=== PATIENT | female | born 1950 | race Caucasian/White ===

== ENCOUNTER → 2016-12-24 | Outpatient (CLI) | payer OTHER | LOC: BRMIMAGING 13:41 | PROVIDERS: ATTEND Internal Medicine | DX: M81.0 Age-related osteoporosis without current pathological fracture (principal); Z82.62 Family history of osteoporosis; Z78.0 Asymptomatic menopausal state ==

== ENCOUNTER → 2017-01-18 | Outpatient (CLI) | payer OTHER | LOC: BHFA 14:15 | PROVIDERS: ATTEND Internal Medicine Cardiovascular Disease | DX: Z09 Encounter for follow-up examination after completed treatment for conditions other than malignant neoplasm (principal); I77.9 Disorder of arteries and arterioles, unspecified ==

== ENCOUNTER → 2017-02-01 | Outpatient (CLI) | payer OTHER | LOC: BHFA 14:00 | PROVIDERS: ATTEND Family Medicine | DX: I67.9 Cerebrovascular disease, unspecified (principal) ==

== ENCOUNTER 2017-04-01 11:24 | Day surgery (SDC) | payer OTHER ==
[2017-04-01] MEDS ORDERED: ceFAZolin 2 GM/DEXTROSE 100 ML IV ONE (11:38)
[2017-04-01] MEDS ORDERED: LR 1,000 ML IV ONE (11:39)
[2017-04-01] MEDS ORDERED: LIDOCAINE 1% 2 ML INJ ID PRN (11:39)
[2017-04-01] MEDS ORDERED: ceFAZolin 2 GM in D5W 100 ML IV ONE (11:45)
--- NOTE | 2017-04-01 12:49 | PDHPUP ---
History & Physical Update H&P update statement: This history and physical update is based on an assessment of the patient which was completed after admission or registration (within 24 hours), but prior to the surgery/procedure. H&P update: H&P reviewed & patient examined, no change in patient's condition since H&P completed
[2017-04-01] MEDS ORDERED: BACITRACIN ZINC 14.2 GM OINTTUBE TP ONE (12:53)
[2017-04-01] MEDS ORDERED: BUPIVACAINE 0.5% 30 ML SDV ONE (12:53)
[2017-04-01] MEDS ORDERED: LIDOCAINE 1% 300 MG/30 ML SDV ONE (12:54)
[2017-04-01] MEDS ORDERED: ONDANSETRON 4 MG/2 ML VIAL IVP PRN (12:59)
[2017-04-01] MEDS ORDERED: ACETAMINOPHEN 500 MG TAB PO PRN (12:59)
[2017-04-01] MEDS ORDERED: NALOXONE HCL 0.4 MG/ML INJ IVP PRN (12:59)
[2017-04-01] MEDS ORDERED: fentaNYL 100 MCG/2 ML INJ IVP PRN (12:59)
[2017-04-01] MEDS ORDERED: HYDROCODONE/APAP 5/325 TAB PO PRN (12:59)
[2017-04-01] MEDS ORDERED: ALBUTEROL 3 ML DEYVIAL IH PRN (12:59)
--- NOTE | 2017-04-01 13:02 | PDANEPAE ---
ANE History of Present Illness Portacat ANE Past Medical History - Cardiovascular History Hx Hypertension: No Hx Arrhythmias: No Hx Chest Pain: No Hx Coronary Artery / Peripheral Vascular Disease: No Hx CHF / Valvular Disease: No Hx Palpitations: No Cardiovascular History Comment: left carotid dissection - Pulmonary History Hx COPD: No Hx Asthma/Reactive Airway Disease: No Hx Recent Upper Respiratory Infection: No Hx Oxygen in Use at Home: No Hx Sleep Apnea: No Sleep Apnea Screening Result - Last Documented: Negative - Neurologic History Hx Cerebrovascular Accident: No Hx Seizures: No Hx Dementia: No - Endocrine History Hx Diabetes: No - Renal History Hx Renal Disorders: No - Liver History Hx Hepatic Disorders: Yes Hepatic History Comment: hemangiomas - Neurological & Psychiatric Hx Hx Neurological and Psychiatric Disorders: No - Cancer History Hx Cancer: Yes Cancer History Comment: lymphoma - Congenital Disorder History Hx Congenital Disorders: No - GI History Hx Gastrointestinal Disorders: No Gastrointestinal History Comment: constipation, lymphoma to rectum - Other Health History Other Health History: none - Chronic Pain History Chronic Pain: Yes (Rfrozen shoulder) - Surgical History Prior Surgeries: 2015 cholecystectomy. parathyroid 2016,2016 biopsy for lymphoma, fibroid embolization ANE Review of Systems Review of Systems: - Exercise capacity METS (RN): 4 METS ANE Patient History - Allergies Allergies/Adverse Reactions: Sulfa (Sulfonamide Antibiotics) Allergy (Verified 02/22/14 17:28) - Home Medications Home Medications: Aspirin [Aspirin 81mg (*)] 02/23/14 [Last Taken 03/28/17] Naltrexone 3.5mg Lowdose Componded Capsule 02/23/14 [Last Taken 04/04/15] Cholecalciferol Vit D3 [Vitamin D3 (*)] 04/05/15 [Last Taken 04/04/15] Herbals/Supplements -Info Only 04/05/15 [Last Taken 04/04/15] Melatonin [Melatonin 5 mg] 04/05/15 [Last Taken 04/04/15] Simvastatin [Zocor] 04/05/15 [Last Taken 04/03/15] Cholecalciferol Vit D3 [Vitamin D3 (*)] 12/15/15 [Last Taken 03/31/17] Acetaminophen [Tylenol 325mg (*)] 03/31/17 [Last Taken 03/31/17 23:00] Acyclovir 03/31/17 [Last Taken 04/01/17 09:00] Dapsone 03/31/17 [Last Taken 04/01/17 09:00] Hydrocodone/APAP 5/325 [Hines 5/325 (*)] 03/31/17 [Last Taken Unknown] Polyethylene Glycol 3350 [Miralax 17 gm (*)] 03/31/17 [Last Taken Unknown] Sennosides/Docusate Sodium [Senokot-S] 03/31/17 [Last Taken Unknown] guaiFENesin [Mucinex 600 MG (*)] 03/31/17 [Last Taken 03/18/17] - NPO status NPO Since - Liquids (Date): 03/31/17 NPO Since - Liquids (Time): 20:30 NPO Since - Solids (Date): 03/31/17 NPO Since - Solids (Time): 23:00 - Smoking Hx Smoking Status: Never smoked - Family Anes Hx Family Hx Anesthesia Complications: none ANE Labs/Vital Signs - Vital Signs Blood Pressure: 104/65 Heart Rate: 86 Respiratory Rate: 18 O2 Sat (%): 93 Height: 149.86 cm Weight: 84.822 kg ANE Physical Exam - Airway Neck exam: FROM Mallampati Score: Class 2 Mouth exam: normal dental/mouth exam - Pulmonary Pulmonary: clear to auscultation - Cardiovascular Cardiovascular: regular rate and rhythym - ASA Status ASA Status: III ANE Anesthesia Plan Anesthesia Plan: GA w LMA (prior history of Trach 2/2 Coma)
[2017-04-01] MEDS ORDERED: PROPOFOL/EMULSION 500 MG/50 ML BOTTLE IV ONE (14:05)
[2017-04-01] MEDS ORDERED: fentaNYL 100 MCG/2 ML INJ ONE (14:28)
[2017-04-01] MEDS ORDERED: epHEDrine SULFATE 10 MG/ML SYR ONE (14:32)
[2017-04-01] MEDS ORDERED: ONDANSETRON 4 MG/2 ML VIAL ONE (14:36)
[2017-04-01] MEDS ORDERED: DEXAMETHASONE 4 MG/ML VIAL ONE (14:36)
--- NOTE | 2017-04-01 15:00 | POSTOPPROG ---
Post Op Note Date of Operation: 04/01/17 Surgeon: Lyle Ochoa Anesthesiologist: JADE Anesthesia: GET(General Endotracheal) Pre-op Diagnosis: LYMPHOMA Post-op Diagnosis: SAME Indication: CHEMO Procedure: LEFT SUBCLAVIAN PORT WITH FLOURO Findings: GOOD POSITION AND FLOW Inf/Abcess present in the surg proc area at time of surgery?: No Depth: Deep Incisional (Fascial) EBL: Minimal Complications: 0
--- NOTE | 2017-04-01 15:03 | POSTANESTH ---
Post Anesthetic Evaluation Cardiovascular Status: Normal, Stable Respiratory Status: Normal, Stable Level of Consciousness/Mental Status: Can Participate in Eval, Mildly Sleepy, Arousable Pain Control: Adequate, Prn Tx Ordered Nausea/Vomiting Control: Adequate, Prn Tx Ordered Complications Possibly Related to Anesthesia: None Noted
[2017-04-01 15:10] VITALS: TEMP 98.6
[2017-04-01] MEDS ORDERED: HYDROCODONE/APAP 5/325 TAB ONE (15:31)
[2017-04-01 16:58] VITALS: BP 105/64; PULSE 77; RESP 14; O2SAT 94
--- NOTE | 2017-04-02 15:12 | GOP ---
[f rep st] OPERATIVE REPORT DATE OF OPERATION: 04/01/2017 SURGEON: Lyle Ochoa MD DIRECTOR OF SPEECH PATHOLOGY: None. ANESTHESIOLOGIST: Tony Miller DO PREOPERATIVE DIAGNOSIS: Recurrent lymphoma. POSTOPERATIVE DIAGNOSIS: Recurrent lymphoma. PROCEDURE PERFORMED: Left subclavian port placement with fluoroscopic guidance. FINDINGS: Patient was found to have good position and good flow from the catheter. DESCRIPTION OF PROCEDURE: The patient was taken to the operating room, where she received satisfacto ry general laryngeal mask anesthetic by Dr. Miller. She was placed in supine position, prepped and dr aped in the usual sterile fashion, then placed in Trendelenburg position. A single stick was made in the left subclavian vein. Guidewire was introduced, position was confirmed with fluoroscopy. Subcu pocket was made in the 2nd intercostal space. Port tubing was passed from that pocket to the subcla vian insertion site. It was trimmed to the appropriate length using fluoroscopic guidance and then i ntroduced into the right atrium via the dilator and introducer sheath, which were removed. The port was secured to the fascia with 3-0 Vicryl. It was flushed with heparin and saline, and appeared to f unction well. The pocket was closed with 3-0 Vicryl for the subcu and a 4-0 Prolene subcuticular sti tch for the skin. The entrance site was closed with Prolene mattress suture. All wounds were infilt rated with 0.5% Marcaine and dressed. She tolerated the procedure well and was taken to the recovery room in good condition. No complications. /[id number]/MODL
== END 2017-04-01 17:20 | disposition home or self-care (01) ==
LOC: FSGY 11:24
PROVIDERS: ATTEND Surgery
DX: C83.10 Mantle cell lymphoma, unspecified site (principal); K62.9 Disease of anus and rectum, unspecified; D80.1 Nonfamilial hypogammaglobulinemia; E78.00 Pure hypercholesterolemia, unspecified; Z86.718 Personal history of other venous thrombosis and embolism; Z80.3 Family history of malignant neoplasm of breast
CPT/HCPCS: C1788; J0690; J1100; J1642; J2405; J2704; J3010

== ENCOUNTER 2017-04-07 11:18 | Observation (INO) | payer OTHER ==
[2017-04-07] MEDS ORDERED: ONDANSETRON 4 MG/2 ML VIAL IVP PRN (13:41)
[2017-04-07] MEDS ORDERED: ONDANSETRON DISINTEGRATING 4 MG TAB PO PRN (13:41)
[2017-04-07] MEDS ORDERED: NS 1,000 ML IV ONE (13:56)
--- NOTE | 2017-04-07 14:47 | GHP ---
[f rep st] HISTORY AND PHYSICAL DATE OF ADMISSION: 04/07/2017 CHIEF COMPLAINT: Fever. HISTORY OF PRESENT ILLNESS: This is a 67-year-old female with mantle cell lymphoma, sent into the spital by her primary oncologist, Dr. Elias, after having a fever in the office. History is notable fo r a complicated hospitalization early in 2017 for about 2 months at [facility], follow ing a reaction to a CAR T-cell therapy infusion. She has had a recent recurrence of her mantle cell lymphoma, had begun treatment with Rituxan by Dr. Elias. She got an infusion yesterday. She had a por t placed last week. This was due to rectal discomfort and the finding of a rectal mass. She does have a history of a PICC-associated DVT. She had 3 months of Xarelto, which ended in November. She presented today, found to be febrile to 102. She tells me that she had some chills a few days pr ior. She has no localizing symptoms including headache, stiff neck, chest pain, shortness of breath, cough, dysuria, rash on her skin, swollen joints, throat soreness. She received IV fluids and Tyleno l in the hospital, and is feeling better. PAST MEDICAL/SURGICAL HISTORY: 1. Left carotid artery dissection. 2. Osteopenia. 3. History of hypercholesterolemia. 4. Uterine fibroids. 5. Possible pleurisy/pericarditis. 6. Lymph node biopsy. 7. Parathyroidectomy. 8. Cholecystectomy. 9. Uterine embolization for fibroids. 10. . 11. Left tib-fib fracture requiring surgical fixation. MEDICATIONS: Please see medication reconciliation. ALLERGIES: Sulfa. FAMILY HISTORY: Sister had breast cancer. SOCIAL HISTORY: She is . 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 REVIEW OF SYSTEMS: A 10-point review of systems is conducted and is negative except per HPI. PHYSICAL EXAM: GENERAL: She is comfortable, in no acute distress. HEENT: Normocephalic, atraumati c. She has no pharyngeal erythema. She has no cervical lymphadenopathy. CHEST: Shows her to have a left-sided port which is accessed, there is no surrounding erythema, tenderness. CARDIOVASCULAR: Regular rate and rhythm. No murmurs, rubs, or gallops. NECK: Shows her to have no meningismus. PU LMONARY: Lungs clear to auscultation bilaterally. ABDOMEN: Abdominal exam is soft, mildly distende d, nontender to palpation. I do not appreciate any masses. SKIN: No rash. JOINT: Joint exam show s no joint effusions. : No [place]. NEUROLOGIC: Alert and oriented x3. She is moving all extremi ties. PSYCHIATRIC: Normal mood and affect. LABS: Labs from today show a hemoglobin of 6.7. White count 2.03, 80% neutrophils. Bicarb is 18. O therwise basic metabolic panel is normal. DATA: 1. Reviewed her old chart. 2. I reviewed her last chest x-ray, which was done about a week ago, shows clear lung claire, a rece ntly placed port. IMPRESSION: This is a 67-year-old female with mantle cell lymphoma, who presents with fever and anem ia. 1. Fever: We will do basic infectious workup. Urinalysis and chest x-ray will be checked. She had blood cultures drawn in clinic. I will not start empiric antibiotics at this point. She is actuall y not very symptomatic with this condition at all. 2. Hypotension: She is mildly hypotensive, but she is not tachycardic. I will give her another jose us of normal saline, and then provide slow IV fluids overnight. 3. Anemia: She will get transfused 2 units of irradiated packed red blood cells. 4. Mantle cell lymphoma: Treatment will be per Oncology. 5. Code status is full. /[id number]/MODL
[2017-04-07 15:11] LABS: COLOR AMBER; LEUKOCYTE ESTERASE,URINE NEGATIVE (NEGATIVE); NITRITE,URINE NEGATIVE (NEGATIVE)
[2017-04-07] MEDS: NS 1,000 ML IV SCH (15:30)
[2017-04-07] MEDS ORDERED: PROCHLORPERAZINE MALEATE 5 MG TAB PO PRN (15:41)
[2017-04-07] MEDS: ACETAMINOPHEN 325 MG TAB PO PRN ×2 (16:40→20:52)
--- NOTE | 2017-04-07 17:13 | GCON ---
[f rep st] CONSULTATION ONCOLOGY CONSULTATION DATE OF CONSULTATION: 04/07/2017 REASON FOR CONSULTATION: Mantle cell lymphoma. HISTORY OF PRESENT ILLNESS: The patient is a pleasant 67-year-old female, who is followed by my part ner, Dr. Dorina Elias. She was diagnosed with stage SHERI mantle cell lymphoma in July of 2012. Her initial treatment consisted of bendamustine and rituximab, which she completed in December of 2013. At t arielle of relapse, she was given ibrutinib, which she completed in January of 2016. At time of second re lapse, she was treated at the [facility] with CAR-T therapy, which she completed on August 02, 2016 after conditioning regimen with cyclophosphamide and fludarabine. She had significant cytokine release syndrome with her CAR-T therapy and developed grade 4 neurologic cytotoxicity, presumed fungal maxillary sinusitis, acute kidney injury requiring temporary dialysis, hypoxemic respiratory failure and mechanical ventilation with eventual tracheostomy, as well as a PI CC line associated right subclavian and axillary DVT. She has generally recovered from these complications. She completed a course of Xarelto anticoagulat ion in November of 2016. She is on chronic supplemental oxygen at night and does report chronic mild exertional dyspnea. Unfortunately, she recently developed recurrent mantle cell lymphoma in the rectum. She began the ri tuximab/Revlimid regimen recently. She received her first course of rituximab yesterday, April 06t h. She reports having a low-grade temperature that began over the weekend. This became acutely worse af ter receiving rituximab yesterday. She presented to the clinic today feeling unwell and was noted to have a fever of 102.3. She reports some associated chills. She denies headache. She denies a cough or purulent sputum. Sh e reports chronic dyspnea that is somewhat worse. She reports mild nausea. She denies diarrhea or a bdominal pain. Denies dysuria. Denies flank pain. She has been admitted to the hospital. She is noted to be anemic. She reports that she has had mult iple episodes of intermittent rectal bleeding related to her known mantle cell lymphoma mass in the r ectum. A 2-unit packed red cell transfusion with irradiated blood is planned for later today. A [facility] x-ray and urinalysis have been ordered as well as blood cultures. The patient is non-neutropenic. PAST MEDICAL HISTORY: 1. History of left carotid artery dissection. 2. Osteopenia. 3. Hypercholesterolemia. 4. Uterine fibroids. 5. History of pleurisy. 6. History of CAR-T therapy complication as outlined in HPI. PAST SURGICAL HISTORY: 1. Exploratory laparoscopy December 17, 2015. 2. Parathyroidectomy July 2015. 3. Cholecystectomy March 2015. 4. Uterine embolization for fibroids. 5. section x1. 6. Left tib-fib fracture requiring ORIF 2007. FAMILY MEDICAL HISTORY: Positive for a sister with breast cancer age 64. Mother with breast cancer in her 60s. Paternal grandfather had "cancer," type unknown. SOCIAL HISTORY: The patient is . 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 arleen is now retired. She is a nonsmoker. She does not drink alcohol. REVIEW OF SYSTEMS: As outlined above. Remainder of 12-point review of systems otherwise negative. PHYSICAL EXAMINATION: GENERAL: Somewhat frail-appearing, elderly female, who is in no acute distres s. She is lying comfortably in bed. She is using supplemental oxygen. HEENT: There is no scleral icterus. LYMPHATIC: There is no palpable submandibular, cervical, or supraclavicular adenopathy. C HEST: The patient has a Mediport in the left chest wall (this was placed on of last week). Site is clean without induration or evidence of infection. LUNGS: Sounds are decreased at both bas es. No wheeze or rhonchi. ABDOMEN: No flank tenderness. Abdomen is soft, nontender, nondistended. Bowel sounds normoactive. EXTREMITIES: No extremity swelling or edema. SKIN: No visible skin ra . NEUROLOGIC: Patient alert, oriented, and appropriate. LABORATORY STUDIES: White count is 2.03, hemoglobin 6.7, hematocrit 22.1, platelet count 130,000, ab solute neutrophil count is 1630. BUN 15, creatinine 0.8, sodium 137, potassium 3.7, chloride 106, bi carb 18, calcium 8.4. Liver function tests normal. Chest x-ray, blood cultures, and urinalysis are pending. IMPRESSION: 1. Mantle cell lymphoma, now with disease recurrence in rectum, status post first cycle of rituximab yesterday, April 06. 2. Non-neutropenic fever. 3. Recent history of CAR-T therapy (August 02, 2016). 4. Anemia, likely due to intermittent bleeding from #1. 5. Chronic hypoxemia, likely due to history of hypoxemic respiratory failure at time of CAR-T therap y. 6. History of catheter-associated deep venous thrombosis August 2016. The patient is a pleasant 67-year-old female who was admitted with non-neutropenic fever. She has no focal sign of bacterial infection on exam. Given that she is non-neutropenic and appears clinically stable, I agree with the decision to withhold antibiotic therapy currently. If she were to have any concerning findings on her chest x-ray, urinalysis or blood cultures, antibiotic therapy would be in itiated at that time. She will receive 2 units of packed red blood cells. These will be irradiated as per the direction of her primary oncologist, Dr. Elias. I have confirmed that the blood cells ordered for this evening are irradiated products. This has been confirmed with nursing staff. The patient will be observed in the hospital. If she improves quickly over the next 24 hours, she co uld potentially be discharged tomorrow or the day following. She informs me that she is due for IVIG tomorrow. If she remains inpatient tomorrow, this could pote ntially be given during her hospital stay. Her questions were answered. Her case was discussed with Dr. Mcdonnell of the hospitalist service, as well as 1 [place] nursing staff. Total time for today's visit was approximately 50 minutes, of which greater than 50% was spent in cou nseling and care coordination. Copy requested to: Dr. Nils Pollard /[id number]/MODL
[2017-04-07] MEDS: ACYCLOVIR 400 MG TAB PO SCH (21:35)
[2017-04-08] MEDS: ACETAMINOPHEN 325 MG TAB PO PRN (05:21)
[2017-04-08 05:45] LABS: ADD DIFF? YES; ADD MORPH? NO; ADD SCAN? NO; ATYPICAL LYMPHOCYTE FLAG 0 (0-99); FRAGMENT RBC FLAG 0 (0-99); HEMATOCRIT 25.5 % (38.0-47.0); HEMOGLOBIN 8.6 g/dL (12.6-16.3); LEFT SHIFT FLG 70 (0-99); LIPEMIA HEMOLYSIS FLAG 80 (0-99); MEAN CELL HEMOGLOBIN 30.4 pg (27.9-34.1); MEAN CELL HEMOGLOBIN CONCENTR. 33.7 g/dL (32.4-36.7); MEAN CELL VOLUME 90.1 fL (81.5-99.8); MEAN PLATELET VOLUME 9.8 fL (8.7-11.7); PLATELET CLUMPS FLAG 10 (0-99); PLATELET COUNT 102 10^3/uL (150-400); RED BLOOD CELL COUNT 2.83 10^6/uL (4.18-5.33); RED CELL DISTRIBUTION WIDTH 17.5 % (11.5-15.2)
[2017-04-08 06:03] LABS: ALANINE AMINOTRANSFERASE 33 IU/L (9-52); ALBUMIN 2.4 g/dL (3.5-5.0); ALKALINE PHOSPHATASE 106 IU/L (38-126); ANION GAP 8 mEq/L (8-16); ASPARTATE AMINOTRANSFERASE 24 IU/L (14-46); BILIRUBIN,TOTAL 2.8 mg/dL (0.1-1.4); CARBON DIOXIDE 21 mEq/l (22-31); CHLORIDE 111 mEq/L (97-110); CREATININE 0.8 mg/dL (0.6-1.0); GLOMERULAR FILTRATION RATE > 60; GLUCOSE 88 mg/dL (70-100); POTASSIUM 3.7 mEq/L (3.5-5.2); SODIUM 140 mEq/L (134-144); TOTAL PROTEIN 4.3 g/dL (6.3-8.2)
[2017-04-08 06:27] LABS: PLATELET ESTIMATE DECREASED (ADEQ)
[2017-04-08 06:28] LABS: HYPOCHROMIA 1+; POLYCHROMASIA 1+
[2017-04-08 06:41] LABS: BILIRUBIN-CONJUGATED 0.3 mg/dL (0.0-0.5); BILIRUBIN-UNCONJUGATED 2.5 mg/dL (0.0-1.1)
--- NOTE | 2017-04-08 08:34 | SOAPPROG ---
SOAP Progress Note Assessment/Plan: Assessment: 1) Mantle cell lymphoma with isolated rectal recurrence 2) Pancytopenia secondary to #1 3) Symptomatic anemia likely secondary to rectal bleeding from #1 4) Non neutropenic fever 5) H/O catheter related DVT 08/28 Plan: Erica feels better after receiving PRBC's yesterday. She would like to go home today. She did have a high temp last evening, but none currently. Chest x-ray and UA do not reveal a source of infection. I suspect that she may have either a viral process or a reaction to Rituxan. If she does well this AM (no further fevers, and a reasonable level of activity) , she will be d/c home later today. I discussed her case with Dr. Elias. She is due for IVIG today, our office will call her to change that to tomorrow at [facility]. She can be re-evaluated then. Her Revlimid will be delivered to her home today, and she is instructed to start it when it arrives. Plan d/w Dr. Mcdonnell. Patient questions answered. 04/08/17 08:28 Subjective: Feels better. Denies chest pain or cough. No further high fevers overnight. Objective: Vital Signs Temp Pulse Resp BP Pulse Ox 37.7 C 79 16 117/65 93 04/08/17 05:17 04/08/17 03:05 04/08/17 03:05 04/08/17 03:05 04/08/17 03:05 Laboratory Results 04/08/17 05:30 04/08/17 05:30 04/07/17 04/08/17 04/09/17 05:59 05:59 05:59 Intake Total 1356 Balance 1356 - Time Spent With Patient Time Spent With Patient: 30 minutes Physical Exam - Physical Exam General Appearance: alert, no apparent distress EENT: PERRL/EOMI Respiratory: lungs clear, other (using supplemental oxygen) Cardiac/Chest: regular rate, rhythm Abdomen: non-tender, soft Neuro/Psych: alert, normal mood/affect ICD10 Worksheet Patient Problems: Problems Problem Status Onset Abdominal mass Acute Acute cholecystitis Acute Uterine fibroid Acute Vaginal hemorrhage Acute
[2017-04-08] MEDS: ACYCLOVIR 400 MG TAB PO SCH (08:49)
[2017-04-08 08:59] VITALS: BP 109/61; PULSE 72; RESP 20; TEMP 98.4
[2017-04-08] MEDS: NS 1,000 ML IV SCH (08:59)
[2017-04-08] MEDS ORDERED: DAPSONE 100 MG TAB PO SCH (09:00)
[2017-04-08] MEDS ORDERED: ENOXAPARIN 40 MG/0.4 ML SYR SC SCH (09:00)
[2017-04-08 09:01] VITALS: O2SAT 90
--- NOTE | 2017-04-08 12:12 | GDS ---
[f rep st] DISCHARGE SUMMARY DIAGNOSES: 1. Mantle cell lymphoma with isolated rectal recurrence. 2. Pancytopenia, secondary to mantle cell lymphoma. 3. Symptomatic anemia status post transfusion of 2 units packed red blood cells. 4. Fever. 5. History of catheter-related deep vein thrombosis. HOSPITAL COURSE: A 67-year-old female admitted with a fever. No clear source was found. X-ray was negative. Urinalysis was negative. She did not receive empiric antibiotics. This could potentially be a viral syndrome. She feels much better today. She was anemic. She has mantle cell lymphoma and also has a rectal recurrence, with some slow bleedi ng from there. She did receive 2 units of packed red blood cells. She will be discharged, she will start Revlimid tonight, she will follow up for IVIG at [facility] tomorrow. She is anxious for discharge a nd comfortable with this plan. DISPOSITION: Discharged in stable condition. /[id number]/MODL
--- NOTE | 2017-04-08 17:17 | ASMTCMCOM ---
CM Note CM Note Notes: Pt admitted with fever. She is being DC'd today with no needs. Date Signed: 04/08/2017 05:17 PM Electronically Signed By:Roxy Castro LCSW
--- NOTE | 2017-04-09 09:51 | ASDISCHSUM ---
Discharge Information Plan Status: Medically Cleared to Leave: Discharge Date:04/08/2017 01:13 PM D/C Disposition: ADT D/C Disposition:Home, Routine, Self-Care Projected Discharge Date:04/08/2017 01:13 PM Transportation at D/C: Discharge Delay Reason: Follow-Up Date:04/08/2017 01:13 PM Discharge Slot: Final Diagnosis: Placement Information Patient Contact Information Contact Name:JULIEN Relationship:Dhaval Address: City:[place] Alternate Phone: State/Zip Code:[place] Email: Financial Information Financial Class: Primary Plan Desc:MEDICARE OUTPATIENT Primary Plan Number:[id number] Secondary Plan Desc:[employer] Secondary Plan Number:[id number] Assessment Information [facility] CM Progress Note CM Note CM Note Notes: Pt admitted with fever. She is being DC'd today with no needs. Date Signed: 04/08/2017 05:17 PM Electronically Signed By:Roxy Castro LCSW Intervention Information Intervention Type:*JAMES-Signed Date of Service:04/07/2017 03:53 PM Patient Type:Inpatient Staff Member:BERENICE Burrell, Marlyn Hours: Discipline: Severity: Comment:
== END 2017-04-08 13:13 | disposition home or self-care (01) ==
LOC: INTOOBSV 12:46 → F1N 12:46
PROVIDERS: ADMIT Student in an Organized Health Care Education/Training Program; ATTEND Student in an Organized Health Care Education/Training Program
PROC: 30233N1 Transfusion of Nonautologous Red Blood Cells into Peripheral Vein, Percutaneous Approach (ICD-10-PCS; principal; 2017-04-07)
DX: C83.10 Mantle cell lymphoma, unspecified site (principal); D61.810 Antineoplastic chemotherapy induced pancytopenia; D63.0 Anemia in neoplastic disease; R50.9 Fever, unspecified; I95.9 Hypotension, unspecified; Z86.718 Personal history of other venous thrombosis and embolism; Z80.3 Family history of malignant neoplasm of breast
CPT/HCPCS: 36430; 71020; G0378; G0379; J1650; P9016; P9040

== ENCOUNTER → 2017-04-20 | Outpatient (CLI) | payer OTHER ==
[~2017-04-20] MED LIST: IOPAMIDOL (ISOVUE 370) 100 ML BTL IV ONE
== END ==
LOC: FIMAGING 13:22
PROVIDERS: ATTEND Physician Assistant
DX: C83.19 Mantle cell lymphoma, extranodal and solid organ sites (principal)
CPT/HCPCS: 71275; Q9967

== ENCOUNTER → 2017-04-28 | Outpatient (CLI) | payer OTHER ==
[~2017-04-28] MED LIST changes: +ACETAMINOPHEN 325 MG TAB PO ONE; -IOPAMIDOL (ISOVUE 370) 100 ML BTL IV ONE; +diphenhydrAMINE 25 MG CAP PO ONE
== END ==
LOC: FOBOP 13:30
PROVIDERS: ATTEND Internal Medicine Hematology & Oncology
PROC: 30233N1 Transfusion of Nonautologous Red Blood Cells into Peripheral Vein, Percutaneous Approach (ICD-10-PCS; principal; 2017-04-28)
DX: C85.90 Non-Hodgkin lymphoma, unspecified, unspecified site (principal); D80.1 Nonfamilial hypogammaglobulinemia
CPT/HCPCS: 36430; J1642; P9016; P9040

== ENCOUNTER → 2017-05-13 | Outpatient (CLI) | payer OTHER | LOC: BHFA 16:30 | PROVIDERS: ATTEND Internal Medicine Cardiovascular Disease | DX: Z51.11 Encounter for antineoplastic chemotherapy (principal) ==

== ENCOUNTER → 2017-05-19 | Outpatient (CLI) | payer OTHER | LOC: BHFA 08:00 | PROVIDERS: ATTEND Internal Medicine Cardiovascular Disease | DX: R06.02 Shortness of breath (principal) ==

== ENCOUNTER → 2017-05-27 | Outpatient (CLI) | payer OTHER | LOC: FOBOP 14:43 | PROVIDERS: ATTEND Internal Medicine Hematology & Oncology | PROC: 30233N1 Transfusion of Nonautologous Red Blood Cells into Peripheral Vein, Percutaneous Approach (ICD-10-PCS; principal; 2017-05-27) | DX: C83.10 Mantle cell lymphoma, unspecified site (principal) | CPT/HCPCS: 36430; J1642; P9016; P9040 ==

== ENCOUNTER → 2017-06-02 | Outpatient (CLI) | payer OTHER ==
[~2017-06-02] MED LIST changes: -ACETAMINOPHEN 325 MG TAB PO ONE; +IOPAMIDOL (ISOVUE 370) 100 ML BTL IV ONE; -diphenhydrAMINE 25 MG CAP PO ONE
== END ==
LOC: FIMAGING 14:56
PROVIDERS: ATTEND Internal Medicine Hematology & Oncology
DX: R16.1 Splenomegaly, not elsewhere classified (principal); J98.11 Atelectasis; R07.9 Chest pain, unspecified; J90 Pleural effusion, not elsewhere classified; Z85.72 Personal history of non-Hodgkin lymphomas
CPT/HCPCS: 71275; Q9967

== ENCOUNTER 2017-06-09 11:05 | Outpatient (CLI) | payer OTHER ==
[2017-06-09] MEDS ORDERED: diphenhydrAMINE 25 MG CAP PO ONE (11:30)
[2017-06-09] MEDS ORDERED: ACETAMINOPHEN 325 MG TAB PO ONE (11:30)
[2017-06-09 12:16] VITALS: BP 119/57; PULSE 77; RESP 24; TEMP 98.2; O2SAT 91
== END 2017-06-09 16:30 | disposition home or self-care (01) ==
LOC: FOBOP 11:05
PROVIDERS: ATTEND Internal Medicine Hematology & Oncology
PROC: 30233N1 Transfusion of Nonautologous Red Blood Cells into Peripheral Vein, Percutaneous Approach (ICD-10-PCS; principal; 2017-06-09)
DX: C83.10 Mantle cell lymphoma, unspecified site (principal)
CPT/HCPCS: 36430; J1642; P9016; P9040

== ENCOUNTER 2017-06-24 09:39 | Outpatient (CLI) | payer OTHER ==
[2017-06-24] MEDS ORDERED: diphenhydrAMINE 25 MG CAP PO ONE (10:30)
[2017-06-24] MEDS ORDERED: ACETAMINOPHEN 325 MG TAB PO ONE (10:30)
== END 2017-06-24 16:12 | disposition home or self-care (01) ==
LOC: FOBOP 09:39
PROVIDERS: ATTEND Internal Medicine Hematology & Oncology
PROC: 30233N1 Transfusion of Nonautologous Red Blood Cells into Peripheral Vein, Percutaneous Approach (ICD-10-PCS; principal; 2017-06-24)
DX: C85.90 Non-Hodgkin lymphoma, unspecified, unspecified site (principal); D80.1 Nonfamilial hypogammaglobulinemia

== ENCOUNTER 2017-07-03 08:00 | Inpatient (IN) | payer OTHER ==
[2017-07-03] MEDS ORDERED: LET GEL TOPICAL 1 EA SYR TP ONE ×2 (08:40→08:42)
--- NOTE | 2017-07-03 09:02 | EDPHY ---
H & P Stated Complaint: Rectal bleeding;has hx rectal tumor HPI/ROS: Chief complaint: Rectal bleeding History of present illness: This is a 67-year-old female with a reported history of rectal cancer currently on chemotherapy who presents to the emergency department for rectal bleeding. She reports the bleeding began at approximately 7:00 a.m. this morning. She reports bright red blood per rectum. Symptoms have been persistent. She denies precipitating factors. She denies alleviating or aggravating factors. She denies other acute signs or symptoms. However, she has ongoing abdominal discomfort, constipation, nausea without vomiting. She has had the symptoms for number of weeks if not longer. No report of fever. No urinary symptoms. Review of systems: A 10 point review of systems was obtained and other than described above was negative - Personal History Current Tetanus Diphtheria and Acellular Pertussis (TDAP): Yes - Medical/Surgical History Hx Asthma: No Hx Chronic Respiratory Disease: No Hx Diabetes: No Hx Cardiac Disease: No Hx Renal Disease: No Hx Cirrhosis: No Hx Alcoholism: No Hx HIV/AIDS: No Hx Splenectomy or Spleen Trauma: No Other PMH: pmh- lymphoma--chemotherapy, uterine fibroids, disected carotoid artery (2002),2007 broken tib/fib. psh- GALLBLADDER, PARATHYROID, TIB/FIB - Social History Smoking Status: Never smoked - Physical Exam Exam: General Appearance: Alert, nontoxic. Eyes: Pupils equal and round no pallor or injection. ENT, Mouth: Mucous membranes moist. Respiratory: There are no retractions, lungs are clear to auscultation. Cardiovascular: Regular rate and rhythm. Gastrointestinal: Bowel sounds are present. Abdomen is distended. Diffusely tender to palpation. Rectal exam does show bright red blood around the anus. No active bleeding on my examination. Neurological: Alert and oriented x4. Skin: Warm and dry, no rashes. Musculoskeletal: Neck is supple non tender. Extremities are symmetrical, full range of motion. Psychiatric: Patient is oriented X 3, there is no agitation. Constitutional: Initial Vital Signs Temperature (C) 36.6 C 07/03/17 08:05 Heart Rate 110 H 07/03/17 08:05 Respiratory Rate 18 07/03/17 08:05 Blood Pressure 118/61 07/03/17 08:05 O2 Sat (%) 94 07/03/17 08:05 O2 Delivery Mode Room Air Allergies/Adverse Reactions: Sulfa (Sulfonamide Antibiotics) Allergy (Mild, Verified 07/03/17 08:12) Rash Home Medications: Medication Instructions Recorded Herbals/Supplements -Info Only 1 each PO DAILY 04/05/15 Cholecalciferol Vit D3 [Vitamin D3 1,000 units PO DAILY 12/15/15 (*)] Acyclovir [Zovirax 400 mg (*)] 400 mg PO BID 03/31/17 Dapsone [Dapsone 100 mg (*)] 100 mg PO DAILY 03/31/17 Bendamustine HCl [Bendeka (*)] 64 mg IV .MONTHLY 06/09/17 Bortezomib [Velcade IV] 1.7 mg IV .WEEKLY 06/09/17 riTUXimab [Rituxan 500mg (*)] 480 mg IV .MONTHLY 06/09/17 Lactulose [Lactulose] 15 ml PO DAILY PRN 07/03/17 Polyethylene Glycol 3350 [Miralax 17 gm PO DAILY PRN 07/03/17 17 gm (*)] Prochlorperazine Maleate 10 mg PO DAILY PRN 07/03/17 [Compazine 10mg (*)] Sennosides [Senokot 8.6mg (OTC)] 1 each PO DAILY PRN 07/03/17 oxyCODONE IR [Oxycodone Ir (*)] 5 mg PO DAILY PRN 07/03/17 Medical Decision Making ED Course/Re-evaluation: Patient is discussed with my secondary supervising physician Dr. Nick Jackson. Patient presents with bright red bleeding from her rectum. She is significantly anemic although she is normally rather anemic. Given active bleeding and level of anemia she will be admitted for further care to Dr. Bony Mcdonnell. I have consulted with GI Dr. Jade. He did a flex sigmoidoscopy on patient in the fall of 2016. He suspects bleeding from her rectal lymphoma. He would like to know hospitalist's and oncology's thoughts about how they would like him to proceed. He is happy to do another flexible sigmoidoscopy. I have consulted with patient's oncology group, Dr. Ribeiro. She did talk with the patient this morning. She is not sure is the cause of bleeding. She is in agreement with admission. The plan has been discussed with the patient voiced understanding and agreement with it. Differential Diagnosis: Included but not limited to lower gastrointestinal bleed, upper gastrointestinal bleed, coagulopathy - Data Points Laboratory Results: Laboratory Results 07/03/17 09:15 07/03/17 09:15 07/03/17 07/03/17 07/03/17 09:15 09:15 09:15 WBC RBC Hgb Hct MCV MCH MCHC RDW Plt Count MPV Neut % (Auto) Lymph % (Auto) [place] % (Auto) Eos % (Auto) Baso % (Auto) Nucleat RBC Rel Count Absolute Neuts (auto) Absolute Lymphs (auto) Absolute Monos (auto) Absolute Eos (auto) Absolute Basos (auto) Absolute Nucleated RBC Immature Gran % Seg Neutrophils % Band Neutrophils % Lymphocytes % Monocytes % Eosinophils % Metamyelocytes % Myelocytes % Immature Gran # Absolute Seg Neuts Absolute Band Neuts Absolute Lymphocytes Absolute Monocytes Absolute Eosinophils Absolute Metamyelocyte Absolute Myelocytes Platelet Estimate Polychromasia Hypochromasia Stomatocytes Smear Review By PT 13.3 SEC SEC (12.0-15.0) INR 0.99 (0.83-1.16) APTT 25.5 SEC SEC (23.0-38.0) Sodium 137 mEq/L mEq/L (135-145) Potassium 4.5 mEq/L mEq/L (3.5-5.2) Chloride 102 mEq/L mEq/L (97-110) Carbon Dioxide 25 mEq/l mEq/l (22-31) Anion Gap 10 mEq/L mEq/L (8-16) BUN 20 mg/dL mg/dL (7-23) Creatinine 0.7 mg/dL mg/dL (0.6-1.0) Estimated GFR > 60 Glucose 98 mg/dL mg/dL (70-100) Calcium 9.3 mg/dL mg/dL (8.5-10.4) Total Bilirubin 1.3 mg/dL mg/dL (0.1-1.4) Conjugated Bilirubin 0.2 mg/dL mg/dL (0.0-0.5) Unconjugated Bilirubin 1.1 mg/dL mg/dL (0.0-1.1) AST 17 IU/L IU/L (14-46) ALT 24 IU/L IU/L (9-52) Alkaline Phosphatase 98 IU/L IU/L (38-126) Total Protein 5.2 g/dL L g/dL (6.3-8.2) Albumin 3.1 g/dL L g/dL (3.5-5.0) Lipase 37 IU/L IU/L (23-300) Patient ABO/Rh A POSITIVE Antibody Screen NEGATIVE Crossmatch IS Only See Detail 07/03/17 09:15 WBC 6.76 10^3/uL 10^3/uL (3.80-9.50) RBC 2.44 10^6/uL L 10^6/uL (4.18-5.33) Hgb 7.5 g/dL L g/dL (12.6-16.3) Hct 23.5 % L % (38.0-47.0) MCV 96.3 fL fL (81.5-99.8) MCH 30.7 pg pg (27.9-34.1) MCHC 31.9 g/dL L g/dL (32.4-36.7) RDW 21.2 % H % (11.5-15.2) Plt Count 171 10^3/uL 10^3/uL (150-400) MPV 10.4 fL fL (8.7-11.7) Neut % (Auto) Not Reported Lymph % (Auto) Not Reported Valencia % (Auto) Not Reported Eos % (Auto) Not Reported Baso % (Auto) Not Reported Nucleat RBC Rel Count 0.0 % % (0.0-0.2) Absolute Neuts (auto) Not Reported Absolute Lymphs (auto) Not Reported Absolute Monos (auto) Not Reported Absolute Eos (auto) Not Reported Absolute Basos (auto) Not Reported Absolute Nucleated RBC 0.00 10^3/uL 10^3/uL (0-0.01) Immature Gran % Not Reported Seg Neutrophils % 52 % % Band Neutrophils % 28 % % Lymphocytes % 2 % % Monocytes % 11 % % Eosinophils % 2 % % Metamyelocytes % 4 % % Myelocytes % 1 % % Immature Gran # Not Reported Absolute Seg Neuts 3.52 10^/uL 10^/uL (1.70-6.50) Absolute Band Neuts 1.89 10^3/uL H 10^3/uL (0.00-0.70) Absolute Lymphocytes 0.14 10^3/uL L 10^3/uL (1.00-3.00) Absolute Monocytes 0.74 10^3/uL 10^3/uL (0.30-0.80) Absolute Eosinophils 0.14 10^3/uL 10^3/uL (0.03-0.40) Absolute Metamyelocyte 0.27 10^3/mL H 10^3/mL (0.00-0.00) Absolute Myelocytes 0.07 10^3/mL H 10^3/mL (0.00-0.00) Platelet Estimate ADEQUATE (ADEQ) Polychromasia 2+ H Hypochromasia 2+ H Stomatocytes 1+ H Smear Review By Pending PT INR APTT Sodium Potassium Chloride Carbon Dioxide Anion Gap BUN Creatinine Estimated GFR Glucose Calcium Total Bilirubin Conjugated Bilirubin Unconjugated Bilirubin AST ALT Alkaline Phosphatase Total Protein Albumin Lipase Patient ABO/Rh Antibody Screen Crossmatch IS Only Medications Given: Discontinued Medications Tetracaine/Epinephrine/Lidocaine (Let Gel Topical) 1 ea TP EDNOW ONE Stop: 07/03/17 08:43 Last Admin: 07/03/17 08:43 Dose: 1 ea Departure - Departure Disposition: [facility] Inpatient Acute Clinical Impression: Rectal bleed Anemia Qualifiers: Anemia type: unspecified type Qualified Code(s): D64.9 - Anemia, unspecified Condition: Fair
[2017-07-03 09:26] LABS: PLATELET COUNT 171 10^3/uL (150-400)
[2017-07-03 09:36] LABS: INR 0.99 (0.83-1.16); PROTIME(PATIENT) 13.3 SEC (12.0-15.0)
[2017-07-03] MEDS ORDERED: ONDANSETRON 4 MG/2 ML VIAL IVP PRN (11:54)
[2017-07-03] MEDS ORDERED: ONDANSETRON DISINTEGRATING 4 MG TAB PO PRN (11:54)
[2017-07-03] MEDS ORDERED: PROCHLORPERAZINE MALEATE 10 MG TAB PO PRN (11:57)
[2017-07-03] MEDS ORDERED: oxyCODONE IR 5 MG TAB PO PRN (11:57)
[2017-07-03] MEDS ORDERED: POLYETHYLENE GLYCOL 3350 17 GM PKT PO PRN (11:57)
[2017-07-03] MEDS ORDERED: SENNOSIDES 1 TAB PO PRN (11:57)
[2017-07-03] MEDS ORDERED: IOPAMIDOL (ISOVUE-300) 100 ML BTL ONE (12:01)
--- NOTE | 2017-07-03 12:39 | GHP ---
[f rep st] HISTORY AND PHYSICAL DATE OF ADMISSION: 07/03/2017 CHIEF COMPLAINT: GI bleed. HISTORY OF PRESENT ILLNESS: This is a 67-year-old female with a history of mantle cell lymphoma with a rectal recurrence. She has been treated by Dr. Elias for this. She notes that over the last week, she has had significant constipation, has not had a bowel movement, has tried multiple laxatives. Raiza bacon tried MiraLAX, magnesium citrate, suppository, lactulose. Over the past 2 days, she has had worsen ing rectal pain when she stands. Her abdomen has become more distended. She has had a small bit of nausea, but no vomiting. Today, she had worsening bleeding when she pushe d trying to go to the bathroom. She has off and on slow bleeding from her bottom, however this was n otably worse. It has continued. She is not feeling dizzy or lightheaded. PAST MEDICAL/SURGICAL HISTORY: 1. Mantle cell lymphoma as above. 2. Left carotid artery dissection. 3. 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 Hospitalized at 2 months at [facility]. 4. Osteopenia. 5. Hypercholesterolemia. 6. Fibroids. 7. Possible pleurisy/pericarditis. 8. Lymph node biopsy. 9. Parathyroidectomy. 10. Cholecystectomy. 11. Uterine embolization. 12. . 13. Left Tib Fib fracture requiring surgical fixation. MEDICATIONS: Please see medication reconciliation. ALLERGIES: None. FAMILY HISTORY: Her sister had breast cancer. SOCIAL HISTORY: She is . 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 She live s at home. She does not use any assistive devices for ambulating. REVIEW OF SYSTEMS: A 10-point review of systems is conducted and is negative except per HPI. PHYSICAL EXAM: VITAL SIGNS: Blood pressure 114/65, heart rate 89, respiration rate 16, saturating 9 3% on 2 L, temperature is 37. GENERAL: The patient is a pleasant female, resting comfortably in bed , in no acute distress. HEENT: Normocephalic, atraumatic. CARDIOVASCULAR: Regular rate and rhythm . She has a 2/6 systolic murmur. PULMONARY: Exam shows her to be in no respiratory distress. LUNG S: Clear bilaterally. ABDOMEN: Shows her abdomen to be distended. She does have bowel sounds. Raiza bacon is very mildly tender to palpation. RECTAL: Exam shows her to have cosme red blood. There is a p alpable tumor approximately 3 cm into her rectum. This is somewhat painful. SKIN: Shows no rash. : Exam shows no [place]. NEUROLOGIC: Exam shows her to be alert and oriented x3. She has a nonfoc al neurologic exam. PSYCHIATRIC: Exam shows normal mood and affect. LABS: Hemoglobin is 7.5. INR 0.99. Basic metabolic panel is normal. Albumin is 3.1. DATA: 1. I discussed this with Dr. Jade. He will consult later this afternoon. 2. I reviewed her chart. IMPRESSION AND PLAN: 1. Lower gastrointestinal bleed: Suspect that this is likely due to rectal mass. She has also had worsening pain while standing. She does have internal hemorrhoids, which would have to consider, tho ugh I think this is less likely. She is hemodynamically stable, though she was mildly tachycardic wh en she first presented. I think it is reasonable not to perform a flex sig today, as we know the lik oly source of bleeding. There is unlikely any therapeutic interventions. We will transfuse her 1 un it of packed red blood cells given her active bleeding and baseline low hemoglobin. She is not on an y blood thinners right now. 2. Constipation/possible obstruction: Also discussed with Dr. Jade. She had a flex sig 1 month a go in [place], which showed no obstruction. I think CT scan at this point is appropriate. Could cons ider endoscopy tomorrow based on findings and clinical course. We will provide her with lactulose an d other p.r.n. laxatives for now. 3. Mantle cell lymphoma: She is currently undergoing treatment. She will be seen by Dr. Quintin padilla. CT scan will help to evaluate progression as well. We will continue her acyclovir dapsone at this point. 4. Code status: She would like to be full. 5. Venous thromboembolism risk is moderate to high, however with active bleeding pharmacologic proph ylaxis contraindicated. Sequential compression devices. /[id number]/MODL
--- NOTE | 2017-07-03 13:02 | PDMN ---
Medical Necessity Medical necessity: C/M review: est. > 2 MN LOS for eval and TX of acute lower gastrointestinal bleed - suspect likely due to rectal mass, constipation, possible obstruction requiring 1 unit PRBCs, planned 07/03/2017 CT abdomen / pelvis, Oncology consult, GI consult, ongoing oral lactulose, other laxatives as needed, monitor CBC, comorbid history of mantle cell lymphoma with a rectal recurrence currently undergoing treatment, left carotid artery dissection, severe reaction to CAR-T-cell therapy infusion requiring hospitalization, osteopenia, hypercholesterolemia, fibroids, possible pleurisy / pericarditis per H/P.
[2017-07-03] MEDS ORDERED: diphenhydrAMINE 25 MG CAP PO ONE ×2 (14:00)
[2017-07-03] MEDS: ACETAMINOPHEN 325 MG TAB PO PRN (14:15)
--- NOTE | 2017-07-03 14:56 | GCON ---
[f rep st] CONSULTATION NEW PATIENT CONSULTATION CONSULTING PHYSICIAN: Bony Mcdonnell. REASON FOR CONSULTATION: Patient known to [facility], specifically a patient of Dr. Dorina Elias, with mantle cell lymphoma of the rectum. Patient admitted for rectal bleeding. HISTORY OF PRESENT ILLNESS: The patient is a very pleasant 67-year-old woman who is currently under the care of Dr. Dorina Elias for mantle cell lymphoma. The patient's history starts back in 2012, when she saw Dorina Elias for leukocytosis. Ultimately, a bone marrow was done that showed mantle cell lymphoma, and scans were consistent. She was initially treated with bendamustine and rituximab from July 2013 to December of 2013. She then went on to biologic therapy with ibrutinib when she progressed. This was given in January of 2016. Then she was given Revlimid and dexamethasone from March 2017 until May 2017 and progressed. More recently, she was on immunotherapy with CAR-T cells. This was done in July 2016 with cyclophosphamide and fludarabine conditioning regimen under the care of Dr. Leobardo Pollard at [facility]. The patient's scans at that time looked very good, and Dorina Elias was following her conservatively. The patient reports at that time she started to feel abdominal fullness and pressure and came back into the clinic. More recently, a PET-CT was done in May 2017, showing progression of mantle cell lymphoma evidenced by marked increased size of infiltrative rectal mass and lymphadenopathy in the low pelvis, and new infiltrative mass emanating off the superior aspect of spleen and left upper quadrant. She also had a small left pleural effusion. The conglomerate mass that encases and is inseparable from the rectum measured 10.6 cm medially by 7.1 cm AP. She has associated lymphadenopathy. The patient is now on a regimen of Velcade, bendamustine, and Rituxan. She received cycle 1, day 22 on 06/30/2017 and was due to start cycle 2 of chemotherapy 07/14/2017. I will note she has had significant issues with constipation on low dose of narcotics. Today, I received a phone call this morning. The patient complaining of ongoing rectal blood loss. She states the blood was nonstop, only stopped for a short period of time when she was lying down. She also complains of difficulty urinating, significant lower abdominal pressure and bloating. She does report she has been constipated. She has been taking a regimen of magnesium citrate, lactulose, Senokot, etc., and this was on an outpatient ongoing basis due to severe constipation. Today, she does report she had some diarrhea in the emergency room. She reports some drenching night sweats a few days ago. Her weight has been stable. She denies fevers. PAST MEDICAL HISTORY: 1. Significant for mantle cell lymphoma, as described above, with recurrence 8 months post CAR-T cell therapy. 2. Anemia. 3. Hypogammaglobulinemia. 4. Right upper extremity DVT, not currently on anticoagulation. 5. Dyspnea with exertion. 6. Constipation. FAMILY HISTORY: Noncontributory. SOCIAL HISTORY: Noncontributory. Medications have been reviewed in EMR, as well as allergies. REVIEW OF SYSTEMS: As per HPI. Otherwise, review of systems negative. PHYSICAL EXAM: VITAL SIGNS: Today, blood pressure 117/64, pulse of 93, respiration rate 16, satting 92% on 4 L of oxygen. Her temp is 36.9. GENERAL: Looks older than her stated age, frail, not in acute distress but fatigued appearing. HEENT: Anicteric sclera but pale conjunctiva. HEART: Regular rate and rhythm. LUNGS: She has some crackles at the left lower base, otherwise clear. ABDOMEN: Distended. Bowel sounds are present but diminished. She is tender throughout. LOWER EXTREMITIES: No significant edema. NEUROLOGIC: Nonfocal. LABORATORY DATA: Labs today show a white blood cell count of 6.7; hemoglobin 7.5, her baseline is anywhere between 7.3 and 9; hematocrit 23.5; platelet count of 171,000. INR 0.99. Sodium 137, potassium 4.5, creatinine 0.7, calcium 9.3. Total bilirubin 1.3, AST 17, ALT 24, total protein 5.2, albumin 3.1, lipase of 37. I will mention her LDH has been going up and was recently over 1000. ASSESSMENT AND PLAN: 67-year-old woman with mantle cell lymphoma, progressed, and now on Velcade, bendamustine and rituximab. She presents with ongoing rectal bleeding, lower pelvic pain and bloating. 1. Rectal bleeding. Certainly concern related to the large rectal mass that was seen on PET-CT in May of 2017. Patient does also have a history of hemorrhoids. Her constipation may have led to hemorrhoidal bleed, although I do think the mass may need to be evaluated. If there is ongoing bleeding there , we may need short-term intervention. If internal mass is larger, could consider local/palliative XRT. (discuss below). Will follow up results of sigmoid scope. 2. Anemia, at baseline but progressive, likely due to #1. She will be transfused 1 unit of packed red blood cells today. 3. Mantle cell lymphoma. Is now on fourth-line therapy with Velcade, bendamustine and rituximab. Certainly, based on her symptomatology of pelvic pressure, abdominal bloating, and the rectal bleeding, I am concerned about early progression. She clearly has demonstrated refractory disease despite multiple therapeutic attempts. Depending on whether e/o obstruction or not, may need palliative intervention. If internal mass, consider XRT as MCL should be radiosensitive. Of course, would be concerned about perforation if mass sizeable or if external rectal compression. May favor diverting ostomy. PLAN: 1. CT imaging of abdomen today, and will get a GI consultation later today. May need a repeat sigmoidoscopy. 2. History of DVT, PICC line associated, not on anticoagulation at this time. 3. Dysuria, possibly related to this admission. Can check a urinalysis. 4. Shortness of breath, either related to anemia or other. She is on oxygen via nasal cannula. We will continue to follow this patient in the hospital and make recommendations as appropriate. /[id number]/MODL MTDD
[2017-07-03] MEDS ORDERED: LACTULOSE 20 GM/30 ML UDCUP PO SCH (16:00)
--- NOTE | 2017-07-03 17:47 | SOAPPROG ---
[facility] Progress Note Assessment/Plan: Assessment:Plan: full dictated consult to follow has colonic obstruction likely from rectal lymphoma will consult surgery, Dr Ochoa et al colonic stent a possibility but difficult given location 07/03/17 17:40 Objective: Vital Signs Temp Pulse Resp BP Pulse Ox 37.3 C 84 16 110/65 96 07/03/17 15:45 07/03/17 15:45 07/03/17 15:45 07/03/17 15:45 07/03/17 15:45 07/02/17 07/03/17 07/04/17 05:59 05:59 05:59 Intake Total 900 Output Total 100 Balance 800 PT 13.3 SEC (12.0-15.0) 07/03/17 09:15 INR 0.99 (0.83-1.16) 07/03/17 09:15 ICD10 Worksheet Patient Problems: Problems Problem Status Onset Anemia Acute Rectal bleed Acute Abdominal mass Acute Acute cholecystitis Acute Uterine fibroid Acute Vaginal hemorrhage Acute
--- NOTE | 2017-07-03 18:41 | GCON ---
[f rep st] CONSULTATION DATE OF CONSULTATION: 07/03/2017 REQUESTING PHYSICIAN: Bony Mcdonnell. INDICATION FOR CONSULTATION: Abdominal pain, hematochezia, known history of mantle cell lymphoma of the rectum HPI: The patient is a pleasant 67-year-old female whom I know from previous outpatient evaluation. She has a history of mantle cell lymphoma, which has involved her rectum as well as her left upper quadrant and spleen. I did perform a flexible sigmoidoscopy a few months ago, which showed a significant abnormality in her rectum consistent with lymphoma. She had a subsequent flexible sigmoidoscopy within the last month or two, which showed increased size of that. She presented to the hospital with increased abdominal pain and distention and constipation. She has tried multiple laxatives but not been able to move her bowels. Recently, she had been placed on lactulose. She has been getting more gas and distention. A CT scan obtained today did reveal colonic obstruction, likely related to her rectal lymphoma, which has increased in size to 12 cm. She is in the hospital for the above, and I am called to help and evaluate and treat in that regard. PAST MEDICAL HISTORY: Mantle cell lymphoma, osteopenia, hypercholesterolemia. She had a severe reaction to CAR T-cell therapy infusion and was hospitalized at [facility] for about 2 months. PAST SURGICAL HISTORY: Parathyroidectomy, cholecystectomy, uterine embolization , , lymph node biopsies, left carotid artery dissection. ALLERGIES: No known drug allergies. MEDICATIONS: Currently include Tylenol p.r.n., acyclovir 400 mg b.i.d., vitamin D 1000 units daily, dapsone 100 mg daily, Cephulac 20 mg t.i.d., Zofran p.r.n., oxycodone 5 mg daily p.r.n., MiraLAX p.r.n., Compazine p.r.n., senna. SOCIAL HISTORY: Retired software computer specialist. Worked for [employer]. Does not use tobacco. Never used tobacco. Not drinking alcohol at the present time. FAMILY HISTORY: Sister with breast cancer. Grandfather with pancreatic cancer. Mother with breast cancer. REVIEW OF SYSTEMS: A complete review of systems was performed and is negative other than noted in the HPI. PHYSICAL EXAM: GENERAL: Well-developed, well-nourished, chronically ill- appearing, sitting in bed, in no acute distress. VITAL SIGNS: Blood pressure is 110/65, pulse is 84, respirations 16. She is 96% on 4 L. Temperature 37.3. EYES: Anicteric. DEBORAH, EOMI. MOUTH: No lesions. Moist membranes. NECK: Supple. Full range of motion. No JVD. BACK: No spine tenderness. No CVA tenderness. LUNGS: Clear. CARDIAC: S1, S2. Regular rate and rhythm. A 2/6 systolic ejection murmur is appreciated. ABDOMEN: Bowel sounds are normal in frequency. Mildly increased pitch. Abdomen is distended, soft, mildly tender to palpation. No rebound or guarding. EXTREMITIES: No cyanosis, clubbing, or edema. NEUROLOGIC: Cranial nerves intact. SKIN: No stigmata of advanced liver disease. RECTAL: Exam by hospitalist shows cosme blood. LABORATORY DATA: From today, WBC 6.76, hemoglobin 7.5, hematocrit 23.5, platelet count 171. ProTime 13.3, INR 0.99, PTT 25.5. Sodium 137, potassium 4.5, chloride 102, bicarb 25, BUN 20, creatinine 0.7, glucose 98, calcium 9.3, total bilirubin 1.3, AST 17, ALT 24, alkaline phosphatase 98, albumin 3.1, total protein 5.2, lipase 37. Her previous hemoglobins and hematocrits, on June 08, prior to transfusion, hemoglobin 6.8. On June 16, after transfusion, hemoglobin 9.4; June 23, hemoglobin 7.3; June 30, hemoglobin 8.6. PET scan from June 04 shows progression of mantle cell lymphoma evidenced by marked increase in size of infiltrative rectal mass and lymphadenopathy in the low pelvis and new infiltrative mass emanating off the superior aspect of the spleen in the left upper quadrant. There is no evidence of metabolic activity in the neck or chest. ASSESSMENT: 1. Colonic obstruction likely related to aggressive mantle cell lymphoma. 2. Lower gastrointestinal bleed related to rectal mantle cell lymphoma. 3. Anemia related to her ongoing blood loss and chronic illness. RECOMMENDATIONS: 1. I will consult Dr. Ochoa for possible surgical treatment of her obstruction. I have also contacted Dr. Aguilera, my partner, who does colonic stents. I will go to radiology and look at the CT, but he feels that rectal lesions are not the most amenable to stenting and lymphomas are not even amenable as adenocarcinomas. 2. I have contacted Dr. Ribeiro from Oncology and discussed above and she is in agreement with the plan. 3. Discontinue lactulose, Miralax, Senna 4. I am going to change light diet to NPO pending evaluation. She is passing a small amount of flatus at times. 5. Further recommendations to follow the results of the above and clinical course. Thank you for allowing me to participate in this patient's healthcare. Do not hesitate to call me with any questions. /[id number]/MODL MTDD
[2017-07-03] MEDS: ACYCLOVIR 400 MG TAB PO SCH (21:54)
[2017-07-03] MEDS: MELATONIN 3 MG TAB PO SCH (21:54)
[2017-07-03] MEDS: D5W 1/2 NS 1,000 ML IV SCH (21:55)
[2017-07-03] MEDS ORDERED: MELATONIN 3 MG TAB PO ONE (23:11)
[2017-07-03] MEDS: oxyCODONE IR 5 MG TAB PO PRN (23:18)
[2017-07-04 05:46] LABS: PLATELET COUNT 144 10^3/uL (150-400)
[2017-07-04] MEDS: D5W 1/2 NS 1,000 ML IV SCH (06:05)
--- NOTE | 2017-07-04 08:44 | SOAPPROG ---
GUALBERTO Progress Note Assessment/Plan: Assessment: pt with mantle cell lymphoma and rectal mass causing obstruction/ needs colostomy risks and options fully discussed passing flatus but no bms also anemic Plan:loop colostomy 07/04/17 08:42 Objective: Vital Signs Temp Pulse Resp BP Pulse Ox 37.2 C 82 17 130/85 H 96 07/04/17 08:00 07/04/17 08:00 07/04/17 08:00 07/04/17 08:00 07/04/17 08:00 Laboratory Results 07/04/17 05:00 07/04/17 05:00 07/03/17 07/04/17 07/05/17 05:59 05:59 05:59 Intake Total 1350 975 Output Total 700 Balance 650 975 PT 13.3 SEC (12.0-15.0) 07/03/17 09:15 INR 0.99 (0.83-1.16) 07/03/17 09:15 ICD10 Worksheet Patient Problems: Problems Problem Status Onset Anemia Acute Rectal bleed Acute Abdominal mass Acute Acute cholecystitis Acute Uterine fibroid Acute Vaginal hemorrhage Acute
[2017-07-04] MEDS: ACYCLOVIR 400 MG TAB PO SCH ×2 (08:58→23:06)
[2017-07-04] MEDS: DAPSONE 100 MG TAB PO SCH (08:58)
[2017-07-04] MEDS: CHOLECALCIFEROL VIT D3 1,000 UNITS TAB PO SCH (08:59)
--- NOTE | 2017-07-04 09:44 | PDANEPAE ---
ANE History of Present Illness GI CA w/ rectal obstruction here for loop colostomy ANE Past Medical History - Cardiovascular History Hx Hypertension: No Hx Arrhythmias: No Hx Chest Pain: No Hx Coronary Artery / Peripheral Vascular Disease: No Hx CHF / Valvular Disease: No Hx Palpitations: No Cardiovascular History Comment: left carotid dissection - Pulmonary History Hx COPD: No Hx Asthma/Reactive Airway Disease: No Hx Recent Upper Respiratory Infection: No Hx Oxygen in Use at Home: Yes O2 in Use at Home (L/minute): 2 Hx Sleep Apnea: No Sleep Apnea Screening Result - Last Documented: Negative - Neurologic History Hx Cerebrovascular Accident: No Hx Seizures: No Hx Dementia: No - Endocrine History Hx Diabetes: No - Renal History Hx Renal Disorders: No - Liver History Hx Hepatic Disorders: Yes Hepatic History Comment: hemangiomas - Neurological & Psychiatric Hx Hx Neurological and Psychiatric Disorders: No - Cancer History Hx Cancer: Yes Cancer History Comment: lymphoma - Congenital Disorder History Hx Congenital Disorders: No - GI History Hx Gastrointestinal Disorders: No Gastrointestinal History Comment: constipation, lymphoma to rectum - Other Health History Other Health History: none - Chronic Pain History Chronic Pain: Yes (Rfrozen shoulder) - Surgical History Prior Surgeries: 2015 cholecystectomy. parathyroid 2016,2016 biopsy for lymphoma, fibroid embolization ANE Review of Systems Review of Systems: - Exercise capacity Exercise capacity: >=4 METS ANE Patient History - Allergies Allergies/Adverse Reactions: Sulfa (Sulfonamide Antibiotics) Allergy (Mild, Verified 07/03/17 08:12) Rash - Home Medications Home Medications: Herbals/Supplements -Info Only 1 each PO DAILY 04/05/15 [Last Taken 06/09/17 08: 00] Cholecalciferol Vit D3 [Vitamin D3 (*)] 1,000 units PO DAILY 12/15/15 [Last Taken 07/02/17] Acyclovir [Zovirax 400 mg (*)] 400 mg PO BID 03/31/17 [Last Taken 07/02/17] Dapsone [Dapsone 100 mg (*)] 100 mg PO DAILY 03/31/17 [Last Taken 07/02/17] Bendamustine HCl [Bendeka (*)] 64 mg IV .MONTHLY 06/09/17 [Last Taken 06/08/17] Bortezomib [Velcade IV] 1.7 mg IV .WEEKLY 06/09/17 [Last Taken 06/08/17] riTUXimab [Rituxan 500mg (*)] 480 mg IV .MONTHLY 06/09/17 [Last Taken 06/08/17] Lactulose [Lactulose] 15 ml PO DAILY PRN 07/03/17 [Last Taken 07/02/17] Polyethylene Glycol 3350 [Miralax 17 gm (*)] 17 gm PO DAILY PRN 07/03/17 [Last Taken Unknown] Prochlorperazine Maleate [Compazine 10mg (*)] 10 mg PO DAILY PRN 07/03/17 [Last Taken Unknown] Sennosides [Senokot 8.6mg (OTC)] 1 each PO DAILY PRN 07/03/17 [Last Taken Unknown] oxyCODONE IR [Oxycodone Ir (*)] 5 mg PO DAILY PRN 07/03/17 [Last Taken 07/02/17] - NPO status NPO Status: no food or drink >8 hours NPO Since - Liquids (Date): 07/04/17 NPO Since - Liquids (Time): 00:00 NPO Since - Solids (Date): 07/04/17 NPO Since - Solids (Time): 00:00 - Anes Hx Anes Hx: no prior problems - Smoking Hx Smoking Status: Never smoked - Alcohol Use Alcohol Use: None - Family Anes Hx Family Anes Hx: none Family Hx Anesthesia Complications: none ANE Labs/Vital Signs - Labs Result Diagrams: 07/04/17 05:00 07/04/17 05:00 - Vital Signs Blood Pressure: 130/85 Heart Rate: 77 Respiratory Rate: 16 O2 Sat (%): 96 Height: 149.86 cm Weight: 39.916 kg ANE Physical Exam - Airway Neck exam: FROM Mallampati Score: Class 2 Mouth exam: normal dental/mouth exam - Pulmonary Pulmonary: no respiratory distress, clear to auscultation - Cardiovascular Cardiovascular: regular rate and rhythym, no murmur, rub, or gallop - ASA Status ASA Status: III ANE Anesthesia Plan Anesthesia Plan: GA w LMA
[2017-07-04] MEDS ORDERED: MIDAZOLAM 2 MG/2 ML VIAL IVP ONE (09:46)
[2017-07-04] MEDS ORDERED: BUPIVACAINE 0.5% 30 ML SDV ONE (09:47)
[2017-07-04] MEDS ORDERED: fentaNYL 100 MCG/2 ML INJ ONE ×3 (09:55→12:16)
[2017-07-04] MEDS ORDERED: PROPOFOL 200 MG/20 ML VIAL ONE (09:55)
[2017-07-04] MEDS ORDERED: DEXAMETHASONE 4 MG/ML VIAL ONE (09:57)
[2017-07-04] MEDS ORDERED: ONDANSETRON 4 MG/2 ML VIAL ONE ×2 (09:57→12:43)
[2017-07-04] MEDS ORDERED: LIDOCAINE 2% 100 MG/5 ML SYR ONE (09:57)
[2017-07-04] MEDS ORDERED: ROCURONIUM 50 MG/5 ML VIAL ONE (09:57)
[2017-07-04] MEDS ORDERED: MIDAZOLAM 2 MG/2 ML VIAL ONE (10:03)
[2017-07-04] MEDS ORDERED: cefOXitin SODIUM 2 GM in STERILE WATER INJ 21 ML IV ONE (10:16)
--- NOTE | 2017-07-04 10:17 | PDHPUP ---
History & Physical Update H&P update statement: This history and physical update is based on an assessment of the patient which was completed after admission or registration (within 24 hours), but prior to the surgery/procedure.
--- NOTE | 2017-07-04 11:11 | POSTOPPROG ---
Post Op Note Date of Operation: 07/04/17 Surgeon: Lyle Ochoa Anesthesiologist: jonathan Anesthesia: GET(General Endotracheal) Pre-op Diagnosis: rectal obstruction/ lymphoma Post-op Diagnosis: same Indication: obstruction Procedure: sigmoid loop colostomy Findings: impacted stool amd distention Inf/Abcess present in the surg proc area at time of surgery?: Yes Depth: Organ Space EBL: Minimal Complications: 0
[2017-07-04] MEDS ORDERED: ALBUTEROL 3 ML DEYVIAL ONE ×2 (11:21→11:41)
[2017-07-04] MEDS ORDERED: FUROSEMIDE 20 MG/2 ML VIAL ONE (11:30)
[2017-07-04] MEDS ORDERED: HYDROmorphONE/DILAUDID 1 MG/ML INJ IVP PRN (11:34)
[2017-07-04] MEDS ORDERED: ONDANSETRON 4 MG/2 ML VIAL IVP PRN (11:34)
[2017-07-04] MEDS ORDERED: fentaNYL 100 MCG/2 ML INJ IVP PRN (11:34)
[2017-07-04] MEDS ORDERED: NALOXONE HCL 0.4 MG/ML INJ IVP PRN (11:34)
[2017-07-04] MEDS ORDERED: FUROSEMIDE IV ONE (11:35)
[2017-07-04] MEDS ORDERED: NS IV ONE (11:35)
--- NOTE | 2017-07-04 11:38 | POSTANESTH ---
Post Anesthetic Evaluation Cardiovascular Status: Normal, Stable, Similar to Pre-Op Cond Respiratory Status: Tx Decrease in SpO2 (satting in the 80's, redosed sugammadex , lasix 10 mg IV, BiPAP ordered), Requires Airway Assist Level of Consciousness/Mental Status: Can Participate in Eval Pain Control: Adequate, Prn Tx Ordered Nausea/Vomiting Control: Adequate, Prn Tx Ordered Complications Possibly Related to Anesthesia: None Noted
[2017-07-04] MEDS ORDERED: FUROSEMIDE 20 MG/2 ML VIAL IVP ONE (11:45)
--- NOTE | 2017-07-04 12:11 | SOAPPROG ---
SOAP Progress Note Assessment/Plan: Assessment/Plan: 67 yo w mantle cell lymphoma (known rectal mass) who p/w severe rectal bleeding , pelvic pressure, and abdominal bloating CT imaging w obstruction and obvious worsening of dz compared to PET in 05/2017 1. rectal bleeding and obstruction - due to enlarging tumor pt refractory to 1st cycle of velcade, bendamustine, rituxan (multiple prior lines of therapy including CAR-T) pt had diverting ostomy today - d/w Dr Ochoa. Procedure done laparoscopically; was not able to see much but some ascites reasonable to have [facility] consult for palliative XRT to control bleeding - likely too large of radiation field to encompass whole mass (12cm) d/w Dr Elias plans for future systemic therapy 2. abdominal bloating/pelvic pressure - due to #1 3. anemia - due to #1. s/p 1 unit PRBC 4. MCL - refractory needs localized treatment to control symptoms Subjective: in OR this morning for diverting ostomy Objective: Vital Signs Temp Pulse Resp BP Pulse Ox 36.8 C 77 16 130/85 H 96 07/04/17 09:35 07/04/17 09:46 07/04/17 09:46 07/04/17 09:46 07/04/17 09:46 Laboratory Results 07/04/17 05:00 07/04/17 05:00 07/03/17 07/04/17 07/05/17 05:59 05:59 05:59 Intake Total 1350 1350 Output Total 700 300 Balance 650 1050 PT 13.3 SEC (12.0-15.0) 07/03/17 09:15 INR 0.99 (0.83-1.16) 07/03/17 09:15 Pt not physically seen ICD10 Worksheet Patient Problems: Problems Problem Status Onset Anemia Acute Rectal bleed Acute Abdominal mass Acute Acute cholecystitis Acute Uterine fibroid Acute Vaginal hemorrhage Acute
[2017-07-04] MEDS ORDERED: ALBUTEROL 3 ML DEYVIAL IH ONE (12:30)
--- NOTE | 2017-07-04 14:53 | SOAPPROG ---
SORUSSELL Progress Note Assessment/Plan: Assessment:Plan: full dictated consult to follow has colonic obstruction likely from rectal lymphoma will consult surgery, Dr Ochoa et al colonic stent a possibility but difficult given location 07/03/17 17:40 07/04/17 14:47 A/P - Mantle Cell lymphoma with coloninc obstruction pt s/p loop colostomy for colonic obstruction form enlarging rectal mantle cell lymphoma I see no role for GI at present Oncology to determine best tx of rectal mass I will sign off thank you Subjective: CC- colonic obstruction from mantle cell lymphoma now s/p loop colostomy and feeling much better with little residual pain Objective: Vital Signs Temp Pulse Resp BP Pulse Ox 36.9 C 86 21 H 124/79 H 90 L 07/04/17 11:47 07/04/17 13:33 07/04/17 14:00 07/04/17 14:00 07/04/17 14:00 Laboratory Results 07/04/17 05:00 07/04/17 05:00 07/03/17 07/04/17 07/05/17 05:59 05:59 05:59 Intake Total 1350 2450 Output Total 700 750 Balance 650 1700 PT 13.3 SEC (12.0-15.0) 07/03/17 09:15 INR 0.99 (0.83-1.16) 07/03/17 09:15 A+Ox3 S1S2 CTA anteriorly +BS, soft, minimal tenderness on palpation ICD10 Worksheet Patient Problems: Problems Problem Status Onset Anemia Acute Rectal bleed Acute Abdominal mass Acute Acute cholecystitis Acute Uterine fibroid Acute Vaginal hemorrhage Acute
--- NOTE | 2017-07-04 16:08 | HOSPPROG ---
Hospitalist Progress Note Assessment/Plan: # rectal obstruction d/t lymphoma s/p diverting colostomy today - post-op care per gen surg; pain control ok # acute hypoxic resp failure - post-op; will check a CXR tomorrow; consider further w/u if does not improve # mantle cell lymphoma - treated by Dr Elias # lower GIB - d/t lymphoma likely; possibly XRT for treatment # vte ppx - SCDs; hold lovenox with GIB Subjective: s/p diverting colostomy today; c/o abd pain, breathing ok Objective: Vital Signs Temp Pulse Resp BP Pulse Ox 36.9 C 86 21 H 124/79 H 90 L 07/04/17 11:47 07/04/17 13:33 07/04/17 14:00 07/04/17 14:00 07/04/17 14:00 Laboratory Results 07/04/17 05:00 07/04/17 05:00 07/03/17 07/04/17 07/05/17 05:59 05:59 05:59 Intake Total 1350 2450 Output Total 700 750 Balance 650 1700 PT 13.3 SEC (12.0-15.0) 07/03/17 09:15 INR 0.99 (0.83-1.16) 07/03/17 09:15 high risk - Physical Exam Constitutional: uncomfortable Eyes: anicteric sclera Ears, Nose, Mouth, Throat: hearing normal Cardiovascular: No edema Respiratory: respiratory distress (mild) Gastrointestinal: normoactive bowel sounds, other (soft, distended, TTP, ostomy) Genitourinary: No avendano in urethra Skin: warm Neurologic: AAOx3 Psychiatric: not anxious ICD10 Worksheet Patient Problems: Problems Problem Status Onset Vaginal hemorrhage Acute Uterine fibroid Acute Acute cholecystitis Acute Abdominal mass Acute Rectal bleed Acute Anemia Acute
--- NOTE | 2017-07-04 16:48 | ASMTCMCOM ---
CM Note CM Note Notes: 67 year old female admitted for mantle cell lymphoma, with rectal recurrance, constipation and bleeding. Patient is currently in ca tx. She has a hx of L carotid dissection, osteopenia. CM to follow for possible discharge needs. Date Signed: 07/04/2017 04:48 PM Electronically Signed By:Melanie Marquez LCSW
[2017-07-04] MEDS: MELATONIN 3 MG TAB PO SCH (21:04)
[2017-07-05 06:08] LABS: PLATELET COUNT 125 10^3/uL (150-400)
[2017-07-05] MEDS: ACYCLOVIR 400 MG TAB PO SCH ×2 (08:07→21:34)
[2017-07-05] MEDS: CHOLECALCIFEROL VIT D3 1,000 UNITS TAB PO SCH (08:07)
[2017-07-05] MEDS: DAPSONE 100 MG TAB PO SCH (08:07)
[2017-07-05] MEDS: oxyCODONE IR 5 MG TAB PO PRN ×2 (14:18→21:34)
--- NOTE | 2017-07-05 15:45 | SOAPPROG ---
SOAP Progress Note Assessment/Plan: A/P: 67 yo with recurrent MCL. Relapsed (rectal mass) 8 months after CAR-T cell therapy. Progressed on Revlimid/Rituxan and has completed one cycle Bendamustine/Velcade/Rituxan (completed C1 06/30/17). Presented over weekend with increased rectal bleeding. [place] to have colonic obstruction requiring diverting colostomy. * Relapsed MCL: reviewed current CT with PET 06/04/17 with radiology. Definite progression in perisplenic disease, pelvic disease, and new RP nodes. Have d/w possibility of palliative RT with Dr. Donahue for pain/bleeding who will review scans. Not clear that will be feasible or helpful given contiguous nature of rectal mass with pelvic disease. She has previously been treated with bendamustine/Rituxan, ibrutinib, CAR-T cell therapy, Revlimid/Rituxan, Bendamustine/Velcade/Rituxan. Other biologic therapy may be option (idelalisib , obinutuzumab?) or standard chemo (R-HyperCVAD). Discussing with Dr. Pollard at [facility]. * s/p diverting colostomy: recovering well. 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 * Hypogammaglobulinemia: received IVIG 06/18/17. 07/05/17 15:21 Subjective: Significant rectal pain persists. Rectal bleeding has decreased. Tolerating PO. Postop abdominal pain manageable. O: VS reviewed. Gen: petite woman in NAD. Lungs: breathing comfortably. Abd: Left-sided ostomy. Distended (large longstanding uterine fibroid). Laboratory Tests 07/05/17 07/05/17 06:00 06:00 WBC 7.09 Hgb 10.2 L Plt Count 125 L Absolute Seg Neuts 5.46 Absolute Band Neuts 0.64 Sodium 137 Potassium 4.3 Chloride 99 Carbon Dioxide 30 Anion Gap 8 BUN 15 Creatinine 0.7 Estimated GFR > 60 Glucose 98 Calcium 8.7 Total Bilirubin 1.6 H AST 16 ALT 27 Alkaline Phosphatase 81 Albumin 2.6 L Objective: Vital Signs Temp Pulse Resp BP Pulse Ox 37.0 C 82 18 114/68 97 07/05/17 11:52 07/05/17 13:13 07/05/17 11:52 07/05/17 13:13 07/05/17 13:13 Laboratory Results 07/05/17 06:00 07/05/17 06:00 07/04/17 07/05/17 07/06/17 05:59 05:59 05:59 Intake Total 1350 2950 Output Total 700 1400 Balance 650 1550 PT 13.3 SEC (12.0-15.0) 07/03/17 09:15 INR 0.99 (0.83-1.16) 07/03/17 09:15 ICD10 Worksheet Patient Problems: Problems Problem Status Onset Anemia Acute Rectal bleed Acute Abdominal mass Acute Acute cholecystitis Acute Uterine fibroid Acute Vaginal hemorrhage Acute
[2017-07-05] MEDS ORDERED: oxyCODONE IR 5 MG TAB PO PRN (15:46)
[2017-07-05] MEDS ORDERED: FUROSEMIDE 40 MG/4 ML VIAL IVP ONE (17:48)
--- NOTE | 2017-07-05 20:33 | HOSPPROG ---
Hospitalist Progress Note Assessment/Plan: #. Rectal Obstruction - secondary to lymphoma. Patient had colostomy yesterday. She is tolerating oral intake as passing stool into colostomy. #. Rectal Pain - patient states she slept much of the afternoon with oxycodone. I've adjusted lower parameter to 2.5mg. #. Acute on Chronic Hypoxic Resp Failure - patient uses oxygen at night but needing oxygen during the day currently. CXR with possible edema. Will administer dose of Lasix this evening as avendano still in place and attempt to wean further tomorrow. Monitor for fever as infectious process not excluded. #. ABLA - continue to trend hemoglobin daily. Appropriate increase after two units yesterday. #. Elevated bilirubin - mild. New today. Repeat in AM. #. Mantle Cell Lymphoma - Dr. Elias following. Case being discussed with radiation oncology. #. DVT Prophylaxis - SCDs. No lovenox or heparin in light of bleeding and anemia. #. Dispo - she lives at home alone but her son and boyfriend live in town. Will see how she does with PT/OT. I've written nursing order to d/c avendano in AM. We will need to see how does with voiding after surgery. Subjective: F/U rectal obstruction. Patient states she is tolerating a diet without difficulty. She adds that she slept much of the afternoon after taking oxycodone. No acute complaints. She asks about going home and we discussed trying to wean her oxygen off and removing her avendano. Objective: Vital Signs Temp Pulse Resp BP Pulse Ox 37.2 C 99 19 121/74 H 91 L 07/05/17 20:00 07/05/17 20:00 07/05/17 20:00 07/05/17 20:00 07/05/17 20:00 Laboratory Results 07/05/17 06:00 07/05/17 06:00 07/04/17 07/05/17 07/06/17 05:59 05:59 05:59 Intake Total 1350 2950 800 Output Total 700 1400 350 Balance 650 1550 450 PT 13.3 SEC (12.0-15.0) 07/03/17 09:15 INR 0.99 (0.83-1.16) 07/03/17 09:15 - Physical Exam Constitutional: no apparent distress Cardiovascular: regular rate and rhythym, no murmur, rub, or gallop Respiratory: no respiratory distress, no rales or rhonchi, clear to auscultation Gastrointestinal: normoactive bowel sounds, soft, non-tender abdomen (stool in colostomy bag) Genitourinary: avendano in urethra Neurologic: AAOx3 ICD10 Worksheet Patient Problems: Problems Problem Status Onset Anemia Acute Rectal bleed Acute Abdominal mass Acute Acute cholecystitis Acute Uterine fibroid Acute Vaginal hemorrhage Acute
[2017-07-05] MEDS: MELATONIN 3 MG TAB PO SCH (21:34)
[2017-07-06] MEDS: HYDROmorphONE/DILAUDID 1 MG/ML INJ IVP PRN ×3 (05:29→23:10)
[2017-07-06 05:57] LABS: PLATELET COUNT 121 10^3/uL (150-400)
[2017-07-06] MEDS ORDERED: MIDAZOLAM 2 MG/2 ML VIAL ONE (07:04)
--- NOTE | 2017-07-06 11:08 | SOAPPROG ---
SOAP Progress Note Assessment/Plan: Assessment: SOAP Progress Note Assessment/Plan: A/P: 67 yo with recurrent MCL. Relapsed (rectal mass) 8 months after CAR-T cell therapy. Progressed on Revlimid/Rituxan and has completed one cycle Bendamustine/Velcade/Rituxan (completed C1 06/30/17). Presented over weekend with increased rectal bleeding. [place] to have colonic obstruction requiring diverting colostomy. * Relapsed MCL: Definite progression in perisplenic disease, pelvic disease, and new RP nodes. Have d/w possibility of palliative RT with Dr. Donahue for pain/bleeding who will review scans. Not clear that will be feasible or helpful given contiguous nature of rectal mass with pelvic disease. She has previously been treated with bendamustine/Rituxan, ibrutinib, CAR-T cell therapy , Revlimid/Rituxan, Bendamustine/Velcade/Rituxan. Other biologic therapy may be option (idelalisib, obinutuzumab?) or standard chemo (R-HyperCVAD). Discussing with Dr. Pollard at [facility]. * s/p diverting colostomy: recovering well. 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 * Hypogammaglobulinemia: received IVIG 06/18/17. * * Pain-improved control with current regimen. * urinary retention-trial of avendano out today. 07/05/17 15:21 Plan: 07/06/17 11:06 Subjective: eating normally, wants to walk more, eager to have avendano removed. Pain control is good Objective: Vital Signs Temp Pulse Resp BP Pulse Ox 36.6 C 84 18 111/62 91 L 07/06/17 08:41 07/06/17 08:41 07/06/17 08:41 07/06/17 08:41 07/06/17 08:41 Laboratory Results 07/06/17 05:20 07/06/17 05:20 07/05/17 07/06/17 07/07/17 05:59 05:59 05:59 Intake Total 2950 1100 Output Total 1400 1700 Balance 1550 -600 PT 13.3 SEC (12.0-15.0) 07/03/17 09:15 INR 0.99 (0.83-1.16) 07/03/17 09:15 Physical Exam - Physical Exam General Appearance: alert, no apparent distress Respiratory: lungs clear Abdomen: normal bowel sounds, non-tender, soft, other (colostomy) Extremities: No pedal edema ICD10 Worksheet Patient Problems: Problems Problem Status Onset Anemia Acute Rectal bleed Acute Abdominal mass Acute Acute cholecystitis Acute Uterine fibroid Acute Vaginal hemorrhage Acute
[2017-07-06] MEDS: ACYCLOVIR 400 MG TAB PO SCH ×2 (11:40→21:12)
[2017-07-06] MEDS: DAPSONE 100 MG TAB PO SCH (11:40)
[2017-07-06] MEDS: CHOLECALCIFEROL VIT D3 1,000 UNITS TAB PO SCH (11:41)
--- NOTE | 2017-07-06 11:51 | ASMTCMCOM ---
CM Note CM Note Notes: Patient had surgery for rectal obstruction today. PT is still recommending home or home care. D/C plan may change depending on needs. CM will follow. Date Signed: 07/06/2017 11:50 AM Electronically Signed By:Mally Bledsoe LCSW
--- NOTE | 2017-07-06 12:40 | HOSPPROG ---
Hospitalist Progress Note Assessment/Plan: # Rectal Obstruction - secondary to lymphoma- POD #2 from colostomy . She is tolerating oral intake as passing normal stool into colostomy. - cont prn pain meds - con PO intake # Rectal Pain - certainly biggest complaint currently- limiting activity. - cont prn low dose oxycodone - PT/OT # Acute on Chronic Hypoxic Resp Failure - patient uses oxygen at night but needing oxygen during the day currently CXR (personally reviewed and interpreted) with bilateral vascular congestion - received Lasix x 1 yesterday oxygen saturations 91% on 3L - no infectious symptoms - hold additional lasix - encourage IS - PT/OT # ABLA -hgb 9.6 this am - follow daily # Elevated bilirubin - mild. back down to 1.4 this am # Mantle Cell Lymphoma - Dr. Elias following. Case being discussed with radiation oncology. # DVT Prophylaxis - SCDs. No lovenox or heparin in light of bleeding and anemia. # Dispo - she lives at home alone but her son and boyfriend live in town. Will see how she does with PT/OT. I've written nursing order to d/c avendano in AM. We will need to see how does with voiding after surgery. I have discussed the case with RN - we will pull avendano catheter today and hold on additional lasix Subjective: rectal pain Objective: Vital Signs Temp Pulse Resp BP Pulse Ox 37.4 C 81 18 107/57 L 93 07/06/17 12:29 07/06/17 12:29 07/06/17 12:29 07/06/17 12:29 07/06/17 12:29 Laboratory Results 07/06/17 05:20 07/06/17 05:20 07/05/17 07/06/17 07/07/17 05:59 05:59 05:59 Intake Total 2950 1100 Output Total 1400 1700 375 Balance 1550 -600 -375 PT 13.3 SEC (12.0-15.0) 07/03/17 09:15 INR 0.99 (0.83-1.16) 07/03/17 09:15 - Physical Exam Constitutional: no apparent distress Eyes: anicteric sclera Ears, Nose, Mouth, Throat: moist mucous membranes Cardiovascular: regular rate and rhythym Respiratory: no respiratory distress, no rales or rhonchi Gastrointestinal: normoactive bowel sounds Genitourinary: no bladder fullness Skin: warm Musculoskeletal: No asymmetric calves Neurologic: AAOx3 Psychiatric: interacting appropriately Lymph, Heme, Immunologic: no cervical LAD ICD10 Worksheet Patient Problems: Problems Problem Status Onset Anemia Acute Rectal bleed Acute Abdominal mass Acute Acute cholecystitis Acute Uterine fibroid Acute Vaginal hemorrhage Acute
[2017-07-06] MEDS: oxyCODONE IR 5 MG TAB PO PRN (16:54)
[2017-07-06] MEDS: MELATONIN 3 MG TAB PO SCH (21:12)
[2017-07-07] MEDS: HYDROmorphONE/DILAUDID 1 MG/ML INJ IVP PRN ×2 (03:07→22:30)
[2017-07-07] MEDS: oxyCODONE IR 5 MG TAB PO PRN ×2 (03:13→18:07)
[2017-07-07] MEDS: DAPSONE 100 MG TAB PO SCH (08:47)
[2017-07-07] MEDS: CHOLECALCIFEROL VIT D3 1,000 UNITS TAB PO SCH (08:47)
[2017-07-07] MEDS: ACYCLOVIR 400 MG TAB PO SCH ×2 (08:47→21:25)
[2017-07-07] MEDS ORDERED: SODIUM CL NASAL 45 ML BTL EACHNARE PRN (09:01)
[2017-07-07] MEDS: morphINE SR 15 MG TAB PO SCH ×2 (09:38→21:25)
--- NOTE | 2017-07-07 10:11 | GCON ---
[f rep st] CONSULTATION RADIATION ONCOLOGY INPATIENT CONSULTATION NOTE DATE OF CONSULTATION: 07/07/2017 REFERRING PHYSICIAN: Medical Oncology REASON FOR CONSULTATION: Pelvic lymphoma, role for palliative radiation. 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 Dorina Elias at [facility]. She has been treated with several lines of prior systemic therapy and most recently was treated with a cycle of Velcade, bendamustine, and Rituxan on June 30, 2017. She was admitted a few days ago with rectal bleeding and intractable rectal pain and underwent a diverting sigmoid colostomy, which she tolerated well. We are being consulted regarding the role of palliative radiation for her persistent rectal pain. HISTORY OF PRESENT ILLNESS: The patient's history dates back to approximately 2012 when she was evaluated for leukocytosis. A bone marrow biopsy was done that showed mantle cell lymphoma, and scans were consistent with that with a rectal primary. She received an initial cycle of bendamustine and rituximab, but progressed and went on to ibrutinib, which also lead to progression. She was treated with Revlimid and dexamethasone until May 30, when she progressed. She was on immunotherapy with CAR T-cell therapy under the care of Dr. Leobardo Pollard at [facility], in preparation for possible bone marrow transplant. However, she did have progression of disease and most recently was treated with a cycle of Velcade, bendamustine, and Rituxan on June 30, 2017, with a plan for cycle 2 on July 04, 2017. On July 03, 2017, she presented with intractable rectal pain and rectal bleeding. A CT scan of the abdomen and pelvis done showed a very large rectal mass measuring up to 12 cm in diameter, causing bowel obstruction. There is a previously noted left upper quadrant mass invading the spleen with associated left periaortic adenopathy. There are multiple dilated loops of large and small bowel. Moderate fecal material is seen throughout the colon. The mass was displacing the bladder anteriorly and cephalad into the uterus, and the uterus contained a large fibroid. There were no aggressive osseous lesions identified to suggest metastatic disease. Her last imaging prior to this was a PET CT scan performed at [facility] on June 04, 2017. This showed progression of mantle cell lymphoma evidenced by marked increased size of infiltrative rectal mass and lymphadenopathy in the low pelvis, and new infiltrative mass emanating off the superior aspect of the spleen in the left upper quadrant. No evidence of metabolically active lymphadenopathy in the neck or chest. Small pleural effusion resulted in minimal left basilar atelectasis. On July 04, 2017, Dr. Phillip Ochoa performed a sigmoid loop diverting colostomy, which the patient tolerated relatively well. INTERVAL HISTORY: Since being admitted to the hospital and receiving her sigmoid loop diverting colostomy, the patient overall feels a little bit better. Her pain is less and at baseline is 6/10 to 7/10. She is on Dilaudid 0.4 mg IV every 2 hours as needed, as well as oxycodone 10 mg every 4 hours as needed. She has received 3 doses of each since July 05, 2017. This brings her pain from a 6/10 to 7/10 down to about a 2/10. Her pain is worse when she is lying down in bed or sitting and putting pressure on her buttocks or pelvis. The colostomy seems to be working well. She has noticed a little bit of small bleeding per rectum and some tissue that is being passed. Otherwise, she is urinating fairly normally. Her energy is low. She has no aches or pains elsewhere in the body. REVIEW OF SYSTEMS: A complete review of systems was obtained that was negative except as mentioned above. PAST MEDICAL HISTORY: 1. Mantle cell lymphoma as described above. 2. Anemia. 3. Hypogammaglobulinemia. 4. Right upper extremity DVT, not on anticoagulation. 5. Dyspnea with exertion. 6. Constipation. FAMILY HISTORY: No history of malignancy in the family. SOCIAL HISTORY: The patient lives by herself in [place], but does have a boyfriend who comes by occasionally, and she does have a son who lives in the [place] area as well. MEDICATIONS: 1. Tylenol. 2. Acyclovir. 3. Vitamin D. 4. Dapsone. 5. Dilaudid. 6. Melatonin. 7. Ondansetron. 8. Oxycodone. 9. Prochlorperazine. 10. Senna. ALLERGIES: Sulfa. PHYSICAL EXAMINATION: VITAL SIGNS: Blood pressure 112/63, pulse is 83, respiratory rate 18, oxygen sats 94%, temp 36.3. GENERAL: The patient is a very small statured, thin woman who is in no acute distress, but constantly needs to change position due to discomfort in the rectum during my visit with her today. CARDIOVASCULAR: Regular rate and rhythm. Normal S1, S2. No murmurs, rubs, or gallops. LUNGS: Clear to auscultation bilaterally. No wheeze, crackles, or rubs. ABDOMEN: Colostomy in place and normal drainage. Minimal abdominal pain around the colostomy and some slight distention of the belly. RECTAL: Deferred. IMAGING: Please see HPI above. PATHOLOGY: Mantle cell lymphoma of the rectum, stage IV. ASSESSMENT AND PLAN: The patient is a 67-year-old woman who has stage IV mantle cell lymphoma with a primary of the rectum, now presenting with rectal pain and bleeding, status post sigmoid loop diverting colostomy and a recent cycle of Velcade, bendamustine, and Rituxan. I was consulted regarding the role of palliative radiation for her large rectal mass. I had a long discussion with the patient today in her hospital room regarding the diagnosis and management of stage IV mantle cell lymphadenopathy. I have discussed that systemic therapy is obviously the mainstay of treatment, which she is well familiar with, having undergone 4 lines of systemic therapy before with poor tumor control. After the most recent CAR T-cell therapy, this seems to be still chemorefractory, as her latest PET CT scan and CT scan show disease progression in the rectum, as well a perisplenic tumor and some retroperitoneal lymph nodes. The plan moving forward is to continue with the Velcade, bendamustine, and Rituxan. She had a recent cycle and it is a little bit too soon to determine whether she has had response from that cycle of chemotherapy. I discussed the case with Dr. Elias at length, and there was transplant on the list of possible options at one point, but this seems to be moving further down the option list, as she is not having a response from any of her prior lines of chemotherapy. I had a long discussion regarding the rationale, role, and logistics of palliative external beam radiotherapy to the pelvis. I discussed the course of 10 fractions to a total dose of 30 Gy to alleviate her pain and shrink down the mass as much as possible. Once again, I discussed that this is not curative radiation, but designed to alleviate her pain and minimize the use of her narcotics. I discussed the logistics of a radiation planning CT scan simulation , which will be the first steps of giving her radiation, and we can start her course about 1-2 days after. The patient's biggest concern is causing a hole or perforation in the rectum as the tumor recedes from radiation. I discussed that this is certainly a risk, but in general a fairly low risk, or of less concern, as she has had a diverting colostomy and there would not be any leakage of stool in the pelvis if she did have a perforation. She was also concerned with a pain flare after initiating radiating. I did discuss that this happens in about 25% to 30% of patients after the first couple of doses, but then the pain ultimately goes down in intensity, and I would expect about a 75% chance of alleviating her pain, either partially or completely with a course of radiation. We discussed other acute and long-term side effects of radiating in detail. The patient would like to proceed with her 2nd cycle of Velcade, bendamustine, and Rituxan on July 14, 2017, and then try to fit in a course of palliative radiation during her off weeks. I think this is a reasonable plan and I will tentatively schedule her for an outpatient radiating simulation about a week after her chemo infusion so we can get started with planning. I also discussed with the patient that one of the main reasons she is still in the hospital is the requirement for IV pain medications and that that would have to be transitioned to an oral regimen if she were to be discharged. I discussed that palliative radiation may hasten the transition to oral meds and maybe allow for a shorter hospitalization, but once again the patient would like to proceed with chemo and not receive radiation at this point in time. If she does have a change of mind, she will contact me and we can certainly expedite a CAT scan and radiation planning while she is an inpatient. Otherwise, I will communicate my recommendations with Dr. Elias and be ready to give radiation if need be while she is an inpatient. /[id number]/MODL MTDD
--- NOTE | 2017-07-07 12:32 | SOAPPROG ---
SOAP Progress Note Assessment/Plan: Assessment/Plan: 67 Y F c lymphoma and rectal obstruction s/p sigmoid loop colostomy, POD#3. +bowel function. colostomy pink and healthy. bar can be removed 7 days after surgery--can see patient in the office to do this if discharged. S: not much pain around colostomy, but still some pelvic/rectal pain. O: alert, nad no wob abd soft ostomy pink, soft brown stool 07/07/17 12:29 Objective: Vital Signs Temp Pulse Resp BP Pulse Ox 36.9 C 87 18 99/61 L 93 07/07/17 11:20 07/07/17 11:20 07/07/17 11:20 07/07/17 11:20 07/07/17 11:20 Laboratory Results 07/07/17 06:30 07/06/17 05:20 07/06/17 07/07/17 07/08/17 05:59 05:59 05:59 Intake Total 1100 1200 Output Total 1700 775 200 Balance -600 425 -200 PT 13.3 SEC (12.0-15.0) 07/03/17 09:15 INR 0.99 (0.83-1.16) 07/03/17 09:15 ICD10 Worksheet Patient Problems: Problems Problem Status Onset Anemia Acute Rectal bleed Acute Abdominal mass Acute Acute cholecystitis Acute Uterine fibroid Acute Vaginal hemorrhage Acute
--- NOTE | 2017-07-07 12:37 | WOCRNPDOC ---
[facility] Advanced Assessment Note - Colostomy Assessment, Advanced Left Abdomen Colostomy Stoma Colostomy Appliance Intact: Yes Colostomy Appliance Currently in Use: Two Piece Flat Stoma Color: West Orange, Red Stoma Turgor: Moist Stoma Height: Protruding Colostomy Details: Loop Colostomy Comment/Treatment Details: Patient up at bedside with student and instructor. Pouch just drained. Dropped off Day 1 teaching material and asked her to read through it and observe nursing caring for the ostomy. Patient questions answered. Wound care will round again tomorrow to do more hands on teaching with patient. Per BERENICE Mcclure, patient will likely DC home in the next day or two but will have [facility]. Patient verbally consented to have samples sent to her home.
--- NOTE | 2017-07-07 13:07 | GCON ---
[f rep st] CONSULTATION HISTORY OF PRESENT ILLNESS: The patient is a 67-year-old female who is well known to me, who is unde rgoing treatment for lymphoma, which appears to be failing at this time. She has a mantle cell lymph maximo, presents now with a rectal recurrence of the tumor and nearly complete obstruction of her colon. Bowels are distended and constipated, and she is quite uncomfortable. She does have some flatus an d some liquid stool from [id number], but is unable to have a regular bowel movement despite multipl e laxatives. PAST MEDICAL HISTORY: Includes a laparoscopic cholecystectomy, tib-fib fracture with ORIF, parathyro idectomy. She has had a uterine embolization, a left carotid endarterectomy. Has had lymph node bio psies, pericarditis, and a history of the mantle cell lymphoma. ALLERGIES: None. MEDICATIONS: Listed in the chart. PHYSICAL EXAMINATION: GENERAL: Reveals an alert 67-year-old female in no acute distress, afebrile. HEAD and NECK: Reveals no adenopathy, icterus or oral lesions. CHEST: Clear and symmetric. CARDI AC: Regular rhythm, without murmurs. ABDOMEN: Soft, markedly distended, some bowel sounds. There are no palpable hernias and no palpable mass. RECTAL: Exam reveals a large rectal mass. EXTREMITIE S: Benign, with full range of motion, full pulses. IMPRESSION: Rectal obstruction secondary to lymphoma. RECOMMENDATIONS: Loop colostomy, followed by local treatment for the rectum, either chemo or radiati on per Oncology. Risks and options were fully discussed with the patient, and she wishes to proceed. /[id number]/MODL
--- NOTE | 2017-07-07 13:07 | GOP ---
[f rep st] OPERATIVE REPORT DATE OF OPERATION: 07/04/2017 SURGEON: Lyle Ochoa MD NETTING WEAVER: There was no delinquent tax collection assistant. ANESTHESIA: General endotracheal. ANESTHESIOLOGIST: Dr. Sher. PREOPERATIVE DIAGNOSIS: Rectal obstruction with lymphoma and mass. POSTOPERATIVE DIAGNOSIS: Rectal obstruction with lymphoma and mass. PROCEDURE PERFORMED: Sigmoid loop colostomy. FINDINGS: The patient was found to have markedly constipated and moderately distended sigmoid and transverse colon. DESCRIPTION OF PROCEDURE: The patient was taken to the operating room, where she received satisfactory general endotracheal anesthesia by Dr. Sher. She was placed in supine position, prepped and draped in the usual sterile fashion. A left lower quadrant transverse incision was made and dissection carried down to the rectus sheath, which was incised. The rectus muscle fibers were in the direction of the fibers, and the posterior sheath and peritoneum were opened. Abdomen was entered. The colon was quite redundant and partly distended. Orientation was established, and the sigmoid colon was then elevated up through this incision. The skin incision had been ellipsed to make a circular type wound. A tunnel was created through the mesentery of the sigmoid loop, and a bar was placed across this, was a reasonably snug fit. It was elected to proceed with open colostomy. An oblique incision was made in the anterior wall of the sigmoid loop, and the edges were folded back and secured to the skin with interrupted 4-0 Vicryl sutures, with care to avoid entrapping the bar in place. The suture line was then covered with some Ethibond glue, and then dressed. The colostomy appeared to function quite well almost immediately. /[id number]/MODL MTDD
--- NOTE | 2017-07-07 15:13 | HOSPPROG ---
Hospitalist Progress Note Assessment/Plan: # Rectal Obstruction - secondary to lymphoma- POD #3 from colostomy . She is tolerating oral intake as passing normal stool into colostomy. - cont prn pain meds - con PO intake # Rectal Pain - certainly biggest complaint currently- limiting activity. - starting MsContin 15mg BID this am for basal pain control - cont prn low dose oxycodone - PT/OT # Acute on Chronic Hypoxic Resp Failure - patient uses oxygen at night but needing oxygen during the day currently CXR (personally reviewed and interpreted) with bilateral vascular congestion - received Lasix x 1 post -op oxygen saturations 92% on 1L - no infectious symptoms- pt could breath up to 95% on exam this am with deep breathes - hold additional lasix - continue encourage IS - PT/OT # ABLA -hgb 8.6 this am - follow daily # Elevated bilirubin - mild. back down to 1.4 this am # Mantle Cell Lymphoma - Dr. Elias following. Case being discussed with radiation oncology. # DVT Prophylaxis - SCDs. No lovenox or heparin in light of bleeding and anemia-SCD's and ambulating # Dispo - she lives at home alone but her son and boyfriend live in town. Will see how she does with PT/OT. I have discussed the case with Oncology will start long acting pain meds for improved pain control Subjective: tolerating PO - rectal pain remains Objective: Vital Signs Temp Pulse Resp BP Pulse Ox 36.9 C 87 18 99/61 L 93 07/07/17 11:20 07/07/17 11:20 07/07/17 11:20 07/07/17 11:20 07/07/17 11:20 Laboratory Results 07/07/17 06:30 07/06/17 05:20 07/06/17 07/07/17 07/08/17 05:59 05:59 05:59 Intake Total 1100 1200 Output Total 1700 775 200 Balance -600 425 -200 PT 13.3 SEC (12.0-15.0) 07/03/17 09:15 INR 0.99 (0.83-1.16) 07/03/17 09:15 - Physical Exam Constitutional: chronically ill appearing Eyes: anicteric sclera Ears, Nose, Mouth, Throat: moist mucous membranes Cardiovascular: regular rate and rhythym Respiratory: no respiratory distress, no rales or rhonchi, No expiratory wheeze Gastrointestinal: normoactive bowel sounds Genitourinary: no bladder fullness Skin: warm Musculoskeletal: No asymmetric calves Neurologic: AAOx3 Psychiatric: interacting appropriately Lymph, Heme, Immunologic: no cervical LAD ICD10 Worksheet Patient Problems: Problems Problem Status Onset Anemia Acute Rectal bleed Acute Abdominal mass Acute Acute cholecystitis Acute Uterine fibroid Acute Vaginal hemorrhage Acute
--- NOTE | 2017-07-07 15:48 | ASMTCMCOM ---
CM Note CM Note Notes: Spoke w/pt re; dc poc. Recommendation is for a HH RN (new ostomy) and PT. She states she has had homecare in the past but cannot remember the name of the agency. Gave pt homecare list but still does not remember, thinks she has it at home. Will have someone check and let CM know tomorrow. DC Plan: Home care (RN/PT) Date Signed: 07/07/2017 03:47 PM Electronically Signed By:Rena Toney RN
--- NOTE | 2017-07-07 17:15 | SOAPPROG ---
SOAP Progress Note Assessment/Plan: A/P: 67 yo with recurrent MCL. Relapsed (rectal mass) 8 months after CAR-T cell therapy. Progressed on Revlimid/Rituxan and has completed one cycle Bendamustine/Velcade/Rituxan (completed C1 06/30/17). Presented last weekend with increased rectal bleeding, increased abdominal distension, and impending bowel obstruction. * Relapsed MCL: reviewed current CT with PET 06/04/17 with radiology. Definite progression in perisplenic disease, pelvic disease, and new RP nodes. She has previously been treated with bendamustine/Rituxan, ibrutinib, CAR-T cell therapy, Revlimid/Rituxan, Bendamustine/Velcade/Rituxan. I discussed her case with Dr. Pollard today. Unfortunately, she is no longer a candidate for non -myeloablative alloSCT which was being considered at [facility]. Her disease is too extensive, aggressive, and has not been demonstrated to be chemo-sensitive. Dr. Donahue feels she is a candidate for palliative pelvic RT, although that would be expected to result in significant marrow suppression given the field. Erica and discussed at length that her disease is not curable, is aggressive, and has not responded to two recent chemo regimens. We discussed options of palliative RT and further systemic chemotherapy. She wants to continue with treatment. We discussed Rituxan-gemcitabine/dex/cisplatin (R-GDP), which has demonstrated activity in relapsed/refractory lymphomas (most of the data in DLBCL). We discussed side effects, including but not limited to, significant myelosuppression, need for transfusions, and infections. If we can get her pain reasonably controlled, I recommend trial of chemo first, reserving RT if needed. I am concerned that if she has RT first, resultant myelosuppression may prohibit future chemo. Discussed with Dr. Donahue. - anticipate chemo following post-op recovery, will discuss timing with Dr. Ochoa * s/p diverting colostomy: recovering well. * Pain: due to pelvic/rectal involvement. Improved after MS Contin this morning. Hopefully that will be effective. 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 No indication for transfusion. * Hypogammaglobulinemia: received IVIG 06/18/17. * Advance Care Planning: Erica and I discussed advanced directives and her goals. She will consider code status further. Her son, Arina, is MDPOA. We will continue conversations. I spent over 90 minutes, the majority in counseling and coordinating of care. 07/07/17 17:17 Subjective: Still with significant pelvic/rectal pressure and pain but improved following MS Contin this morning. O: VS reviewed. Gen: NAD, A&O. Lungs: breathing comfortably. Abd: distended (longstanding, partially due to uterine fibroid), functioning RLQ ostomy. Laboratory Tests 07/06/17 07/06/17 07/07/17 05:20 05:20 06:30 WBC 4.81 Hgb 8.6 L Plt Count 107 L BUN 22 Creatinine 0.8 Iron 27.0 L TIBC 181 L Iron Saturation 15 L Ferritin 1800.0 H Total Bilirubin 1.4 AST 15 ALT 23 Alkaline Phosphatase 82 Objective: Vital Signs Temp Pulse Resp BP Pulse Ox 37.3 C 88 15 102/61 91 L 07/07/17 15:13 07/07/17 15:13 07/07/17 15:13 07/07/17 15:13 07/07/17 15:13 Laboratory Results 07/07/17 06:30 07/06/17 05:20 07/06/17 07/07/17 07/08/17 05:59 05:59 05:59 Intake Total 1100 1200 Output Total 1700 775 400 Balance -600 425 -400 PT 13.3 SEC (12.0-15.0) 07/03/17 09:15 INR 0.99 (0.83-1.16) 07/03/17 09:15 ICD10 Worksheet Patient Problems: Problems Problem Status Onset Anemia Acute Rectal bleed Acute Abdominal mass Acute Acute cholecystitis Acute Uterine fibroid Acute Vaginal hemorrhage Acute
[2017-07-07] MEDS: MELATONIN 3 MG TAB PO SCH (21:24)
[2017-07-08] MEDS: DAPSONE 100 MG TAB PO SCH (09:03)
[2017-07-08] MEDS: morphINE SR 15 MG TAB PO SCH ×3 (09:03→21:20)
[2017-07-08] MEDS: ACYCLOVIR 400 MG TAB PO SCH ×2 (09:03→21:20)
[2017-07-08] MEDS: CHOLECALCIFEROL VIT D3 1,000 UNITS TAB PO SCH (09:03)
[2017-07-08] MEDS ORDERED: HYDROmorphONE/DILAUDID 2 MG TAB PO PRN (10:06)
--- NOTE | 2017-07-08 11:34 | WOCRNPDOC ---
WOCRN Advanced Assessment Note - Colostomy Assessment, Advanced Left Abdomen Colostomy Stoma Colostomy Appliance Intact: No (stool coming from top of wound pouch opening) Colostomy Appliance Currently in Use: One Piece Flat (wound drainage pouch placed in OR, not colostomy pouch) Stoma Color: Red Stoma Turgor: Moist, Bridge Present Stoma Shape: Round (57mm in diameter) Stoma Height: Protruding Mucocutaneus Junction: Intact Colostomy Effluent: Fecal, Thick Colostomy Details: Loop Peristomal Skin: Intact Colostomy Comment/Treatment Details: Wound drainage pouch from OR placed after surgery, most likely because standard ostomy appliances in hospital are not large enough to accommodate this stoma. The wound pouch has a lid which can be opened, and it is not odor-proof. This appliance was removed, and patient's stoma and peristomal skin were cleansed w/ warm water and wash cloth. Large loop stoma (57mm) w/ intact bridge, moist, red, protruding. No peristomal skin breakdown observed. Applied 1-piece, drainable, cut-to-fit appliance from our ostomy specialty supplies (Convatec 4"), ensuring barrier was under the bridge and right up to mucocutaneous junction. Patient teaching today included how to measure stoma, how to clean peristomal skin, when to empty pouch, and when to change appliance. Patient was alert and asked specific questions r/t care. Will follow up with her again tomorrow for additional teaching and supply ordering. Additional supplies sent down to 1N in the event that appliance requires changing overnight. Report given to explosives operator Kelly.
--- NOTE | 2017-07-08 15:49 | HOSPPROG ---
Hospitalist Progress Note Assessment/Plan: # Rectal Obstruction - secondary to lymphoma- POD #4 from colostomy. She is tolerating oral intake as passing normal stool into colostomy. - cont prn pain meds - con PO intake # Rectal Pain - certainly biggest complaint currently- limiting activity. Started MsContin 15mg BID - with improved pain control - pt did have pain at 5pm which was severe between doses - increase MsContin to TID - change oxycodone to PO dilaudid - cont PT/OT for dc planning # Acute on Chronic Hypoxic Resp Failure - patient uses oxygen at night but needing oxygen during the day currently CXR (personally reviewed and interpreted) with bilateral vascular congestion - received Lasix x 1 post -op oxygen saturations 92% on 1L - no infectious symptoms- pt can breath up to mid 90's with deep breaths - hold additional lasix - continue encourage IS - PT/OT # ABLA -hgb 8.3 this am - follow daily # Elevated bilirubin - mild. back down to 1.4 this am # Mantle Cell Lymphoma - Dr. Elias following. Case being discussed with radiation oncology. # DVT Prophylaxis - SCDs. No lovenox or heparin in light of bleeding and anemia-SCD's and ambulating # Dispo - she lives at home alone but her son and boyfriend live in town. Will see how she does with PT/OT. I have discussed the case with PharmD - increasing to TID today for improved basal pain control Subjective: pain improved Objective: Vital Signs Temp Pulse Resp BP Pulse Ox 36.7 C 90 17 114/64 90 L 07/08/17 15:16 07/08/17 15:16 07/08/17 15:16 07/08/17 15:16 07/08/17 15:16 Laboratory Results 07/08/17 04:50 07/06/17 05:20 07/07/17 07/08/17 07/09/17 05:59 05:59 05:59 Intake Total 1200 350 500 Output Total 775 915 400 Balance 425 -565 100 PT 13.3 SEC (12.0-15.0) 07/03/17 09:15 INR 0.99 (0.83-1.16) 07/03/17 09:15 - Physical Exam Constitutional: chronically ill appearing Eyes: anicteric sclera Ears, Nose, Mouth, Throat: moist mucous membranes Cardiovascular: regular rate and rhythym Respiratory: no respiratory distress, no rales or rhonchi Gastrointestinal: normoactive bowel sounds, tenderness, No guarding, No rebound Genitourinary: no bladder fullness Skin: warm Musculoskeletal: No asymmetric calves Neurologic: AAOx3 Psychiatric: interacting appropriately Lymph, Heme, Immunologic: no cervical LAD ICD10 Worksheet Patient Problems: Problems Problem Status Onset Anemia Acute Rectal bleed Acute Abdominal mass Acute Acute cholecystitis Acute Uterine fibroid Acute Vaginal hemorrhage Acute
[2017-07-08] MEDS: MELATONIN 3 MG TAB PO SCH (21:20)
--- NOTE | 2017-07-08 21:23 | SOAPPROG ---
SOAP Progress Note Assessment/Plan: Assessment: SOAP Progress Note Assessment/Plan: A/P: 67 yo with recurrent MCL. Relapsed (rectal mass) 8 months after CAR-T cell therapy. Progressed on Revlimid/Rituxan and has completed one cycle Bendamustine/Velcade/Rituxan (completed C1 06/30/17). Presented over weekend with increased rectal bleeding. [place] to have colonic obstruction requiring diverting colostomy. * Relapsed MCL: Dr. gordillo discussing palliative chemo with gem/cis. * s/p diverting colostomy: recovering well. 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 * Hypogammaglobulinemia: received IVIG 06/18/17. * * Pain-improved control with current regimen. 07/05/17 15:21 Plan: 07/06/17 11:06 07/08/17 21:21 Subjective: no complaints. pain well controlled. eating well Objective: Vital Signs Temp Pulse Resp BP Pulse Ox 37.6 C 85 12 110/63 92 07/08/17 20:00 07/08/17 20:00 07/08/17 20:00 07/08/17 20:00 07/08/17 20:00 Laboratory Results 07/08/17 04:50 07/06/17 05:20 07/07/17 07/08/17 07/09/17 05:59 05:59 05:59 Intake Total 5993 043 9387 Output Total 775 915 875 Balance 425 -565 425 PT 13.3 SEC (12.0-15.0) 07/03/17 09:15 INR 0.99 (0.83-1.16) 07/03/17 09:15 Physical Exam - Physical Exam General Appearance: alert, no apparent distress Respiratory: lungs clear Abdomen: other (colostomy, palpable mass) Neuro/Psych: alert, normal mood/affect, oriented x 3 ICD10 Worksheet Patient Problems: Problems Problem Status Onset Anemia Acute Rectal bleed Acute Abdominal mass Acute Acute cholecystitis Acute Uterine fibroid Acute Vaginal hemorrhage Acute
[2017-07-09 06:27] LABS: PLATELET COUNT 103 10^3/uL (150-400)
[2017-07-09] MEDS: DAPSONE 100 MG TAB PO SCH (09:31)
[2017-07-09] MEDS: morphINE SR 15 MG TAB PO SCH ×3 (09:32→21:42)
[2017-07-09] MEDS: ACYCLOVIR 400 MG TAB PO SCH ×2 (09:32→21:43)
[2017-07-09] MEDS: CHOLECALCIFEROL VIT D3 1,000 UNITS TAB PO SCH (09:32)
--- NOTE | 2017-07-09 14:26 | SOAPPROG ---
SOAP Progress Note Assessment/Plan: A/P: 67 yo with recurrent MCL. Relapsed (rectal mass) 8 months after CAR-T cell therapy. Progressed on Revlimid/Rituxan and has completed one cycle Bendamustine/Velcade/Rituxan (completed C1 06/30/17). Presented last weekend with increased rectal bleeding, increased abdominal distension, and impending bowel obstruction. * Relapsed MCL: reviewed current CT with PET 06/04/17 with radiology. Definite progression in perisplenic disease, pelvic disease, and new RP nodes. She has previously been treated with bendamustine/Rituxan, ibrutinib, CAR-T cell therapy, Revlimid/Rituxan, Bendamustine/Velcade/Rituxan. Unfortunately, she is no longer a candidate for non-myeloablative alloSCT which was being considered at [facility]. Her disease is too extensive, aggressive, and has not been demonstrated to be chemo-sensitive. She definitely wants to continue with treatment. Palliative RT is an option and Dr. Donahue has seen her. I am concerned that if she has RT first, resultant myelosuppression may prohibit future chemo. We again discussed Rituxan-gemcitabine/dex/cisplatin (R-GDP), which has demonstrated activity in relapsed/refractory lymphomas (most of the data in DLBCL). I recommend trial first of chemo first, reserving RT if needed. She is also being screened for a Phase I clinical trial at [facility] ( [employer] study, [id number]). She would have to wait 28 days from surgery to start the trial. I think she needs tx before then. - anticipate chemo (GDP) next week, Dr. Ochoa aware and comfortable with that. - I asked her to resume allopurinol when she goes home. * s/p diverting colostomy: recovering well. * Pain: due to pelvic/rectal involvement. Improved with MS Contin. 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 No indication for transfusion. * Hypogammaglobulinemia: received IVIG 06/18/17. I spent at least 45 minutes, the majority in counseling and coordinating of care. Anticipate d/c over weekend. She has CC appt 07/09/17 14:21 Subjective: Pain management is improving and she does not feel increasing meds is necessary. Her significatn other, Long, is present. O: VS reviewed. Gen: pleasant, NAD, A&O. Able to sit comfortably. Lungs: breathing comfortably. Abd: distended (longstanding, large uterine fibroid). Laboratory Tests 07/09/17 07/09/17 06:00 06:00 WBC 5.40 Hgb 8.0 L Plt Count 103 L Sodium 135 Potassium 4.6 Chloride 99 Carbon Dioxide 28 Anion Gap 8 BUN 17 Creatinine 0.7 Glucose 96 Objective: Vital Signs Temp Pulse Resp BP Pulse Ox 36.8 C 89 17 104/50 L 91 L 07/09/17 12:18 07/09/17 08:33 07/09/17 12:18 07/09/17 08:33 07/09/17 08:33 Laboratory Results 07/09/17 06:00 07/09/17 06:00 07/08/17 07/09/17 07/10/17 05:59 05:59 05:59 Intake Total 350 1540 Output Total 915 1475 Balance -565 65 PT 13.3 SEC (12.0-15.0) 07/03/17 09:15 INR 0.99 (0.83-1.16) 07/03/17 09:15 ICD10 Worksheet Patient Problems: Problems Problem Status Onset Anemia Acute Rectal bleed Acute Abdominal mass Acute Acute cholecystitis Acute Uterine fibroid Acute Vaginal hemorrhage Acute
--- NOTE | 2017-07-09 18:09 | WOCRNPDOC ---
DIANECRJasiel Advanced Assessment Note - Colostomy Assessment, Advanced Left Abdomen Colostomy Stoma Colostomy Appliance Currently in Use: One Piece Flat, 4 Inch, Cut to Fit Stoma Color: Red Stoma Turgor: Moist Stoma Shape: Round Stoma Height: Protruding Mucocutaneus Junction: Intact Colostomy Effluent: Fecal, Thick Colostomy Details: Loop Peristomal Skin: Intact Colostomy Comment/Treatment Details: Full appliance change aand teaching at the bedside today. 4-inch appliance placed yesterday intact w/ no apparent leaks. Anticipate stoma reducing in size over the next few weeks; in addition, patient will likely have bridge removed next week, which will allow for a smaller pouching system. Initiated supply order through [employer] today, which included the information about which products they should send the patient. Notes and instructions in DC planning for either patient or home health agency to call when patient is home to ship the order. In the interim, patient supplied w/ 8, 1-piece pouching systems to take home.
--- NOTE | 2017-07-09 19:13 | HOSPPROG ---
Hospitalist Progress Note Assessment/Plan: Assessment: 67 yo F p/w acute rectal obstruction in setting of mantel cell lymphoma Plan: # Rectal Obstruction - secondary to lymphoma- POD #5 from diverting colostomy. She is tolerating oral intake as passing normal stool into colostomy. - cont prn pain meds - cont PO intake # Rectal Pain - less limiting activity of activity today - cont MsContin 15mg TID - changed oxycodone to PO dilaudid - cont PT/OT for dc planning # Acute on Chronic Hypoxic Resp Failure - evidenced by SpO2 74% on room air, RR 30+, requiring up to 15LPM high flow o2 w/ shortness of breath, 2/2 acute suspected diastolic CHF and NOT related to her surgery - cont on 3 LPM o2, likely require at discharge # Suspected acute diastolic CHF exacerbation. New problem, to this provider, further w/u indicated. CXR w/ bilat pulm edema and LLL pleural effusion, patient hypervolemic and requiring IV lasix - monitor I/O/weights - repeat CXR in AM, get Echo (none in outside records, reviewed) - give additional dose of lasix in AM (if BP permits) # ABLA -Hgb 8, iron studies demonstrate an iron deficient component which is likely 2/2 chronic inflammatory disease of MCL - d/w patient iron IV tomorrow AM, she will consider - repeat Hgb in AM # Mantle Cell Lymphoma - Dr. Elias following, plan reviewed in her note - plan for chemo prior to XRT PPx. SCDs Diet. Regular Code. Full Dispo. ADD 07/10, pending stabilization of above Subjective: patient working w/ PT, able to do stairs Objective: Vital Signs Temp Pulse Resp BP Pulse Ox 37.5 C 88 18 102/55 L 92 07/09/17 17:55 07/09/17 16:08 07/09/17 16:08 07/09/17 16:08 07/09/17 16:08 Laboratory Results 07/09/17 06:00 07/09/17 06:00 07/08/17 07/09/17 07/10/17 05:59 05:59 05:59 Intake Total 350 1540 Output Total 915 1475 Balance -565 65 PT 13.3 SEC (12.0-15.0) 07/03/17 09:15 INR 0.99 (0.83-1.16) 07/03/17 09:15 - Physical Exam Constitutional: no apparent distress, appears nourished, not in pain, No uncomfortable Cardiovascular: regular rate and rhythym, no murmur, rub, or gallop, No tachycardia, No edema Respiratory: reduced air movement (left base), inspiratory crackles (bilat bases ), No expiratory wheeze, No bronchial breath sounds, No respiratory distress Gastrointestinal: normoactive bowel sounds, distension (mild), other (left side ostomy), No tenderness Neurologic: AAOx3, No weakness, No facial droop Psychiatric: interacting appropriately, not anxious, not encephalopathic, thought process linear ICD10 Worksheet Patient Problems: Problems Problem Status Onset Anemia Acute Rectal bleed Acute Abdominal mass Acute Acute cholecystitis Acute Uterine fibroid Acute Vaginal hemorrhage Acute
[2017-07-09] MEDS: MELATONIN 3 MG TAB PO SCH (21:42)
[2017-07-10 05:10] LABS: PLATELET COUNT 113 10^3/uL (150-400)
[2017-07-10] MEDS: ACYCLOVIR 400 MG TAB PO SCH ×2 (10:42→21:07)
[2017-07-10] MEDS: CHOLECALCIFEROL VIT D3 1,000 UNITS TAB PO SCH (10:42)
[2017-07-10] MEDS: morphINE SR 15 MG TAB PO SCH ×3 (10:42→21:07)
[2017-07-10] MEDS: DAPSONE 100 MG TAB PO SCH (10:43)
--- NOTE | 2017-07-10 11:06 | SOAPPROG ---
SOAP Progress Note Assessment/Plan: Assessment/Plan: 67 Y F c lymphoma and rectal obstruction s/p sigmoid loop colostomy, POD#6. Removed colostomy bar. Ok to use other appliance now. Fever overnight. CXR reviewed. Check UA. S: eating, stooling, no n/v. rectal/pelvic pain better. O: alert, smiling, nad no wob abd soft, nt ostomy pink, +soft formed brown stool. 07/10/17 11:04 Objective: Vital Signs Temp Pulse Resp BP Pulse Ox 37.3 C 93 18 98/61 L 91 L 07/10/17 08:41 07/10/17 08:41 07/10/17 08:41 07/10/17 08:41 07/10/17 08:41 Laboratory Results 07/10/17 04:58 07/10/17 04:58 07/09/17 07/10/17 07/11/17 05:59 05:59 05:59 Intake Total 1540 400 Output Total 1475 1300 Balance 65 -900 PT 13.3 SEC (12.0-15.0) 07/03/17 09:15 INR 0.99 (0.83-1.16) 07/03/17 09:15 ICD10 Worksheet Patient Problems: Problems Problem Status Onset Anemia Acute Rectal bleed Acute Abdominal mass Acute Acute cholecystitis Acute Uterine fibroid Acute Vaginal hemorrhage Acute
--- NOTE | 2017-07-10 11:17 | ECHO ---
[email or web address] [address] [address] Main: [phone] Fax: Transthoracic Echocardiogram Name: JIGAR MICHAEL MR#: [id number] Study Date: 07/10/2017 Study Time: 09:00 AM Date of : 1950 Age: 67 year(s) Height: 149.9 cm (59 in.) Weight: 67.59 kg (149 lb.) BSA: 1.63 m2 Gender: Female Examination: Echo Indication: eval EF, CHF Image Quality: Adequate Contrast: Requested by: Earl Solano BP: 98 mmHg/61 mmHg Heart Rate: 80 bpm Rhythm: Normal sinus rhythm Indication: eval EF, CHF Procedure Staff Ship'S Captain: Dania Demarco [facility] Reading Physician: Deidra Metz Requesting Provider: Conclusions: Normal size left ventricle. No LV hypertrophy. Normal global systolic LV function. EF is 76 %. No regional wall motion abnormality. Normal diastolic LV function. Normal size right ventricle. Normal RV function. The left atrium is normal in size. Trivial tricuspid valve regurgitation. Pulmonary artery pressure is not obtained due to inadequate TR jet. Compared with [facility] echocardiogram dated 05/13/2017 the degree of mitral and tricuspid regurgitation has improved. Thaddeus is currently not visible in the right atrium. Biventricular systolic function remains normal. Measurements: Chambers Valvular Assessment AV/MV Valvular Assessment TV/PV Normal Normal Normal Name Value Range Name Value Range Name Value Range Ao Prisca (MM): 3.3 cm (2.2 cm-3.7 AV Vmax: 1.62 m/s (1 m/s-1.7 PV Vmax: 0.81 m/s (0.6 m/s-0.9 cm) m/s) m/s) IVSd (2D): 0.8 cm (0.6 cm-1.1 AV maxP mmHg ( - ) PV PGmax: 3 mmHg ( - ) cm) LVOT Vmax: 1.15 m/s (0.7 m/s-1.1 LVDd (2D): 3.4 cm (3.9 cm-5.3 m/s) cm) MV E Vmax: 0.83 m/s ( - ) LVDs (2D): 2.0 cm (2.1 cm-4 MV A Vmax: 0.62 m/s ( - ) cm) MV E/A: 1.34 ( - ) LVPWd (2D): 0.7 cm ( - ) LVEF (BP): 76 % (>=55 %) Patient: JIGAR MICHAEL Study Date: 07/10/2017 Page 1 of 2 09:00 AM RVDd(2D): 2.6 cm (1.9 cm-3.8 cmmm) Continued Measurements: Chambers Valvular Assessment AV/MV Name Value Name Value LADs Lon.1 cm MV DecTime: 243 m/s LA Area: 12.4 cm2 MV E/E' Septal: 9.30 LA Volume: 24 ml MV E/E' Lateral: 7.20 LA Volume Index: 14.7 ml/m2 TAPSE: 1.9 cm RA Area: 14.3 cm2 Findings: Left Ventricle: Normal size left ventricle. No LV hypertrophy. Normal global systolic LV function. EF is 76 %. No regional wall motion abnormality. Normal diastolic LV function. Right Ventricle: Normal size right ventricle. Normal RV function. Left Atrium: The left atrium is normal in size. Right Atrium: The right atrium is normal in size. Mitral Valve: The mitral valve is normal in appearance and function. Trivial mitral valve regurgitation. No mitral stenosis is present. Aortic Valve: The aortic valve is normal in appearance and function. There is no significant aortic valve regurgitation. No aortic valve stenosis is present. Tricuspid Valve: The tricuspid valve is normal in appearance and function. Trivial tricuspid valve regurgitation. Pulmonary artery pressure is not obtained due to inadequate TR jet. Pulmonic Valve: Pulmonary valve not well visualized. Aorta: Ascending aorta not well visualized.. The aorta is normal. Normal size aortic root measuring 3.3 cm. IVC: The IVC is normal sized. Pericardium: No pericardial effusion. (No Signature Object) Patient: JIGAR MICHAEL Study Date: 07/10/2017 Page 2 of 2 09:00 AM [id number]
[2017-07-10] MEDS ORDERED: SENNOSIDES 1 TAB PO ONE (12:37)
[2017-07-10] MEDS ORDERED: MAGNESIUM HYDROXIDE 30 ML UDCUP PO PRN (12:38)
[2017-07-10] MEDS ORDERED: POLYETHYLENE GLYCOL 3350 17 GM PKT PO PRN (12:38)
[2017-07-10] MEDS ORDERED: METOCLOPRAMIDE 10 MG TAB PO PRN (12:38)
[2017-07-10] MEDS ORDERED: LACTULOSE 20 GM/30 ML UDCUP PO PRN (12:38)
[2017-07-10] MEDS ORDERED: BISACODYL 10 MG SUPP PR PRN (12:38)
[2017-07-10] MEDS ORDERED: METOCLOPRAMIDE 10 MG/2 ML VIAL IVP PRN (12:38)
[2017-07-10] MEDS: ACETAMINOPHEN 325 MG TAB PO PRN (17:20)
--- NOTE | 2017-07-10 17:41 | HOSPPROG ---
Hospitalist Progress Note Assessment/Plan: Assessment: 67 yo F p/w acute rectal obstruction in setting of mantel cell lymphoma Plan: # Rectal Obstruction - secondary to lymphoma- POD #6 from diverting colostomy. She is tolerating oral intake as passing normal stool into colostomy. - cont prn pain meds - cont PO intake - feels bloated, abd moderately distended, add scheduled senokot and PRN laxatives, encourage BM # Fever - acute, new problem, further w/u indicated. Unclear etiology, potentially 2/2 atelectasis vs. malignancy, but r/o infxn - get UA and BCx - CXR w/o focal infiltrate, improving from prior (personally interpreted) - hold on Abx - only PRN tylenol, monitor fever curve - if above neg, rec surg eval of rectum vs. abd CT # Rectal Pain - less limiting activity today - cont MsContin 15mg TID, likely contributing to some AM fatigue - changed oxycodone to PO dilaudid - cont PT/OT for dc planning # Acute on Chronic Hypoxic Resp Failure - evidenced by SpO2 74% on room air, RR 30+, requiring up to 15LPM high flow o2 w/ shortness of breath, 2/2 acute suspected diastolic CHF and NOT related to her surgery - cont on 3 LPM o2, likely require at discharge # Acute diastolic CHF exacerbation. CXR w/ bilat pulm edema and LLL pleural effusion, patient hypervolemic and required IV lasix - monitor I/O/weights - Echo w/ normal EF - CXR improving, ongoing 2.5L requirement # Atelectasis - acute, IS # ABLA -Hgb 7.6, iron studies demonstrate an iron deficient component which is likely 2/2 chronic inflammatory disease of MCL - repeat Hgb in AM # Mantle Cell Lymphoma - d/w Dr. Castillo, we discussed holding pt for infxn monitoring above - plan for chemo prior to XRT PPx. SCDs Diet. Regular Code. Full Dispo. ADD 07/11, pending stabilization of above Subjective: fatigued this AM, abd feels more bloated Objective: Vital Signs Temp Pulse Resp BP Pulse Ox 38.3 C 98 18 116/60 88 L 07/10/17 17:08 07/10/17 17:08 07/10/17 17:08 07/10/17 17:08 07/10/17 17:08 Laboratory Results 07/10/17 04:58 07/10/17 04:58 07/09/17 07/10/17 07/11/17 05:59 05:59 05:59 Intake Total 1540 400 Output Total 1475 1300 Balance 65 -900 PT 13.3 SEC (12.0-15.0) 07/03/17 09:15 INR 0.99 (0.83-1.16) 07/03/17 09:15 - Physical Exam Constitutional: no apparent distress, not in pain, chronically ill appearing, uncomfortable Cardiovascular: regular rate and rhythym, no murmur, rub, or gallop, No edema Respiratory: reduced air movement (left base), inspiratory crackles (mid post segs), No expiratory wheeze, No bronchial breath sounds, No respiratory distress Gastrointestinal: distension (moderate), other (left side ostomy in place), No normoactive bowel sounds, No tenderness, No guarding Skin: other (no erythema around ostomy) Neurologic: AAOx3, sensation intact bilaterally, No weakness Psychiatric: interacting appropriately, not anxious, not encephalopathic, thought process linear ICD10 Worksheet Patient Problems: Problems Problem Status Onset Vaginal hemorrhage Acute Uterine fibroid Acute Acute cholecystitis Acute Abdominal mass Acute Rectal bleed Acute Anemia Acute
[2017-07-10] MEDS: SENNOSIDES 1 TAB PO SCH (21:07)
[2017-07-11] MEDS: MELATONIN 3 MG TAB PO SCH ×2 (00:43→21:01)
[2017-07-11] MEDS: ACETAMINOPHEN 325 MG TAB PO PRN ×2 (05:55→17:09)
[2017-07-11 06:35] LABS: PLATELET COUNT 114 10^3/uL (150-400)
[2017-07-11] MEDS: ACYCLOVIR 400 MG TAB PO SCH ×2 (09:44→21:00)
[2017-07-11] MEDS: DAPSONE 100 MG TAB PO SCH (09:44)
[2017-07-11] MEDS: CHOLECALCIFEROL VIT D3 1,000 UNITS TAB PO SCH (09:45)
[2017-07-11] MEDS: SENNOSIDES 1 TAB PO SCH ×2 (09:47→21:01)
[2017-07-11] MEDS: morphINE SR 15 MG TAB PO SCH ×3 (10:07→21:01)
[2017-07-11] MEDS ORDERED: FUROSEMIDE 20 MG/2 ML VIAL IVP ONE ×2 (12:00→17:15)
--- NOTE | 2017-07-11 12:51 | SOAPPROG ---
SOAP Progress Note Assessment/Plan: Assessment/Plan: 67 Y F c lymphoma and rectal obstruction s/p sigmoid loop colostomy, POD#7. Looking remarkably well despite fevers. UA not normal. CXR ok. May need tx for UTI. Indirectly d/w'ed medicine--query fever of malignancy/tumor necrosis? IM to d/w onc, consider UTI tx. Asked colostomy/wound nurse to revisit patient now that double barrel bar removed and could tolerate two piece ostomy appliance. S: eating, stooling, no n/v. rectal/pelvic pain better. O: alert, smiling, nad no wob abd soft, nt ostomy pink, +soft formed brown stool. 07/11/17 12:44 Objective: Vital Signs Temp Pulse Resp BP Pulse Ox 36.8 C 92 16 100/52 L 94 07/11/17 08:50 07/11/17 08:50 07/11/17 08:50 07/11/17 08:50 07/11/17 08:50 Laboratory Results 07/11/17 06:10 07/11/17 06:10 07/10/17 07/11/17 07/12/17 05:59 05:59 05:59 Intake Total 400 1850 Output Total 1300 400 300 Balance -900 1450 -300 PT 13.3 SEC (12.0-15.0) 07/03/17 09:15 INR 0.99 (0.83-1.16) 07/03/17 09:15 ICD10 Worksheet Patient Problems: Problems Problem Status Onset Anemia Acute Rectal bleed Acute Abdominal mass Acute Acute cholecystitis Acute Uterine fibroid Acute Vaginal hemorrhage Acute
--- NOTE | 2017-07-11 12:59 | ASMTCMCOM ---
CM Note CM Note Notes: Pt has fever so no DC today. Updated [facility]. CM to follow. Date Signed: 07/11/2017 12:58 PM Electronically Signed By:Roxy Castro LCSW
--- NOTE | 2017-07-11 13:42 | SOAPPROG ---
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 Relapsed (rectal mass) 8 months after CAR-T cell therapy. Progressed on Revlimid/Rituxan and has completed one cycle Bendamustine/Velcade/Rituxan (completed C1 06/30/17). Presented last weekend with increased rectal bleeding, increased abdominal distension, and impending bowel obstruction. * Relapsed MCL: reviewed current CT with PET 06/04/17 with radiology. Definite progression in perisplenic disease, pelvic disease, and new RP nodes. She has previously been treated with bendamustine/Rituxan, ibrutinib, CAR-T cell therapy, Revlimid/Rituxan, Bendamustine/Velcade/Rituxan. Unfortunately, she is no longer a candidate for non-myeloablative alloSCT which was being considered at [facility]. Her disease is too extensive, aggressive, and has not been demonstrated to be chemo-sensitive. She definitely wants to continue with treatment. Palliative RT is an option and Dr. Donahue has seen her. I am concerned that if she has RT first, resultant myelosuppression may prohibit future chemo. We again discussed Rituxan-gemcitabine/dex/cisplatin (R-GDP), which has demonstrated activity in relapsed/refractory lymphomas (most of the data in DLBCL). I recommend trial first of chemo first, reserving RT if needed. She is also being screened for a Phase I clinical trial at [facility] ( [employer] study, [id number]). She would have to wait 28 days from surgery to start the trial. I think she needs tx before then. - anticipate chemo (GDP) next week, Dr. Ochoa aware and comfortable with that. - she should resume her to resume allopurinol when she goes home. * s/p diverting colostomy: recovering well. * Pain: due to pelvic/rectal involvement. Improved with MS Contin. 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 No indication for transfusion. * Hypogammaglobulinemia: received IVIG 06/18/17. * * Possible UTI - I would culture her urine and treat empirically until culture results are back. Her lymphoma makes her immunocompromised. Anticipate D/C to home in next 24-48 hours. She has [facility] appt Wed. Subjective: Looking forward to going home. Concerned about possible UTI Objective: Vital Signs Temp Pulse Resp BP Pulse Ox 36.8 C 92 16 100/52 L 94 07/11/17 08:50 07/11/17 08:50 07/11/17 08:50 07/11/17 08:50 07/11/17 08:50 Laboratory Results 07/11/17 06:10 07/11/17 06:10 07/09/17 07/10/17 07/11/17 23:59 23:59 23:59 Intake Total 240 1750 500 Output Total 1100 1200 300 Balance -860 550 200 PT 13.3 SEC (12.0-15.0) 07/03/17 09:15 INR 0.99 (0.83-1.16) 07/03/17 09:15 Physical Exam - Physical Exam General Appearance: alert Skin: pallor Neuro/Psych: oriented x 3 ICD10 Worksheet Patient Problems: Problems Problem Status Onset Anemia Acute Rectal bleed Acute Abdominal mass Acute Acute cholecystitis Acute Uterine fibroid Acute Vaginal hemorrhage Acute
--- NOTE | 2017-07-11 14:21 | WOCRNPDOC ---
[facility] Advanced Assessment Note - Colostomy Assessment, Advanced Left Abdomen Colostomy Stoma Colostomy Appliance Intact: Yes Colostomy Appliance Currently in Use: One Piece Flat, 4 Inch Stoma Color: [place] Stoma Turgor: Moist Stoma Shape: Round Stoma Height: Protruding Slightly Mucocutaneus Junction: Intact Colostomy Effluent: Fecal Colostomy Size - Head-to-Toe Length X Width X Depth (cm): 57mm Colostomy Details: Colectomy, Loop Peristomal Skin: Intact Colostomy Comment/Treatment Details: Contacted by Ramonita Bello to let me know that the bridge had been removed and that patient could likely be fitted to a smaller appliance. Spent 45 minutes with the patient removing larger pouch and reapplying 3 inch one-piece coloplast pouch. 3 pouches left in room (in pink bucket) for use by staff. Patient producing stool from stoma. Stoma measures 57mm. Used marker to kaci on template of pouch. Patient cut out with no assistance. Template left in pink bucket. Asked patient to fold appliance as if it were in place. She fumbled a little bit with this task but once shown, was able to perform by herself. Pouch placed by this RN. Warm blanket placed on top. Discussed that it might be beneficial for pouch to be directed toward her side while hospitalized but that upon DC, directing the opening toward the center of the body would allow for emptying while on the toilet. Remaining patient questions answered. Wound care will follow up on Wednesday, 07/13.
--- NOTE | 2017-07-11 20:44 | HOSPPROG ---
Hospitalist Progress Note Assessment/Plan: Assessment: 67 yo F p/w acute rectal obstruction in setting of mantel cell lymphoma c/b persistent fever and anemia Plan: # Rectal Obstruction - secondary to lymphoma- POD #7 from diverting colostomy. She is tolerating oral intake as passing normal stool into colostomy. - cont prn pain meds - cont PO intake - good stool output today w/ increased senokot, will reduce to once daily # Fever - acute, ongoing w/u indicated. Unclear etiology, potentially 2/2 lymphoma vs. UTI (no urinary sx) vs. unidentified source - d/w Dr. Francois, UA weakly positive, get UCx and monitor for manifestation of sx prior to treating - CXR w/o focal infiltrate - get BCx - only PRN tylenol, monitor fever curve - abd completely benign, will not get abd CT at this time - get ID consult tomorrow to help further assess, as I do not feel safe discharging patient home today w/o clearer explanation for fever # Rectal Pain - less limiting activity today - cont MsContin 15mg TID, likely contributing to some AM fatigue - changed oxycodone to PO dilaudid - cont PT/OT for dc planning # Acute on Chronic Hypoxic Resp Failure - evidenced by SpO2 74% on room air, RR 30+, requiring up to 15LPM high flow o2 w/ shortness of breath, 2/2 acute suspected diastolic CHF and NOT related to her surgery - cont on 3 LPM o2, likely require at discharge # Acute diastolic CHF exacerbation. CXR w/ bilat pulm edema and LLL pleural effusion, patient hypervolemic and required IV lasix - monitor I/O/weights - Echo w/ normal EF - CXR improving, ongoing 2.5L requirement # Atelectasis - acute, IS # ABLA -Hgb 7.6, iron studies demonstrate an iron deficient component which is likely 2/2 chronic inflammatory disease of MCL - transfused 1u today w/ lasix IV to follow # Mantle Cell Lymphoma - d/w Dr. Castillo, we discussed holding pt for infxn monitoring above - plan for chemo prior to XRT PPx. SCDs Diet. Regular Code. Full Dispo. ADD 07/12, pending stabilization of fever Subjective: chills, night sweats, no dysuria or urinary symptoms, increased stool output after stool softener increase Objective: Vital Signs Temp Pulse Resp BP Pulse Ox 37.3 C 91 15 94/50 L 91 L 07/11/17 19:37 07/11/17 19:37 07/11/17 19:37 07/11/17 19:37 07/11/17 19:37 Laboratory Results 07/11/17 06:10 07/11/17 06:10 07/10/17 07/11/17 07/12/17 05:59 05:59 05:59 Intake Total 400 1850 1800 Output Total 2997 833 0388 Balance -900 1450 750 PT 13.3 SEC (12.0-15.0) 07/03/17 09:15 INR 0.99 (0.83-1.16) 07/03/17 09:15 - Physical Exam Constitutional: no apparent distress, not in pain, chronically ill appearing, No uncomfortable Cardiovascular: regular rate and rhythym, no murmur, rub, or gallop, No edema Respiratory: inspiratory crackles (bilat bases), No reduced air movement, No expiratory wheeze, No bronchial breath sounds, No respiratory distress Gastrointestinal: normoactive bowel sounds, distension (mildly), other (normal stoma), No tenderness, No guarding Skin: No rash Neurologic: AAOx3, sensation intact bilaterally, No weakness Psychiatric: interacting appropriately, not anxious, not encephalopathic, thought process linear ICD10 Worksheet Patient Problems: Problems Problem Status Onset Vaginal hemorrhage Acute Uterine fibroid Acute Acute cholecystitis Acute Abdominal mass Acute Rectal bleed Acute Anemia Acute
[2017-07-12] MEDS: ACETAMINOPHEN 325 MG TAB PO PRN ×2 (04:22→16:58)
[2017-07-12 04:48] LABS: PLATELET COUNT 107 10^3/uL (150-400)
--- NOTE | 2017-07-12 09:42 | SOAPPROG ---
SOAP Progress Note Assessment/Plan: Assessment: 1. mantle cell lymphoma, refractory after many prior lines of Rx 2. rectal mass (lymphoma) resulting in obstruction 3. s/p diverting colostomy 4. anemia and thrombocytopenia Plan: - pt getting close to discharge - eating normally - plan for chemo (r-gemcitabine) this Wed - may delay if pt not ready - no transfusions needed right now for hgb 07/12/17 09:39 07/12/17 09:41 Subjective: eating well. feels tired. Objective: exam: thin, chronically ill, NAD Lungs CTAB CV RRR no MGR Abd: +BS NT ND. colostomy Ext: no edema Vital Signs Temp Pulse Resp BP Pulse Ox 36.4 C 87 16 88/50 L 92 07/12/17 08:40 07/12/17 08:40 07/12/17 08:40 07/12/17 08:40 07/12/17 08:40 Laboratory Results 07/12/17 04:27 07/12/17 04:27 07/11/17 07/12/17 07/13/17 05:59 05:59 05:59 Intake Total 1850 2300 Output Total 400 1250 600 Balance 1450 1050 -600 PT 13.3 SEC (12.0-15.0) 07/03/17 09:15 INR 0.99 (0.83-1.16) 07/03/17 09:15 ICD10 Worksheet Patient Problems: Problems Problem Status Onset Anemia Acute Rectal bleed Acute Abdominal mass Acute Acute cholecystitis Acute Uterine fibroid Acute Vaginal hemorrhage Acute
[2017-07-12] MEDS: DAPSONE 100 MG TAB PO SCH (09:46)
[2017-07-12] MEDS: SENNOSIDES 1 TAB PO SCH ×2 (09:46→21:55)
[2017-07-12] MEDS: CHOLECALCIFEROL VIT D3 1,000 UNITS TAB PO SCH (09:46)
[2017-07-12] MEDS: ACYCLOVIR 400 MG TAB PO SCH ×2 (09:46→21:55)
[2017-07-12] MEDS: morphINE SR 15 MG TAB PO SCH ×3 (09:46→21:54)
--- NOTE | 2017-07-12 10:36 | SOAPPROG ---
SOAP Progress Note Assessment/Plan: Assessment/Plan: 67 Y F c lymphoma and rectal obstruction s/p sigmoid loop colostomy, POD#8. Looking remarkably well despite fevers. Urine and blood cultures pending. CXR ok. Query fever from lymphoma or UTI? I agree with empiric treatment for UTI. D/ w'ed medicine. S: eating, stooling, no n/v. rectal/pelvic pain better. O: alert, smiling, nad no wob abd soft, nt ostomy pink, +soft formed brown stool. 07/12/17 10:34 Objective: Vital Signs Temp Pulse Resp BP Pulse Ox 36.4 C 87 16 91/50 L 92 07/12/17 08:40 07/12/17 08:40 07/12/17 08:40 07/12/17 09:50 07/12/17 08:40 Laboratory Results 07/12/17 04:27 07/12/17 04:27 07/11/17 07/12/17 07/13/17 05:59 05:59 05:59 Intake Total 1850 2300 Output Total 400 1250 600 Balance 1450 1050 -600 PT 13.3 SEC (12.0-15.0) 07/03/17 09:15 INR 0.99 (0.83-1.16) 07/03/17 09:15 ICD10 Worksheet Patient Problems: Problems Problem Status Onset Anemia Acute Rectal bleed Acute Abdominal mass Acute Acute cholecystitis Acute Uterine fibroid Acute Vaginal hemorrhage Acute
--- NOTE | 2017-07-12 11:40 | HOSPPROG ---
Hospitalist Progress Note Assessment/Plan: Assessment: 67 yo F p/w acute rectal obstruction in setting of mantel cell lymphoma c/b persistent fever and anemia Plan: Rectal Obstruction - secondary to lymphoma- POD #8 from diverting colostomy. She is tolerating oral intake as passing normal stool into colostomy. Fever - acute, ongoing w/u indicated. Unclear etiology, potentially 2/2 lymphoma vs. UTI (no urinary sx) vs. unidentified source check CT PE today as source of fevers infectious workup neg thus far Rectal Pain - less limiting activity today cont MsContin 15mg TID, likely contributing to some AM fatigue changed oxycodone to PO dilaudid cont PT/OT for dc planning Acute on Chronic Hypoxic Resp Failure improving CT today cxr's improving (interp by me) Atelectasis - acute, IS ABLA -Hgb 7.6, iron studies demonstrate an iron deficient component which is likely 2/2 chronic inflammatory disease of MCL transfused 1u today w/ lasix IV to follow Mantle Cell Lymphoma - d/w Dr. Castillo, we discussed holding pt for infxn monitoring above plan for chemo prior to XRT PPx. SCDs Diet. Regular Code. Full Dispo. ADD 07/12, pending stabilization of fever Subjective: case d/w dr silva, gretel winchester. good ostomy output Objective: Vital Signs Temp Pulse Resp BP Pulse Ox 36.4 C 87 16 91/50 L 92 07/12/17 08:40 07/12/17 08:40 07/12/17 08:40 07/12/17 09:50 07/12/17 08:40 Laboratory Results 07/12/17 04:27 07/12/17 04:27 07/11/17 07/12/17 07/13/17 05:59 05:59 05:59 Intake Total 1850 2300 Output Total 400 1250 600 Balance 1450 1050 -600 PT 13.3 SEC (12.0-15.0) 07/03/17 09:15 INR 0.99 (0.83-1.16) 07/03/17 09:15 - Physical Exam Constitutional: no apparent distress, appears nourished Eyes: PERRL, anicteric sclera Ears, Nose, Mouth, Throat: moist mucous membranes, hearing normal Cardiovascular: regular rate and rhythym, no murmur, rub, or gallop Respiratory: no respiratory distress, no rales or rhonchi Gastrointestinal: normoactive bowel sounds, soft, non-tender abdomen, other ( ostomy c/d/i) Genitourinary: no bladder fullness, avendano in urethra Skin: warm, normal color Musculoskeletal: full muscle strength, no muscle tenderness Neurologic: AAOx3 Psychiatric: interacting appropriately ICD10 Worksheet Patient Problems: Problems Problem Status Onset Anemia Acute Rectal bleed Acute Abdominal mass Acute Acute cholecystitis Acute Uterine fibroid Acute Vaginal hemorrhage Acute
[2017-07-12] MEDS ORDERED: IOPAMIDOL (ISOVUE 370) 100 ML BTL IV ONE (11:54)
--- NOTE | 2017-07-12 19:05 | GCON ---
[f rep st] CONSULTATION INPATIENT INFECTIOUS DISEASE CONSULTATION REFERRING PHYSICIAN: Nils Fowler MD REASON FOR REFERRAL: Fevers. HISTORY OF PRESENT ILLNESS: Patient is a 67-year-old female who was admitted to [facility] on 07/03/2017, secondary to a gastrointestinal bleed. Patient has a diffuse mantle cell lymphom a, and presented this visit with a rectal recurrence. Patient had been experiencing increased abdomi nal distention and discomfort. She underwent surgery where she had a sigmoid loop colostomy placed o n 07/04/2017. Plans were to begin her on a 3rd or 4th line chemotherapy regimen starting Wednesday. Patient began having sporadic temperature elevations beginning on 07/09/2017. The maximum temperatu re elevation was measured yesterday evening on 07/11/2017 at 1823. The temperature was elevated at t hat point to 38.9 degree Celsius. Blood cultures and urine cultures are pending. Urinalysis was obt ained. Currently, the patient is resting in her hospital bed. She appears chronically ill. No foca l symptoms. Patient denies any urinary discomfort specifically. PAST MEDICAL HISTORY: 1. Stage IV mantle cell lymphoma. 2. Osteopenia. 3. Hypercholesterolemia. 4. Uterine fibroids. PAST SURGICAL HISTORY: 1. Status post lymph node biopsy. 2. Status post parathyroidectomy. 3. Status post cholecystectomy. 4. Status post uterine embolization. 5. Status post section. 6. Status post orthopedic tib-fib fracture repair on the left side. MEDICATIONS: Antibiotics. 1. Acyclovir. 2. Dapsone. ALLERGIES: Patient is allergic to sulfa. SOCIAL HISTORY: Patient is . She is retired from [employer]. Patient lives [facility]. FAMILY HISTORY: Reviewed, but noncontributory. REVIEW OF SYSTEMS: Apart from that detailed above in History of Present Illness, a comprehensive 10- system review is negative. PHYSICAL EXAMINATION: VITAL SIGNS: Temperature maximum 38.9, temperature current 37.6, heart rate i s 90, respiratory rate is 16, blood pressure is 100/60. GENERAL: Patient is a well-formed, well-nou rished, chronically ill-appearing older female in no acute distress. She is not toxic in appearance. She is alert and oriented x3. She is pleasant in demeanor. HEENT: Normocephalic for age. Atraum atic. No scleral icterus. No oral lesion or drainage from the nares. LUNGS: Clear to auscultation bilaterally with good effort. HEART: Regular rate and rhythm. No significant peripheral edema. S KIN: Warm and dry to the touch. No rash or lesion seen. MUSCULOSKELETAL: No muscle belly tenderne ss is noted. No joint line effusion or arthritis seen. LABORATORY DATA: Patient has a CBC dated 07/12/2017, shows white blood cell count of 7.6, hemoglobin 9.1, hematocrit of 26.2, platelet count of 107. Differential shows 52% mature segmented neutrophils , 32% band forms. Serum chemistries on 07/12/2017, show sodium of 132, potassium 4.2, chloride of 97 , bicarbonate of 25, BUN of 23, creatinine is 0.8. Urinalysis on 07/10/2017, shows 5-10 white cells per high-power field. MICROBIOLOGIC DATA: Has blood cultures dated 07/10/2017, show no growth to date. Urine culture date d 07/11/2017, shows multiple colony types of low quantity. ASSESSMENT: Fevers, unclear source. I suspect these fevers are secondary to the mantle cell lymphom a. I think that no empiric antibiotics are appropriate at this time, barring any surprise positive r esults from blood cultures. At this point, I think Oncology's plan to pursue treatment should be tessa cted. We will watch peripherally for changes in patient's condition and laboratory findings. PLAN: 1. No antibiotics for now. 2. Follow clinically. /[id number]/MODL
[2017-07-12] MEDS: MELATONIN 3 MG TAB PO SCH (21:54)
[2017-07-13] MEDS: ACETAMINOPHEN 325 MG TAB PO PRN (03:49)
[2017-07-13 08:55] VITALS: PULSE 86
[2017-07-13] MEDS ORDERED: ALLOPURINOL 300 MG TAB PO SCH (09:00)
--- NOTE | 2017-07-13 09:04 | SOAPPROG ---
SOAP Progress Note Assessment/Plan: Assessment: 1. mantle cell lymphoma, refractory after many prior lines of Rx 2. rectal mass (lymphoma) resulting in obstruction 3. s/p diverting colostomy 4. anemia and thrombocytopenia 5. fever, likely due to lymphoma. infectious w/u negative Plan: - d/ to home - plan for chemo (r-gemcitabine) this Wed d/w dr andujar. Subjective: feeling better today. Objective: exam: thin, NAD Lungs CTAB CV RRR no MGR Abd: +BS NT ND. ostomy Ext: no edema Neuro: a+ox3 Vital Signs Temp Pulse Resp BP Pulse Ox 36.6 C 86 16 96/51 L 97 07/13/17 08:45 07/13/17 08:45 07/13/17 08:45 07/13/17 08:45 07/13/17 08:45 Laboratory Results 07/12/17 04:27 07/12/17 04:27 07/12/17 07/13/17 07/14/17 05:59 05:59 05:59 Intake Total 2300 1000 Output Total 1250 1250 Balance 1050 -250 PT 13.3 SEC (12.0-15.0) 07/03/17 09:15 INR 0.99 (0.83-1.16) 07/03/17 09:15 ICD10 Worksheet Patient Problems: Problems Problem Status Onset Anemia Acute Rectal bleed Acute Abdominal mass Acute Acute cholecystitis Acute Uterine fibroid Acute Vaginal hemorrhage Acute
--- NOTE | 2017-07-13 09:12 | HOSPPROG ---
Hospitalist Progress Note Assessment/Plan: Assessment: 67 yo F p/w acute rectal obstruction in setting of mantel cell lymphoma c/b persistent fever and anemia Plan: Rectal Obstruction - secondary to lymphoma- POD #8 from diverting colostomy. She is tolerating oral intake as passing normal stool into colostomy. Fever - acute, ongoing w/u indicated. Unclear etiology, potentially 2/2 lymphoma vs. UTI (no urinary sx) vs. unidentified source check CT PE today as source of fevers infectious workup neg thus far Rectal Pain - less limiting activity today cont MsContin 15mg TID, likely contributing to some AM fatigue changed oxycodone to PO dilaudid cont PT/OT for dc planning Acute on Chronic Hypoxic Resp Failure improving CT today cxr's improving (interp by me) Atelectasis - acute, IS ABLA -Hgb 7.6, iron studies demonstrate an iron deficient component which is likely 2/2 chronic inflammatory disease of MCL transfused 1u today w/ lasix IV to follow Mantle Cell Lymphoma - d/w Dr. Castillo, we discussed holding pt for infxn monitoring above plan for chemo prior to XRT home today > 30 minutes on dc Subjective: feels well. afebrile. cta neg. case d/w dr greene Objective: Vital Signs Temp Pulse Resp BP Pulse Ox 36.6 C 86 16 96/51 L 97 07/13/17 08:45 07/13/17 08:45 07/13/17 08:45 07/13/17 08:45 07/13/17 08:45 Laboratory Results 07/12/17 04:27 07/12/17 04:27 07/12/17 07/13/17 07/14/17 05:59 05:59 05:59 Intake Total 2300 1000 Output Total 1250 1250 Balance 1050 -250 PT 13.3 SEC (12.0-15.0) 07/03/17 09:15 INR 0.99 (0.83-1.16) 07/03/17 09:15 - Physical Exam Constitutional: no apparent distress, appears nourished Eyes: PERRL, anicteric sclera Ears, Nose, Mouth, Throat: moist mucous membranes, hearing normal Cardiovascular: regular rate and rhythym, no murmur, rub, or gallop Respiratory: no respiratory distress, no rales or rhonchi Gastrointestinal: normoactive bowel sounds, soft, non-tender abdomen Genitourinary: No avendano in urethra Skin: warm, normal color Musculoskeletal: full muscle strength Neurologic: AAOx3 Psychiatric: interacting appropriately ICD10 Worksheet Patient Problems: Problems Problem Status Onset Anemia Acute Rectal bleed Acute Abdominal mass Acute Acute cholecystitis Acute Uterine fibroid Acute Vaginal hemorrhage Acute
[2017-07-13 09:35] VITALS: O2SAT 83
--- NOTE | 2017-07-13 09:40 | PDHOMEO2F ---
Home Oxygen Face to Face Home Orders: I certify that a physician or a nurse practitioner or physician's paraprofessional education assistant has had a [id number] encounter with this patient on the date of this order due to the diagnosis listed, which relates to the primary reason the patient requires home oxygen. Alternative treatments have been tried, or considered, and deemed ineffective. It is anticipated that supplemental oxygen will result in improvement with treatment. Home oxygen qualifying diagnosis: atelectasis SpO2 on room air (%): 83 Frequency of home oxygen needed: continuous Home oxygen liters per minute: 2 Home oxygen delivery device: nasal cannula Concentrator: No E-tanks for mobility and back up: Yes If ordering portable O2, is the patient mobile in the home?: Yes I certify that, based on these findings, the home oxygen is medically necessary for this patient for the following length of time. Length of time home oxygen needed: 1 month
[2017-07-13] MEDS: DAPSONE 100 MG TAB PO SCH (10:18)
[2017-07-13] MEDS: ACYCLOVIR 400 MG TAB PO SCH (10:18)
[2017-07-13] MEDS: SENNOSIDES 1 TAB PO SCH (10:18)
[2017-07-13] MEDS: CHOLECALCIFEROL VIT D3 1,000 UNITS TAB PO SCH (10:19)
[2017-07-13] MEDS: morphINE SR 15 MG TAB PO SCH (10:23)
--- NOTE | 2017-07-13 11:25 | WOCRNPDOC ---
[facility] Advanced Assessment Note - Colostomy Assessment, Advanced Left Abdomen Colostomy Stoma Colostomy Appliance Intact: Yes Colostomy Appliance Currently in Use: One Piece Flat, 3 Inch, Cut to Fit Stoma Color: Red Stoma Turgor: Moist Stoma Shape: Oval Stoma Height: Protruding Mucocutaneus Junction: Intact Colostomy Effluent: Fecal Colostomy Details: Loop Colostomy Comment/Treatment Details: Bridge removed Wednesday enabling smaller, 3 inch pouching system. Stoma is slightly smaller today. Traced template for patient, and she was able to cut it out herself. No stomal complications observed, and patient is having good output. No peristomal skin complications. New pouching system applied w/ min assist from patient. She is scheduled to dc to day w/ HH; ostomy supply order was called in to [facility] last Sunday 07/09. Patient was also supplied w/ additional pouches to take home with her, and given information about whom to contact if she encounters stomal/peristomal complications.
[2017-07-13 12:29] VITALS: BP 84/50; RESP 18; TEMP 98.4
--- NOTE | 2017-07-13 14:15 | PDIAF ---
- Diagnosis Diagnosis: mantle cell ymphoma Code Status: Full Code - Medication Management Discharge Medications: Medications to Continue on Transfer Herbals/Supplements -Info Only 1 each PO DAILY 04/05/15 [Last Taken 06/09/17 08: 00] Cholecalciferol Vit D3 [Vitamin D3 (*)] 1,000 units PO DAILY 12/15/15 [Last Taken 07/02/17] Acyclovir [Zovirax 400 mg (*)] 400 mg PO BID 03/31/17 [Last Taken 07/02/17] Dapsone [Dapsone 100 mg (*)] 100 mg PO DAILY 03/31/17 [Last Taken 07/02/17] Bendamustine HCl [Bendeka (*)] 64 mg IV .MONTHLY 06/09/17 [Last Taken 06/08/17] Bortezomib [Velcade IV] 1.7 mg IV .WEEKLY 06/09/17 [Last Taken 06/08/17] riTUXimab [Rituxan 500mg (*)] 480 mg IV .MONTHLY 06/09/17 [Last Taken 06/08/17] Lactulose 15 ml PO DAILY PRN 07/03/17 [Last Taken 07/02/17] Polyethylene Glycol 3350 [Miralax 17 gm (*)] 17 gm PO DAILY PRN 07/03/17 [Last Taken Unknown] Prochlorperazine Maleate [Compazine 10mg (*)] 10 mg PO DAILY PRN 07/03/17 [Last Taken Unknown] Sennosides [Senokot 8.6mg (OTC)] 1 each PO DAILY PRN 07/03/17 [Last Taken Unknown] oxyCODONE IR [Oxycodone Ir (*)] 5 mg PO DAILY PRN 07/03/17 [Last Taken 07/02/17] Acyclovir [Zovirax 400 mg (*)] 400 mg PO BID tab 07/13/17 [Last Taken Unknown] Discharge Medications: Refer to the Discharge Home Medication list for PRN reason. - Orders Services needed: Registered Nurse, Physical Therapy, Occupational Therapy Isolation Type: Chemotherapy Isolation - Follow Up Care Current Providers and Referrals: Dorina Elias MD [Primary Care Provider] - As per Instructions Lyle Ochoa MD [Medical Doctor] - follow up in 2 weeks
--- NOTE | 2017-07-14 17:02 | ASDISCHSUM ---
Discharge Information Plan Status:Home with Home Health Medically Cleared to Leave: Discharge Date:07/13/2017 03:48 PM CM D/C Disposition:Home Health Service ADT D/C Disposition:Home, Routine, Self-Care Projected Discharge Date:07/13/2017 03:48 PM Transportation at D/C:Family Discharge Delay Reason: Follow-Up Date:07/13/2017 03:48 PM Discharge Slot: Final Diagnosis: Placement Information Patient Contact Information Contact Name:JULIEN Relationship:Dhaval Address: City:[place] Alternate Phone: [facility]/Zip Code:[place] Email: Financial Information Financial Class: Primary Plan Desc:MEDICARE INPATIENT Primary Plan Number:[id number] Secondary Plan Desc:HUMANA Secondary Plan Number:[id number] Assessment Information [facility] CM Progress Note CM Note CM Note Notes: 67 year old female admitted for mantle cell lymphoma, with rectal recurrance, constipation and bleeding. Patient is currently in ca tx. She has a hx of L carotid dissection, osteopenia. CM to follow for possible discharge needs. Date Signed: 07/04/2017 04:48 PM Electronically Signed By:Melanie Marquez LCSW [facility] CM Progress Note CM Note CM Note Notes: Patient had surgery for rectal obstruction today. PT is still recommending home or home care. D/C plan may change depending on needs. CM will follow. Date Signed: 07/06/2017 11:50 AM Electronically Signed By:Mally Bledsoe LCSW [facility] CM Progress Note CM Note CM Note Notes: Spoke w/pt re; dc poc. Recommendation is for a RN (new ostomy) and PT. She states she has had homecare in the past but cannot remember the name of the agency. Gave pt homecare list but still does not remember, thinks she has it at home. Will have someone check and let CM know tomorrow. DC Plan: Home care (RN/PT) Date Signed: 07/07/2017 03:47 PM Electronically Signed By:Rena Toney RN [facility] CM Progress Note CM Note CM Note Notes: Pt has fever so no DC today. Updated [facility]. CM to follow. Date Signed: 07/11/2017 12:58 PM Electronically Signed By:Roxy Castro LCSW Case Management Discharge Plan Note Case Management Discharge Discharge Order Complete? Answers: Yes Patient to Obtain Answers: Independently Medications Transportation Arranged Answers: Family/Friends Faxed Final Orders Answers: Yes Discharge Comments Notes: Patient discharging home with home health - RN/PT with [facility]. I called Afua at [facility] and let her know. Her friend will pick her up to take her home. Date Signed: 07/13/2017 10:31 AM Electronically Signed By:Silvai Acevedo RN Intervention Information Intervention Type:*IM-Signed Date of Service:07/13/2017 11:32 AM Patient Type:Inpatient Staff Member:Itzel Duff Hours: Discipline: Severity: Comment:
== END 2017-07-13 15:48 | disposition home or self-care (01) | DRG 823 ==
LOC: F3N 12:05 → F2N 07-04 14:04 → F1N 07-05 11:41
PROVIDERS: ADMIT Student in an Organized Health Care Education/Training Program; ATTEND Student in an Organized Health Care Education/Training Program
PROC: 30233N1 Transfusion of Nonautologous Red Blood Cells into Peripheral Vein, Percutaneous Approach (ICD-10-PCS; 2017-07-04)
PROC: 0D1N0Z4 Bypass Sigmoid Colon to Cutaneous, Open Approach (ICD-10-PCS; principal; 2017-07-04 10:00)
DX: C83.13 Mantle cell lymphoma, intra-abdominal lymph nodes (principal); J96.21 Acute and chronic respiratory failure with hypoxia; I50.31 Acute diastolic (congestive) heart failure; J98.11 Atelectasis; D80.1 Nonfamilial hypogammaglobulinemia; D62 Acute posthemorrhagic anemia; D64.81 Anemia due to antineoplastic chemotherapy; K59.00 Constipation, unspecified; K64.8 Other hemorrhoids
CPT/HCPCS: 97112-GP; 97116-GP; 97161-GP; 97165-GO; 97535-GO; G8987-GO-CJ; G8988-GO-CI; J0694; J1100; J1170; J1642; J1940; J2001; J2250; J2405; J2704; J3010; J7613; P9016; P9040; Q9967

== ENCOUNTER 2017-07-21 11:33 | Outpatient (CLI) | payer OTHER ==
[2017-07-21] MEDS ORDERED: ACETAMINOPHEN 325 MG TAB PO ONE (12:30)
[2017-07-21] MEDS ORDERED: diphenhydrAMINE 25 MG CAP PO ONE (12:45)
== END 2017-07-21 19:10 | disposition home or self-care (01) ==
LOC: FOBOP 11:33
PROVIDERS: ATTEND Internal Medicine Hematology & Oncology
PROC: 30233N1 Transfusion of Nonautologous Red Blood Cells into Peripheral Vein, Percutaneous Approach (ICD-10-PCS; principal; 2017-07-21)
DX: C83.10 Mantle cell lymphoma, unspecified site (principal); Z88.2 Allergy status to sulfonamides
CPT/HCPCS: 36430; J1642; P9016; P9040

== ENCOUNTER → 2017-07-22 | Outpatient (CLI) | payer OTHER | LOC: FIMAGING 16:25 | PROVIDERS: ATTEND Nurse Practitioner | DX: R10.9 Unspecified abdominal pain (principal); C85.80 Other specified types of non-Hodgkin lymphoma, unspecified site ==

== ENCOUNTER 2017-07-23 15:37 | Outpatient (CLI) | payer OTHER ==
[2017-07-23 17:00] VITALS: BP 109/59; PULSE 81; RESP 16; TEMP 100; O2SAT 91
== END 2017-07-23 17:50 | disposition home or self-care (01) ==
LOC: FOBOP 15:37
PROVIDERS: ATTEND Internal Medicine Hematology & Oncology
PROC: 30233R1 Transfusion of Nonautologous Platelets into Peripheral Vein, Percutaneous Approach (ICD-10-PCS; principal; 2017-07-23)
DX: C85.90 Non-Hodgkin lymphoma, unspecified, unspecified site (principal)
CPT/HCPCS: 36430; P9073

== ENCOUNTER 2017-07-29 09:06 | Outpatient (CLI) | payer OTHER ==
[2017-07-29] MEDS ORDERED: ACETAMINOPHEN 325 MG TAB PO ONE (10:00)
[2017-07-29] MEDS ORDERED: diphenhydrAMINE 25 MG CAP PO ONE ×2 (10:00)
== END 2017-07-29 15:45 | disposition home or self-care (01) ==
LOC: FOBOP 09:06
PROVIDERS: ATTEND Internal Medicine Hematology & Oncology
PROC: 30233N1 Transfusion of Nonautologous Red Blood Cells into Peripheral Vein, Percutaneous Approach (ICD-10-PCS; principal; 2017-07-29)
DX: C83.10 Mantle cell lymphoma, unspecified site (principal)
CPT/HCPCS: 36430; J1642; P9016; P9040

== ENCOUNTER → 2017-08-12 | Outpatient (CLI) | payer OTHER ==
[~2017-08-12] MED LIST changes: +ACETAMINOPHEN 325 MG TAB PO ONE; -IOPAMIDOL (ISOVUE 370) 100 ML BTL IV ONE; +diphenhydrAMINE 25 MG CAP PO ONE
[2017-08-12 11:01] VITALS: BP 102/56; PULSE 75; RESP 24; TEMP 97.7; O2SAT 94
== END ==
LOC: FOBOP 10:19
PROVIDERS: ATTEND Internal Medicine Hematology & Oncology
PROC: 30233N1 Transfusion of Nonautologous Red Blood Cells into Peripheral Vein, Percutaneous Approach (ICD-10-PCS; principal; 2017-08-12)
DX: C83.10 Mantle cell lymphoma, unspecified site (principal)
CPT/HCPCS: 36430; J1642; P9016; P9040

== ENCOUNTER 2017-08-23 14:42 | Outpatient (CLI) | payer OTHER ==
[2017-08-23] MEDS ORDERED: ACETAMINOPHEN 325 MG TAB PO ONE (15:15)
[2017-08-23] MEDS ORDERED: FUROSEMIDE 20 MG/2 ML VIAL IVP ONE ×2 (15:15→17:30)
[2017-08-23] MEDS ORDERED: diphenhydrAMINE 25 MG CAP PO ONE (15:15)
[2017-08-23] MEDS ORDERED: PHENAZOPYRIDINE HCL 100 MG TAB PO ONE (19:00)
== END 2017-08-23 20:45 | disposition home or self-care (01) ==
LOC: FOBOP 14:42
PROVIDERS: ATTEND Internal Medicine Hematology & Oncology
PROC: 30233N1 Transfusion of Nonautologous Red Blood Cells into Peripheral Vein, Percutaneous Approach (ICD-10-PCS; principal; 2017-08-23)
DX: C83.10 Mantle cell lymphoma, unspecified site (principal); Z88.2 Allergy status to sulfonamides
CPT/HCPCS: 36430; J1642; J1940; P9016; P9040

== ENCOUNTER 2017-08-24 15:52 | Inpatient (IN) | payer OTHER ==
--- NOTE | 2017-08-24 16:34 | EDPHY ---
H & P Stated Complaint: can't urninate since last night/back pain Time Seen by Provider: 08/24/17 16:34 HPI/ROS: CHIEF COMPLAINT: Urinary retention, back pain, vomiting HISTORY OF PRESENT ILLNESS: The patient presents to the ED with a 2 day history of urinary retention, back pain vomiting. The patient has a history of lymphoma which resulted in a rectal obstruction in June. She required a colostomy at that point time. The patient developed symptoms of urinary hesitancy and retention over the past 2 days. She reportedly had a straight catheterization done several days ago which had over 700 mL. She was started on antibiotics at that point time and a urine culture was obtained. The patient reportedly had vomiting last night and developed recurrent symptoms of urinary retention with associated back pain today. The patient has had a history of some chronic discharge from her rectum but reportedly has developed some vaginal discharge. The patient denies any fever or congestion. She complains of moderate back pain. She denies any acute lower extremity numbness or weakness. REVIEW OF SYSTEMS: A comprehensive 10 point review of systems is otherwise negative aside from elements mentioned in the history of present illness. Source: Patient Exam Limitations: No limitations - Medical/Surgical History Hx Asthma: No Hx Chronic Respiratory Disease: No Hx Diabetes: No Hx Cardiac Disease: No Hx Renal Disease: No Hx Cirrhosis: No Hx Alcoholism: No Hx HIV/AIDS: No Hx Splenectomy or Spleen Trauma: No Other PMH: pmh- lymphoma--chemotherapy, uterine fibroids, disected carotoid artery (2002),2007 broken tib/fib. psh- GALLBLADDER, PARATHYROID, COLOSTOMY. CHEMO, 08/11/17 - Social History Smoking Status: Never smoked - Physical Exam Exam: General Appearance: Thin female, cachectic, no acute distress Eyes: Pupils equal and round no pallor or injection ENT, Mouth: Mucous membranes moist Respiratory: There are no retractions, lungs are clear to auscultation Cardiovascular: Regular rate and rhythm Gastrointestinal: Somewhat distended, stoma appears well perfused without evidence of infection : Discharge noted from the vaginal canal Neurological: 5/5 strength noted all 4 extremities Skin: Warm and dry, no rashes Musculoskeletal: Neck is supple nontender Extremities: symmetrical, full range of motion Constitutional: Initial Vital Signs Temperature (C) 36.8 C 08/24/17 16:05 Heart Rate 95 08/24/17 16:05 Respiratory Rate 20 08/24/17 16:05 Blood Pressure 132/75 H 08/24/17 16:05 O2 Sat (%) 97 08/24/17 16:05 O2 Delivery Mode Nasal Cannula O2 (L/minute) 2 Allergies/Adverse Reactions: Sulfa (Sulfonamide Antibiotics) Allergy (Mild, Verified 08/24/17 16:01) Rash Home Medications: Medication Instructions Recorded Herbals/Supplements -Info Only 1 each PO DAILY 04/05/15 Cholecalciferol Vit D3 [Vitamin D3 1,000 units PO DAILY 12/15/15 (*)] riTUXimab [Rituxan 500mg (*)] 480 mg IV .MONTHLY 06/09/17 Prochlorperazine Maleate 10 mg PO PRN 07/03/17 [Compazine 10mg (*)] Acyclovir [Zovirax 400 mg (*)] 400 mg PO BID tab 07/13/17 CISplatin 08/24/17 Dapsone [Dapsone 100 mg (*)] 100 mg PO DAILY 08/24/17 Dexamethasone [Decadron 4 MG (*)] 4 mg PO DAILY 08/24/17 Nevlisto 08/24/17 Nitrofurantoin Macrobid [Macrobid] 100 mg PO BID 08/24/17 Nystatin Powder [Mycostatin Powder 1 ravi TP TID 08/24/17 (RX)] traZODone [traZODONE 50MG (*)] 50 mg PO HS 08/24/17 Medical Decision Making - Diagnostics Imaging Results: Imaging Impressions Abdomen CT 08/24/17 18:45 Impression: 1. Interval increased size of rectal and perisplenic masses as well as confluent retroperitoneal lymphadenopathy. 2. New onset bilateral mild-moderate hydronephrosis. This could be result of bilateral distal ureteral obstruction or bladder outlet obstruction if indwelling Carolina catheter is not functioning well. 3. New onset mild-moderate obstructive hydrocolpos. 4. Retained stool throughout the colon, likely related to high grade rectal obstruction. Findings and recommendations discussed with Kali Corbin at 7:29 PM hour, . ED Course/Re-evaluation: The patient presents to the ED with the development of acute urinary retention. Patient had a Carolina catheter placed and had nearly 1 L of urine which was drained. She was taken for CT scan of the abdomen pelvis which does demonstrate progression of her pelvic tumor. She has developed possible ureteral obstruction. The patient was noted to have a negative urinalysis yesterday. She is afebrile and without septic physiology. The patient had an IV established. She received a L of normal saline. She received several doses of IV narcotics for pain management. I did notify the patient's surgeon Dr. Ochoa of her admission to the hospital. The case was discussed with Dr. Bony Mcdonnell from the hospitalist service. Differential Diagnosis: Differential diagnosis considered includes renal failure, urinary retention, pelvic abscess - Data Points Laboratory Results: Laboratory Results 08/24/17 17:10 08/24/17 17:10 08/24/17 08/24/17 17:10 17:10 WBC 6.04 10^3/uL 10^3/uL (3.80-9.50) RBC 3.13 10^6/uL L 10^6/uL (4.18-5.33) Hgb 9.4 g/dL L g/dL (12.6-16.3) Hct 28.7 % L D % (38.0-47.0) MCV 91.7 fL fL (81.5-99.8) MCH 30.0 pg pg (27.9-34.1) MCHC 32.8 g/dL g/dL (32.4-36.7) RDW 20.2 % H % (11.5-15.2) Plt Count 75 10^3/uL L 10^3/uL (150-400) MPV 9.0 fL fL (8.7-11.7) Neut % (Auto) Not Reported Lymph % (Auto) Not Reported Catron % (Auto) Not Reported Eos % (Auto) Not Reported Baso % (Auto) Not Reported Nucleat RBC Rel Count 0.0 % % (0.0-0.2) Absolute Neuts (auto) Not Reported Absolute Lymphs (auto) Not Reported Absolute Monos (auto) Not Reported Absolute Eos (auto) Not Reported Absolute Basos (auto) Not Reported Absolute Nucleated RBC 0.00 10^3/uL 10^3/uL (0-0.01) Immature Gran % Not Reported Seg Neutrophils % 32 % % Band Neutrophils % 46 % % Lymphocytes % 6 % % Monocytes % 11 % % Eosinophils % 1 % % Metamyelocytes % 4 % % Immature Gran # Not Reported Absolute Seg Neuts 1.93 10^/uL 10^/uL (1.70-6.50) Absolute Band Neuts 2.78 10^3/uL H 10^3/uL (0.00-0.70) Absolute Lymphocytes 0.36 10^3/uL L 10^3/uL (1.00-3.00) Absolute Monocytes 0.66 10^3/uL 10^3/uL (0.30-0.80) Absolute Eosinophils 0.06 10^3/uL 10^3/uL (0.03-0.40) Absolute Metamyelocyte 0.24 10^3/mL H 10^3/mL (0.00-0.00) Platelet Estimate DECREASED L (ADEQ) Microcytic Cells 1+ H Oval Macrocytes 1+ H Sodium 136 mEq/L mEq/L (135-145) Potassium 3.3 mEq/L L mEq/L (3.5-5.2) Chloride 98 mEq/L mEq/L (97-110) Carbon Dioxide 25 mEq/l mEq/l (22-31) Anion Gap 13 mEq/L mEq/L (8-16) BUN 26 mg/dL H mg/dL (7-23) Creatinine 0.7 mg/dL mg/dL (0.6-1.0) Estimated GFR > 60 Glucose 84 mg/dL mg/dL (70-100) Calcium 8.9 mg/dL mg/dL (8.5-10.4) Medications Given: Discontinued Medications Hydromorphone HCl (Dilaudid) 1 mg IVP EDNOW ONE Stop: 08/24/17 16:58 Last Admin: 08/24/17 16:57 Dose: 1 mg Hydromorphone HCl (Dilaudid) 0.5 mg IVP EDNOW ONE Stop: 08/24/17 19:25 Last Admin: 08/24/17 19:27 Dose: 0.5 mg Sodium Chloride (Ns) 1,000 mls @ 0 mls/hr IV ONCE ONE PRN Reason: Wide Open Stop: 08/24/17 16:58 Last Admin: 08/24/17 17:01 Dose: 1,000 mls Ondansetron HCl (Zofran) 4 mg IVP EDNOW ONE Stop: 08/24/17 19:04 Last Admin: 08/24/17 19:06 Dose: 4 mg Departure - Departure Disposition: [facility] Inpatient Acute Clinical Impression: Urinary retention, Lymphoma, Rectal obstruction Condition: Good Referrals: Dorina Elias MD [Primary Care Provider] - As per Instructions
[2017-08-24] MEDS ORDERED: ONDANSETRON 4 MG/2 ML VIAL ONE (16:55)
[2017-08-24] MEDS ORDERED: HYDROmorphONE/DILAUDID 2 MG/ML INJ ONE (16:55)
[2017-08-24] MEDS ORDERED: HYDROmorphONE/DILAUDID 2 MG/ML INJ IVP ONE ×2 (16:57→19:24)
[2017-08-24] MEDS ORDERED: NS 1,000 ML IV ONE (16:57)
[2017-08-24 17:21] LABS: PLATELET COUNT 75 10^3/uL (150-400)
[2017-08-24] MEDS ORDERED: IOPAMIDOL (ISOVUE-300) 100 ML BTL ONE (18:47)
[2017-08-24] MEDS ORDERED: ONDANSETRON 4 MG/2 ML VIAL IVP ONE (19:03)
[2017-08-24] MEDS ORDERED: DOCUSATE SODIUM 100 MG CAP PO PRN (20:50)
[2017-08-24] MEDS ORDERED: ACETAMINOPHEN 500 MG TAB PO PRN (20:50)
[2017-08-24] MEDS ORDERED: PROCHLORPERAZINE MALEATE 10 MG TAB PO PRN (20:50)
[2017-08-24] MEDS ORDERED: traZODone 50 MG TAB PO PRN (20:50)
[2017-08-24] MEDS ORDERED: ONDANSETRON DISINTEGRATING 4 MG TAB PO PRN (20:51)
--- NOTE | 2017-08-24 21:52 | GHP ---
[f rep st] HISTORY AND PHYSICAL DATE OF ADMISSION: 08/24/2017 CHIEF COMPLAINT: Urinary retention and back pain. HISTORY OF PRESENT ILLNESS: This 67-year-old female with a history of lymphoma with a rectal mass, s tatus post diverting sigmoid colostomy, presents with difficulty urinating. She had been seen in the oncology office a few days before. She described these symptoms. She was straight cathed for 900 m L. Labs were drawn, including a urinalysis, urine culture. She was empirically placed on antibiotic s. She also received a transfusion. Urinalysis did show 5-10 whites, urine culture has shown no doris wth to date. This was taken yesterday. She has been undergoing chemotherapy. She was due for her n ext round of chemotherapy possibly tomorrow. She presented to the emergency department with worsenin g urinary retention, as well as back pain. Carolina catheter was placed in the ED, yielding 700 mL of u rine. There was question of some vaginal discharge as well, and subjective fever a few days ago. PAST MEDICAL/SURGICAL HISTORY: 1. Mantle cell lymphoma. 2. Left carotid artery dissection. 3. 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 4. Osteopenia. 5. Hypercholesterolemia. 6. Fibroids. 7. Possible pleurisy/pericarditis. 8. Lymph node biopsy. 9. Parathyroidectomy. 10. Cholecystectomy. 11. Urine embolization. 12. . 13. Left tib-fib fracture, requiring surgical fixation. MEDICATIONS: Please see medication reconciliation. ALLERGIES: Sulfa. FAMILY HISTORY: Sister had breast cancer. 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 She lives at home. She is accompanied by her son. REVIEW OF SYSTEMS: A 10-point review of systems is conducted and is negative except per HPI. PHYSICAL EXAM: VITAL SIGNS: Blood pressure 122/79, heart rate 93, respiration rate 16, saturating 9 4% on 2 L. Temperature 36.8. GENERAL: Ms. Noriega is a pleasant elderly female, who is resting co mfortably. No acute distress. HEENT: Shows to be normocephalic, atraumatic. CARDIOVASCULAR: Regu lar rate and rhythm. No murmurs, rubs, or gallops. PULMONARY: Lungs clear to auscultation bilatera lly. ABDOMEN: Shows her to be distended. She has a mass in the right lower quadrant. She has a co lostomy in place which appears healthy. SKIN: Exam showed no rash. : Exam shows a Carolina cathete r in place. NEUROLOGIC: Shows her to be alert and oriented x3. She is moving all extremities. PSY CHIATRIC: Exam shows normal mood and affect. LABORATORY DATA: Hemoglobin is 9.4, white count is 6, platelets are 75. Potassium is 3.3, creatinin e 0.7. Urinalysis shows 1+ blood. DATA: 1. I discussed this with Dr. Corbin in the emergency department. We will admit to med/surg. 2. Abdominal CT scan shows bilateral hydronephrosis, increase in size of her rectal mass, hydrocolpo s, retained stool throughout the colon. IMPRESSION AND PLAN: 1. Rectal mass: I believe that this is causing hydrocolpos, as well as urinary retention. She prev iously had rectal obstruction from this. Currently has a colostomy in place. Carolina catheter was keily en in the ED, which is appropriate. We will need to discuss with both Oncology, as well as General Surgery, regarding options for this. Potentially, if chemotherapy were successful, obstruction would be relieved this way. Not sure of the clinical significance of her hydrocolpos at this point either . She had been started on antibiotics. I will stop those, but need to follow her urine culture from August 23. Otherwise care will be per Oncology regarding additional chemotherapy. 2. Hypokalemia: We will see if this improves with her taking better p.o. intake. 3. Retained stool: I am unsure why she would have such stool retention with her ostomy. We could d iscuss this with Dr. Ochoa. 4. Code status: Full. 5. Venous thromboembolism risk: She is high risk. I will give her Lovenox. She did have some blee ding from this mass previously; watch for this. /[id number]/MODL
[2017-08-24] MEDS: HYDROCODONE/APAP 5/325 TAB PO PRN (22:00)
[2017-08-24] MEDS: ACYCLOVIR 400 MG TAB PO SCH (22:01)
[2017-08-24] MEDS: NS 1,000 ML IV SCH (22:03)
[2017-08-25] MEDS: NS 1,000 ML IV SCH (04:25)
[2017-08-25 04:37] LABS: PLATELET COUNT 74 10^3/uL (150-400)
[2017-08-25] MEDS ORDERED: POTASSIUM CL 20 MEQ TAB PO ONE (06:14)
[2017-08-25] MEDS: HYDROCODONE/APAP 5/325 TAB PO PRN ×2 (06:29→09:53)
[2017-08-25] MEDS ORDERED: ENOXAPARIN 40 MG/0.4 ML SYR SC SCH (09:00)
[2017-08-25] MEDS: ACYCLOVIR 400 MG TAB PO SCH ×2 (09:53→20:06)
[2017-08-25] MEDS: DAPSONE 100 MG TAB PO SCH (09:54)
[2017-08-25] MEDS ORDERED: PROTOCOL POTASSIUM 1 DOSE MISC PRN (10:56)
[2017-08-25] MEDS ORDERED: PROMETHAZINE HCL 25 MG/ML INJ IVP PRN (11:12)
[2017-08-25] MEDS ORDERED: PROMETHAZINE HCL 25 MG TAB PO PRN (11:13)
[2017-08-25] MEDS ORDERED: HYDROmorphONE/DILAUDID 4 MG TAB PO PRN (11:15)
[2017-08-25] MEDS ORDERED: HYDROCODONE/APAP 5/325 TAB PO PRN (11:18)
[2017-08-25] MEDS ORDERED: HYDROmorphONE/DILAUDID 2 MG/ML INJ IVP PRN (11:41)
[2017-08-25] MEDS ORDERED: fentaNYL 12 MCG PATCH TD SCH (11:45)
[2017-08-25] MEDS ORDERED: EPOETIN ALFA 10,000 UNIT/ML VIAL SC ONE (11:46)
--- NOTE | 2017-08-25 11:57 | HOSPPROG ---
Hospitalist Progress Note Assessment/Plan: Lymphoma with rectal mass - s/p diverting sigmoid colostomy. Unfortunately her rectal mass is enlarging despite chemotherapy. Discussed case with Dr. Barajas , no further chemo tx options, but will pursue palliative radiation -pain control with fentanyl patch, prn percocet, IV dilaudid -avendano for bladder decompression -dr. utttle, radiation oncologist to see patient today -alerted Dr. Ochoa to admission, but unlikely anything to be done from surgical standpoint -oncology recommends hospice, will start with palliative care consult Urinary retention secondary to above - cont avendano for decompression Retained stool - in rectum, has no ostomy output. She thinks due to constipation. CT shows constipation pattern. -schedule colace -prn senna -surgery alerted for their recommendations Anemia - 2/2 chemo, s/p 2 units prbc's recently in clinic. Hgb 8.3. Was due to Aranesp today -procrit 10,000 u SC today Thrombocytopenia - 2/2 chemo, plts stable at 74K today -follow, transfuse as indicated Hypokalemia - replace per protocol Full code DVT PPLX - Lovenox held due to low platelets Dispo - change to inpt, palliative care, possible hospice Subjective: Pt having rectal pain and pressure, hurts to sit. No fevers. No N/ V. Pain poorly controlled. Taking po. C/O constipation, no ostomy output. Objective: Vital Signs Temp Pulse Resp BP Pulse Ox 36.8 C 84 16 118/66 96 08/25/17 09:04 08/25/17 09:04 08/25/17 09:04 08/25/17 09:04 08/25/17 09:04 Laboratory Results 08/25/17 04:30 08/25/17 04:30 08/24/17 08/25/17 08/26/17 05:59 05:59 05:59 Intake Total 1900 Output Total 1600 Balance 300 - Physical Exam Constitutional: no apparent distress Eyes: PERRL Ears, Nose, Mouth, Throat: moist mucous membranes Cardiovascular: regular rate and rhythym Respiratory: no respiratory distress Gastrointestinal: normoactive bowel sounds, soft, non-tender abdomen, distension , other (no ostomy output, which is pink) Skin: warm Musculoskeletal: full muscle strength Neurologic: AAOx3 Psychiatric: interacting appropriately ICD10 Worksheet Patient Problems: Problems Problem Status Onset Lymphoma Acute Rectal obstruction Acute Urinary retention Acute Abdominal mass Acute Acute cholecystitis Acute Anemia Acute Rectal bleed Acute Uterine fibroid Acute Vaginal hemorrhage Acute
[2017-08-25] MEDS: OXYCODONE/APAP 5/325 TAB PO PRN ×3 (12:03→21:37)
[2017-08-25] MEDS ORDERED: POLYETHYLENE GLYCOL 3350 17 GM PKT PO PRN (12:05)
--- NOTE | 2017-08-25 12:14 | GHP ---
[f rep st] HISTORY AND PHYSICAL DATE OF ADMISSION: 08/24/2017 REASON FOR CONSULTATION: Recurrent mantle cell lymphoma. RECOMMENDATIONS: 1. I agree with having the Carolina in. She will need that chronically. 2. I would recommend a Palliative care consult with home care. Perhaps with [facility] and/or another hospice that provides palliative. 3. The 3rd option would be palliative radiotherapy to the pelvic mass for symptom relief, especially of low back pain. EXECUTIVE SUMMARY: The patient is a very pleasant 67-year-old woman who unfortunately has had a mant le cell lymphoma since July 22, 2012, stage SHERI. She is a patient of Dr. Dorina Gaytan, and she has had a variety of prior treatments. She has generally refractory disease. She has had prior treatme nt with bendamustine and Rituxan. She has had ibrutinib. She has been treated with CAR-T cells. Mo st recently, she has been on Rituxan GVP. In spite of all this, she has been living independently, b ut is having increasing difficulty with pain due to presacral and coccygeal pain and trouble with uri nation, she is unable to urinate. She has urinary retention. CT scans done on the night of admissio n on August 24, revealed that she has an enlarging pelvic mass. Depending on where you measure it, it is about 110 mm, and she also has abdominal masses which are partially calcified and some periaort ic disease. She also has some ascites in the left upper quadrant. Given all of this and the prior therapy, the issues are, what is the best management for her now? Sh arleen has a Carolina catheter inserted and she feels much better. ALLERGIES: The patient has 1 drug allergy, which is to sulfa, which causes a rash. SOCIAL HISTORY: The patient is a never smoker. IMMUNIZATIONS: She has had her flu vaccine this year. PAST SURGICAL HISTORY: She has a diverting colostomy in place. She has also had a parathyroidectomy . In December of 2015, she had an exploratory lap with lymph node biopsy. She has had a prior cholecyst ectomy in 2014. She had uterine embolization for fibroids. REVIEW OF SYSTEMS: As noted above. CLINICAL EXAM: GENERAL: Reveals a woman who is very pleasant, alert, and very intelligent. EYES: She has no scleral icterus. NECK: No cervical adenopathy. LUNGS: Clear to P and A. CV: S1 deshaun l, S2 normally split. No S3, S4, murmur. Her rhythm is regular. ABDOMEN: Distended in the lower a bdomen. LOWER EXTREMITIES: She has no lower extremity edema or calf tenderness. NEUROLOGICAL: She is intact. CLINICAL IMPRESSION: 1. Bladder outlet obstruction. Carolina catheter will provide relief and that should stay in. 2. Coccygeal/sacral pain. I am recommending that she is going to again meet with a radiation oncolo gist. I have talked to Dr. Donahue, and I have reached out to Dr. Dorina Elias, for consideration of pa lliative radiation. 3. Advanced refractory mantle cell lymphoma. Her best option to remain independent probably is atif g to be to maybe stop treatment altogether to avoid toxicity, and also they have palliative care in t he home setting. 4. She may or may not will look at additional treatment, but I think she can discuss that with her o ncologist, Dr. Elias. For the time being, will have Radiation consult and a Palliative Care consult. /[id number]/MODL
[2017-08-25] MEDS: ONDANSETRON 4 MG/2 ML VIAL IVP PRN (13:07)
[2017-08-25] MEDS ORDERED: POTASSIUM Cl (KCl) 100 ML IV SCH (13:45)
[2017-08-25] MEDS ORDERED: POTASSIUM Cl (KCl) 10 MEQ in NS 100 ML IV SCH (14:30)
[2017-08-25] MEDS: DOCUSATE SODIUM 100 MG CAP PO SCH ×2 (14:56→20:06)
[2017-08-25] MEDS: SENNOSIDES 17.6 MG/10 ML UDL PO SCH ×2 (14:57→20:06)
[2017-08-25] MEDS: NS W/ 20 KCl/L 1,000 ML IV SCH (14:58)
--- NOTE | 2017-08-25 15:39 | PDMN ---
Medical Necessity Medical necessity: change to IP; los>2mn for lymphoma w/rectal mass, enlarging on chemo, secondary urinary retention, retained stool, and poor pain control; requires pain control, avendano, radiation oncology consult, and palliative care consult; comorbid anemia, thrombocytopenia, and hypokalemia; per order and progress note 08/25/17
[2017-08-25] MEDS ORDERED: ACETAMINOPHEN 500 MG TAB PO SCH (16:00)
--- NOTE | 2017-08-25 21:42 | SOAPPROG ---
[facility] Progress Note Assessment/Plan: Assessment/Plan: 67 Y F c mantle cell lymphoma refractory to multiple treatments s/p diverting double barrel colostomy admitted with worsened disease and new urinary retention/hydronephrosis. Seen earlier today. Reviewed CT images with Dr. Ochoa today and discussed patient with medicine. Doing well with avendano catheter. Palliative care/hospice vs radiation being considered. No further surgical recommendations. Did discuss oral miralax and fleets enema via her proximal colostomy limb for constipation. Objective: Vital Signs Temp Pulse Resp BP Pulse Ox 36.2 C 80 16 112/66 95 08/25/17 20:27 08/25/17 20:27 08/25/17 20:27 08/25/17 20:27 08/25/17 20:27 Laboratory Results 08/25/17 18:30 08/24/17 08/25/17 08/26/17 05:59 05:59 05:59 Output Total 400 Balance -400 ICD10 Worksheet Patient Problems: Problems Problem Status Onset Lymphoma Acute Rectal obstruction Acute Urinary retention Acute Abdominal mass Acute Acute cholecystitis Acute Anemia Acute Rectal bleed Acute Uterine fibroid Acute Vaginal hemorrhage Acute
[2017-08-26] MEDS: ONDANSETRON 4 MG/2 ML VIAL IVP PRN ×3 (03:55→20:30)
[2017-08-26] MEDS: OXYCODONE/APAP 5/325 TAB PO PRN ×4 (05:07→19:00)
[2017-08-26] MEDS: DOCUSATE SODIUM 100 MG CAP PO SCH ×2 (08:58→20:15)
[2017-08-26] MEDS: ACYCLOVIR 400 MG TAB PO SCH ×2 (08:58→20:15)
[2017-08-26] MEDS: DAPSONE 100 MG TAB PO SCH (08:58)
[2017-08-26] MEDS: SENNOSIDES 17.6 MG/10 ML UDL PO SCH ×2 (08:58→20:15)
--- NOTE | 2017-08-26 09:14 | GCON ---
[f rep st] CONSULTATION RADIATION ONCOLOGY CONSULTATION REASON FOR CONSULTATION: Large bulky mantle cell lymphoma of her pelvis now causing bladder outlet obstruction and pain, role for radiation. PATIENT IDENTIFICATION: The patient is a 67-year-old woman who has had a several year history of chemo-refractory mantle cell lymphoma with large bulky rectal tumor, perisplenic tumor, and retroperitoneal lymphadenopathy stage SHERI, status post multiple lines of systemic therapy, most recently on Rituxan, gemcitabine and cisplatin under the care of Dr. Dorina Elias. She was admitted for recent enlargement of the mass causing bladder outlet obstruction, and I am being consulted regarding the role of radiation for the management of her disease. HISTORY OF PRESENT ILLNESS: The patient has had a history of stage SHERI mantle cell lymphoma of her pelvis since July 2012. She has received multiple lines of systemic chemotherapy under the care of Dr. Dorina Elias at [facility]. Most recently, she was give a dose of Rituxan, gemcitabine, and cisplatin on August 11, 2017. Some time thereafter, her blood counts became quite low, and chemo has been delayed. While at home, the patient has been living independently; however, over the past couple days she has developed an inability to urinate and, as well, increasing pelvic pain and low back pain. This prompted a visit to her primary care physician who performed a straight catheterization which relieved the pressure on her bladder ; however, she was still unable to urinate and presented to the [facility] emergency department for further workup and management. She was admitted to the hospital , and a catheterization was performed, and now she has an indwelling Carolina catheter which relieved almost 1 L of urine. A repeat CT scan of the abdomen and pelvis performed with IV contrast revealed an approximately 14 cm central rectal mass that increased in size, previously measured about 12 cm. There was a grossly calcified lobation of the mass occupying the anterior right pelvis again noted. There is a large heterogenously enhancing mass that arises from the superior pole of the spleen, difficult to measure but grossly enlarged and increasing in size, and a left periaortic lobule of the mass measuring 5 cm. There is extensive retroperitoneal lymphadenopathy that has grossly increased. I initially met with the patient back in June 2017 to discuss the role of palliative radiation while she was an inpatient in the hospital admitted for intractable pain. At that point, it was decided to undergo the chemotherapy that I mentioned above and to forego radiation. INTERVAL HISTORY: Since being admitted to the hospital, the patient overall has been stable. She continues to have an indwelling Carolina catheter which seems to be draining tea-colored urine which seems to be a little bit blood tinged. She also reports some rectal discharge but does have a diverted colostomy performed because of the pressure that the mass exerted on her colon. She says she has been a little bit constipated and has not had as much output from her colostomy. The rectal discharge seems to be tinged with a little bit of blood but overall seems to be mucous with no tissue coming out. Otherwise, she has not had much in the way of weight loss. She was quite functional prior to coming into the hospital and was able to walk independently and take care of herself. She is here today with her son and her significant other. REVIEW OF SYSTEMS: A 14-point review of systems was obtained and is negative except as mentioned above. PAST MEDICAL HISTORY: Mantle cell lymphoma of the pelvis. PAST SURGICAL HISTORY: Diverting colostomy performed in 2016, parathyroidectomy , exploratory laparotomy with lymph node biopsy in 2015, cholecystectomy in 2014 , and embolization of uterine fibroids. FAMILY HISTORY: Noncontributory to patient's current condition. SOCIAL HISTORY: She lives in [place] with her significant other. Her son is also in [place] and is quite present in her care. She is a nonsmoker, nondrinker. MEDICATIONS: Acyclovir, Dapsone, docusate, Lovenox, fentanyl, Dilaudid, Zofran , Percocet, MiraLAX, potassium chloride, Compazine, trazodone, senna. ALLERGIES: Sulfa drugs. PHYSICAL EXAMINATION: VITAL SIGNS: Blood pressure 119/69, heart rate is 76, respiratory is 16, oxygen sat is 94%, temperature 36.7. GENERAL: The patient is a moderately ill appearing, somewhat frail, 67-year-old woman who appears her stated age and in no acute distress, sitting comfortably in her hospital room with obviously enlarged abdomen. CARDIOVASCULAR: Regular rate and rhythm. Normal S1, S2. No murmurs, rubs, or gallops. LUNGS: Clear to auscultation bilaterally. No wheezes, crackles or rubs. ABDOMEN: Very distended belly that is somewhat firm and edematous. There is enlargement of the right lower and left lower quadrants. Bowel sounds are present. RECTAL: She does have some serosanguineous mucousy discharge from the rectum with no obvious tumor seen at the anal verge. The rest of the rectal exam was deferred. EXTREMITIES: Warm and well perfused. 2+ pulses. No clubbing, cyanosis or edema. LABS: Hemoglobin 8.3, hematocrit 25.8, platelets at 74. ANC 1.27. IMAGING: Please see HPI above. PATHOLOGY: Mantle cell lymphoma. ASSESSMENT AND PLAN: The patient is a 67-year-old woman with chemo-refractory mantle cell lymphoma predominantly of the pelvis, retroperitoneal lymph nodes and spleen status post multiple lines of chemotherapy, admitted to the hospital for increasing pain and bladder outlet obstruction. I am being consulted regarding the role of radiation in the treatment of her lymphoma. I had a very long discussion with the patient, Arina and Long, today in her hospital room regarding the diagnosis and management of chemo-refractory mantle cell lymphoma. I reviewed her recent clinical course after her chemotherapy which seemed to be a little bit toxic for her bone marrow as she continues to have cytopenias after the chemotherapy that was delivered on August 11, 2017. I reviewed the CT scan results with her today which do show increased size of most of the previous masses that she had which suggests that chemotherapy was not as effective as anticipated for her lymphoma. I also described that some of the areas looked a little bit more necrotic which could suggest tumor response; however, the overall size of the mass has grown. At this point, her bladder outlet obstruction is being managed with an indwelling Carolina. Her pain is being managed with a fentanyl patch and Dilaudid as needed. Dr. Barajas has ordered a palliative care consult, which I do agree with and think it would be very valuable in the care of the patient moving forward. The patient has discussed her care further with Dr. Elias, and there is no overwhelming desire to undergo further systemic therapy since her bone marrow continues to recover from recent chemo and she did not have response to multiple other lines of treatment. I focused my discussion on the role of radiation for Stage IV lymphoma. In general, this is a palliative course which is designed to improve her symptoms and less likely to give her long-term control and certainly not cure for lymphoma. The general regimen for palliative radiation would be over a period of anywhere from 5-15 treatments with daily radiation during that time. Once again, the goals of palliative radiation would be to improve primarily her pain and would be unlikely to reverse any bladder outlet obstruction given the size of her mass. I explained that there is probably a 20% to 30% chance of long-term improvement of her symptoms given the bulk of the tumor. I do not think a standard palliative radiation regimen would give her, honestly, much relief of any of her symptoms. We did discuss potentially more aggressive course of radiation to the predominant pelvic mass with the hopes of giving her a higher chance of long- term control and relief of her symptoms. This would be anywhere from about 4-5 weeks. In a definitive setting for chemo-refractory lymphoma, guidelines do support anywhere from a 40-50 gabriel regimen of radiation, which we could attempt. This would increase her risk of potential side effects in terms of nausea, vomiting, fatigue, skin irritation, lose stools or diarrhea or issues with radiation cystitis. The longer course would potentially give her a better chance at cytoreducing this tumor, but once again, given the bulk and distribution of her tumor, it is unlikely to give her probably more than a 50% chance of response. We talked about the risks, benefits, rationale, acute and long-term side effect profile of external beam radiotherapy to the pelvis. If she were to undergo radiation, I would focus my effort on the bulky pelvic mass and probably also the extent into the right lower quadrant. I would not be focusing on the splenic mass or the other retroperitoneal lymph nodes, which do have the potential to grow during the radiation. At this point, I exchanged educational information regarding radiation with the patient and her family, and they will discuss the next best course of action. The patient does still wish to keep clinical trial options open and will reach out to her research nurse at the [facility] to see if there are any clinical trials open. Otherwise, I left it with them that the patient will call me with any questions , concerns, or once she has made the decision, and we can move forward with radiation at that point in time. /[id number]/MODL MTDD
--- NOTE | 2017-08-26 11:14 | SOAPPROG ---
SOAP Progress Note Assessment/Plan: Assessment: 1. Recurrent refractory Mantle Cell lymphoma: She is progressing on R-GDP. The rectal mass is symptomatic. I spoke with Dr. Donahue. He is thinking perhaps 5- 15 treatments and assess as we go. Most lymphomas respond to radiation. Her prognosis is short so there is a reason to minimize radiation. I spoke about her prognosis most likely being less than 6 months and could be even 3 months. Therefore palliative care is appropriate. She will meet with Osvaldo today and Dr. Donahue tomorrow. 2. Bladder out let obstruction: she will have a avendano until the end. She will need nursing support. Plan:Home tomorrow most likely 08/26/17 11:09 Subjective: Uncomfortable to sit more than 5 min. She met with Dr. Donahue about radiation. The final decisions are made yet. She is willing to look at palliative care. Objective: Vital Signs Temp Pulse Resp BP Pulse Ox 36.5 C 85 14 117/69 93 08/26/17 03:50 08/26/17 03:50 08/26/17 03:50 08/26/17 03:50 08/26/17 03:50 Laboratory Results 08/26/17 03:52 08/26/17 03:52 08/25/17 08/26/17 08/27/17 05:59 05:59 05:59 Intake Total 2211 236 Output Total 800 Balance 1411 236 Alert and interactive - Time Spent With Patient Time Spent With Patient: 45 min with patient, son, SO, SW, and chaplan. ICD10 Worksheet Patient Problems: Problems Problem Status Onset Vaginal hemorrhage Acute Uterine fibroid Acute Acute cholecystitis Acute Abdominal mass Acute Rectal bleed Acute Anemia Acute Urinary retention Acute Lymphoma Acute Rectal obstruction Acute
--- NOTE | 2017-08-26 14:35 | ASMTCMCOM ---
CM Note CM Note Notes: Pt admitted for bladder outlet obstruction. Pt has a hx of mantle cell lymphoma. Pt hs been refractory to chemo. Dr Donahue met with pt yesterday to discuss palliative radiation options. Dr Courtney recommended a palliative care consult which took place this morning with pt, pt's son Arina, pt's partner Long, palliative berry planter Grant and this SW. Pt has been very active in her life She loves to be in nature stating that nature is her spiritual connection. She stated that a good day for her is to have some energy and minimal pain. She and her son understand that prognosis is ~3-[address] Barajas, who spoke with pt during palliative consult. They are both hoping that radiation might allow pt to have some good quality days with the time she has left. She is currently deciding between 5-15 days of radiation vs [address] Donahue plans to come and discuss these options further with her tomorrow. It is possible that a hospice could be found that will take pt on palliative radiation. [facility] will likely not. Pt and son were interested in hearing from [facility] the difference between palliative and hospice care in the home before they make a decision about radiation, home care and hospice or palliative. Tricia was sent a referral and they will meet with pt and son today at 2:00 to discuss. Provided pt and son a list of questions to ask as well as info on both options. Pt also wanted info on the Medical Aid in Dying program.which was provided. DC likely tomorrow or Wednesday. CM to follow Date Signed: 08/26/2017 02:34 PM Electronically Signed By:Roxy Castro LCSW
--- NOTE | 2017-08-26 14:37 | ASMTLACE ---
LACE Length of stay for Answers: 1 day current admission Acuity / Level of Answers: Yes Care: Did the patient have an inpatient admission? Comorbidities - select Answers: Any tumor (including all that apply lymphoma or leukemia) Palliative care / End of life trajectory # of Emergency department Answers: 1-2 visits in the last 6 months Score: 9 Date Signed: 08/26/2017 02:36 PM Electronically Signed By:Roxy Castro LCSW
--- NOTE | 2017-08-26 16:45 | HOSPPROG ---
Hospitalist Progress Note Assessment/Plan: Lymphoma with rectal mass - s/p diverting sigmoid colostomy. Unfortunately her rectal mass is enlarging despite chemotherapy. Discussed case with Dr. Barajas , no further chemo tx options, but will pursue palliative radiation. Discussed with surgery, no further surgical options. -pain control with fentanyl patch, prn percocet, IV dilaudid. Will consider increasing fentanyl tomorrow -avendano for bladder decompression -radiation oncology to initiate treatment likely tomorrow -oncology recommends hospice, roberto to see today for palliative care vs hospice if able to be on hospice and still receive radiation treatments Urinary retention secondary to above - cont avendano for decompression Retained stool - in rectum, has no ostomy output. She thinks due to constipation. CT shows constipation pattern. -schedule colace, senna -miralax, enema per ostomy, discussed with surg Anemia - 2/2 chemo, s/p 2 units prbc's recently in clinic. Hgb stable. -procrit 10,000 u SC yesterday Thrombocytopenia - 2/2 chemo, plts stable at 74K today -follow, transfuse as indicated Hypokalemia - replace per protocol Full code DVT PPLX - Lovenox held due to low platelets Dispo - cont inpt, likely home with hospice in 1-2 days once constipation and pain better managed Subjective: Pt doing ok, pain not very well controlled. Still no BM. No fevers. She has uop. No flank pain. No N/V. Taking some po. Objective: Vital Signs Temp Pulse Resp BP Pulse Ox 36.9 C 82 18 129/68 H 94 08/26/17 16:00 08/26/17 16:00 08/26/17 16:00 08/26/17 16:00 08/26/17 16:00 Laboratory Results 08/26/17 03:52 08/26/17 03:52 08/25/17 08/26/17 08/27/17 05:59 05:59 05:59 Intake Total 2211 236 Output Total 800 Balance 1411 236 - Physical Exam Constitutional: no apparent distress Eyes: PERRL Ears, Nose, Mouth, Throat: moist mucous membranes Cardiovascular: regular rate and rhythym Respiratory: no respiratory distress, clear to auscultation Gastrointestinal: other (distended, palpable mass in lower abdomen, +tenderness , ostomy bulging, no output) Skin: warm, normal color Musculoskeletal: full muscle strength Neurologic: AAOx3 Psychiatric: interacting appropriately ICD10 Worksheet Patient Problems: Problems Problem Status Onset Lymphoma Acute Rectal obstruction Acute Urinary retention Acute Abdominal mass Acute Acute cholecystitis Acute Anemia Acute Rectal bleed Acute Uterine fibroid Acute Vaginal hemorrhage Acute
[2017-08-26] MEDS: NS W/ 20 KCl/L 1,000 ML IV SCH (18:41)
[2017-08-27 03:34] VITALS: O2SAT 92
[2017-08-27] MEDS: OXYCODONE/APAP 5/325 TAB PO PRN ×3 (04:12→14:22)
[2017-08-27 10:25] VITALS: BP 122/64; PULSE 94; RESP 18; TEMP 98.4
--- NOTE | 2017-08-27 10:34 | SOAPPROG ---
SOAP Progress Note Assessment/Plan: Assessment: 1. Recurrent refractory Mantle Cell lymphoma: She is progressing on R-GDP. The rectal mass is symptomatic. I spoke with Dr. Donahue. He is thinking perhaps 5- 15 treatments and assess as we go. She wants more information from him. Most lymphomas respond to radiation but hers may not. Her prognosis is short so there is a reason to minimize time on therapy. I spoke about her prognosis most likely being less than 6 months and could be even 3 months. Therefore palliative care is appropriate. She will met with Osvaldo and they are considering hospice care. 2. Bladder out let obstruction: she will have a avendano until the end. She will need nursing support. Plan:Home tomorrow most likely 08/26/17 11:09 08/27/17 10:32 Subjective: She is doing about the same. We are making plans for discharge Objective: Vital Signs Temp Pulse Resp BP Pulse Ox 36.9 C 94 18 122/64 H 92 08/27/17 10:21 08/27/17 10:21 08/27/17 10:21 08/27/17 10:21 08/27/17 10:21 Laboratory Results 08/27/17 04:20 08/27/17 04:20 08/26/17 08/27/17 08/28/17 05:59 05:59 05:59 Intake Total 2211 1036 Output Total 800 850 Balance 1411 186 ICD10 Worksheet Patient Problems: Problems Problem Status Onset Vaginal hemorrhage Acute Uterine fibroid Acute Acute cholecystitis Acute Abdominal mass Acute Rectal bleed Acute Anemia Acute Urinary retention Acute Lymphoma Acute Rectal obstruction Acute
[2017-08-27] MEDS: ACYCLOVIR 400 MG TAB PO SCH (10:46)
[2017-08-27] MEDS: DOCUSATE SODIUM 100 MG CAP PO SCH (10:46)
[2017-08-27] MEDS: DAPSONE 100 MG TAB PO SCH (10:46)
[2017-08-27] MEDS: SENNOSIDES 17.6 MG/10 ML UDL PO SCH (10:47)
[2017-08-27] MEDS ORDERED: ENOXAPARIN 40 MG/0.4 ML SYR SC SCH (11:15)
[2017-08-27] MEDS ORDERED: fentaNYL 25 MCG PATCH TD SCH (11:45)
--- NOTE | 2017-08-27 14:00 | ASMTCMCOM ---
CM Note CM Note Notes: Pt is ready for DC today.She has chosen to have raditaion so [facility] will not be able to take as hospice pt until she completes radiation. [facility] alerted and they will be faxed final orders for palliative. [facility] will provide HC RN. Date Signed: 08/27/2017 01:59 PM Electronically Signed By:Roxy Castro LCSW
--- NOTE | 2017-08-27 14:01 | PDIAF ---
- Diagnosis Diagnosis: mantle cell lymphoma Code Status: Full Code - Medication Management Discharge Medications: Medications to Continue on Transfer Herbals/Supplements -Info Only 1 each PO DAILY 04/05/15 [Last Taken 08/12/17 08: 00] Cholecalciferol Vit D3 [Vitamin D3 (*)] 1,000 units PO DAILY 12/15/15 [Last Taken 08/23/17] Prochlorperazine Maleate [Compazine 10mg (*)] 10 mg PO DAILY PRN 07/03/17 [Last Taken 08/23/17] Acyclovir [Zovirax 400 mg (*)] 400 mg PO BID tab 07/13/17 [Last Taken 08/24/17 08:00] Acetaminophen [Tylenol ES 500 mg (*)] 500 mg PO Q6 PRN 08/24/17 [Last Taken Unknown] Dapsone [Dapsone 100 mg (*)] 100 mg PO DAILY 08/24/17 [Last Taken 08/24/17] Docusate Sodium [Colace 100 MG (*)] 100 mg PO BID PRN 08/24/17 [Last Taken Unknown] Hydrocodone/Acetaminophen [[place] 5/325 (*)] 1 - 2 tab PO Q4H PRN 08/24/17 [Last Taken 08/24/17] traZODone [traZODONE 50MG (*)] 50 mg PO HS PRN 08/24/17 [Last Taken Unknown] fentaNYL [Duragesic 25 MCG Patch (*)] 25 mcg TD Q72H #15 patch 08/27/17 [Last Taken Unknown] oxyCODONE/APAP 5/325 [Percocet 5/325 (*)] 1 - 2 tab PO Q3H PRN tab 08/27/17 [ Last Taken Unknown] Discharge Medications: Refer to the Discharge Home Medication list for PRN reason. PICC Care - Routine: N/A - Orders Services needed: Home Care, Registered Nurse, Physical Therapy Home Care Face to Face: I certify that this patient was under my care and that I had the required [id number] encounter meeting the encounter requirements on the discharge day. My findings support the fact that the patient is homebound as defined in Home Care Face to Face Continued: CMS Chapter 7 Medicare Benefits Manual 30.1.1 , The condition of the patient is such that there exists a normal inability to leave home and consequently, leaving home would require a considerable and taxing effort. Isolation Type: None Diet Recommendation: no restrictions on diet Additional: Palliative care - Follow Up Care Current Providers and Referrals: Dorina Elias MD [Primary Care Provider] - As per Instructions
--- NOTE | 2017-08-27 17:05 | GDS ---
[f rep st] DISCHARGE SUMMARY DISCHARGE DIAGNOSES: 1. Mantle cell lymphoma with enlarging rectal mass. 2. Bladder outlet obstruction secondary to above, decompressed with indwelling [place] catheter. 3. Constipation in the setting of chronic opioid use, improved with enema and MiraLAX. 4. Anemia secondary to chemotherapy, status post Procrit. 5. Thrombocytopenia secondary to chemotherapy. 6. Hypokalemia, resolved with replacement. CONSULTANTS: Dr. Earl Barajas, oncology. HISTORY: For details please see the History and Physical dated August 24, 2017. In brief, the patien dorothea is a 67-year-old female with a history of mantle cell lymphoma and has previously undergone diverti ng sigmoid colostomy, who presented to the emergency department with difficulty urinating. She had r ecently been treated with chemotherapy, but unfortunately has not responded to treatment. A Carolina ca theter was placed in the emergency department. The patient is admitted to the hospital for further m anagement. HOSPITAL COURSE: Patient was admitted to the Cancer Care Unit. Her tumor is unfortunately progressi ng on chemotherapy. Oncology consulted and unfortunately has no further treatment options, other sariah n palliative radiation. Dr. Donahue from radiation oncology visited with patient and will plan for o utpatient palliative radiation therapy. Palliative care consult was obtained. She met with [facility] and will proceed with outpatient palliative care with likely transition to hospice care. She was giv en a prognosis of 3-6 months by Oncology. Her urinary retention improved with placement of a Carolina c atheter which continues to drain. Pain control was addressed with a fentanyl patch which was up-titr ated from 12 to 25. She will continue to use Percocet for breakthrough pain. She received an enema through her ostomy tube which affected return of stool through her ostomy. She will continue p.r.n. daily MiraLAX and enemas in the setting of chronic opioid use. DISPOSITION: Patient is discharged home in stable condition with [facility] Palliative Care and likely transition to hospice. DISCHARGE MEDICATIONS: Please see [facility] for completed outpatient medication list. New medication s on discharge include: 1. Fentanyl 25 mcg transdermal q.72 hours (#15, no refills). 2. Percocet 5/325 1-2 tabs p.o. q.3 hours p.r.n. FOLLOWUP: Dr. Dorina Elias [facility]. /[id number]/MODL
== END 2017-08-27 18:30 | disposition home health service (06) | DRG 841 ==
LOC: F1N 20:15 → OBSVTOIN 08-25 12:05
PROVIDERS: ADMIT Student in an Organized Health Care Education/Training Program; ATTEND Student in an Organized Health Care Education/Training Program
PROC: 0T9B70Z Drainage of Bladder with Drainage Device, Via Natural or Artificial Opening (ICD-10-PCS; principal; 2017-08-25)
DX: C83.16 Mantle cell lymphoma, intrapelvic lymph nodes (principal); N13.30 Unspecified hydronephrosis; E87.6 Hypokalemia; D64.81 Anemia due to antineoplastic chemotherapy; K59.03 Drug induced constipation; T40.2X5A Adverse effect of other opioids, initial encounter; E78.00 Pure hypercholesterolemia, unspecified; Z93.3 Colostomy status
CPT/HCPCS: 96374; 97116-GP; 97161-GP; G0378; G8978-GP-CI; G8979-GP-CI; G8980-GP-CI; J0885; J1170; J1642; J1940; J2405; J3480; P9016; P9040; Q9967

== ENCOUNTER → 2017-09-01 | Outpatient (CLI) | payer OTHER | LOC: FIMAGING 15:37 | PROVIDERS: ATTEND Internal Medicine Hematology & Oncology | DX: R22.43 Localized swelling, mass and lump, lower limb, bilateral (principal) ==

== ENCOUNTER 2017-09-07 16:32 | Outpatient (CLI) | payer OTHER | END 2017-09-07 22:40 | disposition home or self-care (01) | LOC: FOBOP 16:32 | PROVIDERS: ATTEND Internal Medicine Hematology & Oncology | PROC: 30233N1 Transfusion of Nonautologous Red Blood Cells into Peripheral Vein, Percutaneous Approach (ICD-10-PCS; principal; 2017-09-07) | DX: C83.10 Mantle cell lymphoma, unspecified site (principal) | CPT/HCPCS: 36430; P9016; P9040 ==